=== PATIENT | female | born 1985 | race Caucasian/White ===

== ENCOUNTER 2016-12-27 00:35 | Observation (INO) | payer MEDICAID ==
[2016-12-27] VITALS (27 sets, daily range): BP systolic 98–138; BP diastolic 60–91
[~2016-12-27] VITALS: Ht 167.6 cm; Wt 87.6 kg
[~2016-12-27 00:35] MED LIST: ACHD5005 PO; ALPR.25T PO; DOCU100C37 PO; FLUO20CA42 PO; HYDR-3812 PO; IBP800T PO; IBUP-1773 PO; LEVO500T69 PO; MAGN400O7 PO; NAPR-243 PO; NEOM10SO5 LEFT EAR; NITR-65 PO; OXYC-12 PO; PRD20T PO; PREN1TAB14 PO; TRM50T PO
--- OUTSIDE RECORDS SUMMARY | 2016-12-27 00:42 | XMS REPORT ---
Author Author JANETH MANUEL [facility] eClinicalWorks Address Unknown Phone Unavailable Care Team Providers Care Lap Cutter Name Role Phone JANETH MANUEL CP Unavailable Allergies No Known Allergies Problems Problem Type Condition Code Onset Dates Condition Status Problem Dermatophytosis B35.9 Active Problem Glycosuria R81 Active Problem Low back pain M54.5 Active Problem Galactorrhea not associated with childbirth N64.3 Active Problem Nausea and vomiting during O21.9 Active Problem Tobacco use affecting in second trimester, antepartum O99.332 Active Problem BMI 31.0-31.9,adult Z68.31 Active Problem Agoraphobia F40.00 Active Problem Social anxiety disorder F40.10 Active Problem History of section complicating O34.21 Active Problem Bipolar disorder, unspecified F31.9 Active Medications No Known Medications Results No Known Results Summary Purpose eClinicalWorks Submission
--- OUTSIDE RECORDS SUMMARY | 2016-12-27 00:43 | XMS REPORT ---
Author Author RUBI PENN [facility] Address [address] [place] [address] Care Team Providers Care Commercial Credit Analyst Name Role Phone PENNRUBI Unavailable PROBLEMS Type Condition ICD9-CM Code [id number] Code Onset Dates Condition Status SNOMED Code Assessment control counseling Z30.9 Feb, Active 18841592 Assessment depression F53 Feb, Active 25338673 Problem BMI 31.0-31.9,adult Z68.31 Active 367911759 Problem History of section complicating O34.21 Active 659496185 Problem Social anxiety disorder F40.10 Active 09086288 Assessment Routine follow-up Z39.2 Feb, Active 615129422 Problem Bipolar disorder, unspecified F31.9 Active 30325691 Problem Agoraphobia F40.00 Active 64241720 ALLERGIES Substance Reaction Event Type Date Status Penicillin V Potassium Unknown Drug Allergy Feb, Active Bactrim Unknown Drug Allergy Feb, Active Amoxicillin Unknown Drug Allergy Feb, Active SOCIAL HISTORY No smoking Hx information available PLAN OF CARE VITAL SIGNS Height 65 in 2016-02-22 Weight 192.0 lbs 2016-02-22 Heart Rate 74 bpm 2016-02-22 Respiratory Rate 18 2016-02-22 BMI 31.95 kg/m2 2016-02-22 Blood pressure systolic 126 mmHg 2016-02-22 Blood pressure diastolic 70 mmHg 2016-02-22 MEDICATIONS Medication Instructions Dosage Frequency Start Date End Date Duration Status 28-0.8 MG Orally daily 1 24h Jun, Active Ortho Micronor 0.35 MG Orally Once a day 1 tablet 24h Feb, Active Prozac 20 MG Orally Once a day 1 capsule in the morning 24h Feb, Active RESULTS No Results PROCEDURES Procedure Date Ordered Related Diagnosis Body Site Office Visit, Est Pt., Level 3 Feb 22, 2016 IMMUNIZATIONS No Known Immunizations
--- OUTSIDE RECORDS SUMMARY | 2016-12-27 00:43 | XMS REPORT ---
Author Author JANETH MANUEL [facility] eClinicalWorks Address Unknown Phone Unavailable Care Team Providers Care Air Crew Supervisor Name Role Phone JNAETH MANUEL Unavailable Allergies No Known Allergies Problems Problem [...] Problem Bipolar disorder, unspecified F31.9 Active Medications Medication Code System Code Instructions Start Date End Date Status Dosage Flagyl [facility] [address]-82 500 MG Orally One time Jul 22, 2015 4 tablet Results No Known Results Summary Purpose eClinicalWorks Submission
--- OUTSIDE RECORDS SUMMARY | 2016-12-27 00:43 | XMS REPORT ---
Author Author HERB STEPHENS [facility] eClinicalWorks Address Unknown Phone Unavailable Care Team Providers Care Mental Health Therapist Name Role Phone HERB STEPHENS CP Unavailable Allergies, Adverse Reactions, Alerts Substance Reaction Event Type Penicillin V Potassium Info Not Available Drug Allergy Bactrim Info Not Available Drug Allergy Amoxicillin Info Not Available Drug Allergy Problems Problem Type Condition Code Onset Dates Condition Status Assessment Moderate episode of recurrent major depressive disorder F33.1 Active Assessment Social anxiety disorder F40.10 Active Assessment Borderline personality disorder F60.3 Active Problem Moderate episode of recurrent major depressive disorder F33.1 Active Problem BMI 31.0-31.9,adult Z68.31 Active Problem Borderline personality disorder F60.3 Active Problem Agoraphobia F40.00 Active Problem Social anxiety disorder F40.10 Active Problem History of section complicating O34.21 Active Problem Bipolar disorder, unspecified F31.9 Active Medications Medication Code System Code Instructions Start Date End Date Status [facility] [address]-01 20 mg Orally Once a day 1 capsule in the morning Ortho Micronor [facility] [address]-05 0.35 MG Orally Once a day Feb 22, 2016 1 tablet [facility] 56452-20984 28-0.8 MG Orally daily Jun 20, 2015 1 Prozac [facility] [address]-35 10 MG Orally Once a day 1 capsule in the morning Procedures Procedure Coding System Code Date Office Visit, Est Pt., Level 2 CPT-4 40307 Apr 20, 2016 Vital Signs Date/Time: Apr 20, 2016 Cardiac Monitoring Heart Rate 68 bpm Weight 184.4 lbs Height 65 in BMI 30.68 Index Blood Pressure Diastolic 76 mmHg Blood Pressure Systolic 122 mmHg Results No Known Results Summary Purpose eClinicalWorks Submission
--- OUTSIDE RECORDS SUMMARY | 2016-12-27 00:43 | XMS REPORT ---
Author RUBI Gonzalez [facility] eClinicalWorks Address Unknown Phone Unavailable Care Team Providers Care Arts Administrator Or Manager Name Role Phone RUBI PENN CP Unavailable Allergies, Adverse Reactions, Alerts Substance Reaction Event Type Penicillin V Potassium Info Not Available Drug Allergy Bactrim Info Not Available Drug Allergy Amoxicillin Info Not Available Drug Allergy Problems Problem Type Condition Code Onset Dates Condition Status Assessment care, subsequent in third trimester Z34.83 Active Problem Social anxiety disorder F40.10 Active Problem Dermatophytosis B35.9 Active Assessment 37 weeks gestation of Z3A.37 Active Problem Need for MMR vaccine Z23 Active Problem BMI 31.0-31.9,adult Z68.31 Active Problem care, subsequent in third trimester Z34.83 Active Problem Bipolar disorder, unspecified F31.9 Active Problem Agoraphobia F40.00 Active Problem Tobacco use affecting in second trimester, antepartum O99.332 Active Problem History of section complicating O34.21 Active Medications Medication Code System Code Instructions Start Date End Date Status Dosage [facility] [address]07 28-0.8 MG Orally daily Jun 20, 2015 1 Procedures Procedure Coding System Code Date Office Visit, Est Pt., Level 3 CPT-4 62984 December 26, 2015 URINE-NO MICRO CPT-4 91160 December 26, 2015 Vital Signs Date/Time: December 26, 2015 Cardiac Monitoring Heart Rate 92 bpm Weight 223.7 lbs Height 65 in Blood Pressure Diastolic 78 mmHg Blood Pressure Systolic 122 mmHg Results No Known Results Summary Purpose eClinicalWorks Submission
--- OUTSIDE RECORDS SUMMARY | 2016-12-27 00:43 | XMS REPORT ---
Author Author RUBI PENN [facility] Address [address] [place] [address] Care Team Providers Care Major Donor Coordinator Name Role Phone RUBI PENN Unavailable PROBLEMS Type Condition ICD9-CM Code [id number] Code Onset Dates Condition Status SNOMED Code Problem BMI 31.0-31.9,adult Z68.31 Active 762015356 Problem History of section complicating O34.21 Active 783024804 Problem Social anxiety disorder F40.10 Active 07818313 Problem Bipolar disorder, unspecified F31.9 Active 69736907 Problem Agoraphobia F40.00 Active 94256042 ALLERGIES Unknown Allergies SOCIAL HISTORY No smoking Hx information available PLAN OF CARE VITAL SIGNS MEDICATIONS Unknown Medications RESULTS No Results PROCEDURES No Known procedures IMMUNIZATIONS No Known Immunizations
--- OUTSIDE RECORDS SUMMARY | 2016-12-27 00:43 | XMS REPORT ---
Author RUBI oGnzalez [facility] eClinicalWorks Address Unknown Phone Unavailable Care Team Providers Care Technical Mgr Name Role Phone RUBI PENN CP Unavailable Allergies No Known Allergies Problems Problem Type Condition Code Onset Dates Condition Status Assessment care, subsequent in third trimester Z34.83 Active Problem Social anxiety disorder F40.10 Active Problem Dermatophytosis B35.9 Active Assessment 38 weeks gestation of Z3A.38 Active Problem Need for MMR vaccine Z23 Active Problem BMI 31.0-31.9,adult Z68.31 Active Problem care, subsequent in third trimester Z34.83 Active Problem Bipolar disorder, unspecified F31.9 Active Problem Agoraphobia F40.00 Active Problem Tobacco use affecting in second trimester, antepartum O99.332 Active Problem History of section complicating O34.21 Active Medications Medication Code System Code Instructions Start Date End Date Status Dosage [facility] [address]402 28-0.8 MG Orally daily Jun 20, 2015 1 Procedures Procedure Coding System Code Date URINE-NO MICRO CPT-4 08083 January 02, 2016 Office Visit, Est Pt., Level 3 CPT-4 05009 January 02, 2016 Vital Signs Date/Time: January 02, 2016 Blood Pressure Systolic 130 mmHg Weight 224.5 lbs Height 65 in Blood Pressure Diastolic 76 mmHg Results No Known Results Summary Purpose eClinicalWorks Submission
--- OUTSIDE RECORDS SUMMARY | 2016-12-27 00:43 | XMS REPORT ---
Author Author JANETH Palmer [facility] Address Unknown Care Team Providers Care Obstetrics Gyn Physician Name Role Phone JANETH Palmer Unavailable PROBLEMS Type Condition ICD9-CM Code [id number] Code Onset Dates Condition Status SNOMED Code Problem BMI 31.0-31.9,adult Z68.31 Active 348668212 Problem History of section complicating O34.21 Active 135085749 Problem Social anxiety disorder F40.10 Active 71458090 Problem Bipolar disorder, unspecified F31.9 Active 08508606 Problem Agoraphobia F40.00 Active 56066669 ALLERGIES Unknown Allergies SOCIAL HISTORY No smoking Hx information available PLAN OF CARE VITAL SIGNS MEDICATIONS Unknown Medications RESULTS No Results PROCEDURES No Known procedures IMMUNIZATIONS No Known Immunizations
--- OUTSIDE RECORDS SUMMARY | 2016-12-27 00:43 | XMS REPORT ---
Author Author RUBI PENN [facility] Address [address] [place] [address] Care Team Providers Care Licensing Officer Name Role Phone RUBI PENN Unavailable PROBLEMS Type Condition ICD9-CM Code OJU23-FH Code Onset Dates Condition Status SNOMED Code Problem BMI 31.0-31.9,adult Z68.31 Active 110119128 Problem History of section complicating O34.21 Active 075530675 Problem Social anxiety disorder F40.10 Active 96931394 Problem Bipolar disorder, unspecified F31.9 Active 35051642 Problem Agoraphobia F40.00 Active 98771909 ALLERGIES Unknown Allergies SOCIAL HISTORY No smoking Hx information available PLAN OF CARE VITAL SIGNS MEDICATIONS Unknown Medications RESULTS No Results PROCEDURES No Known procedures IMMUNIZATIONS No Known Immunizations
--- OUTSIDE RECORDS SUMMARY | 2016-12-27 00:43 | XMS REPORT ---
Author Author RUBI EPNN [facility] Address [address] [place] [address] Care Team Providers Care Special Education Associate Name Role Phone RUBI PENN Unavailable PROBLEMS Type Condition ICD9-CM Code UZU45-UK Code Onset Dates Condition Status SNOMED Code Problem BMI 31.0-31.9,adult Z68.31 Active 577031308 Problem History of section complicating O34.21 Active 679559632 Problem Social anxiety disorder F40.10 Active 26882381 Problem Bipolar disorder, unspecified F31.9 Active 39838385 Problem Agoraphobia F40.00 Active 52674541 ALLERGIES Unknown Allergies SOCIAL HISTORY No smoking Hx information available PLAN OF CARE VITAL SIGNS MEDICATIONS Unknown Medications RESULTS No Results PROCEDURES No Known procedures IMMUNIZATIONS No Known Immunizations
--- OUTSIDE RECORDS SUMMARY | 2016-12-27 00:43 | XMS REPORT ---
Author Author JANETH MANUEL [facility] eClinicalWorks Address Unknown Phone Unavailable Care Team Providers Care Planning Consultant Name Role Phone JANETH MANUEL Unavailable Allergies No Known Allergies Problems Problem Type Condition Code Onset Dates Condition Status Problem Dermatophytosis B35.9 Active Problem Glycosuria R81 Active Problem Low back pain M54.5 Active Problem Nausea and vomiting during O21.9 Active Problem Tobacco use affecting in second trimester, antepartum O99.332 Active Problem BMI 31.0-31.9,adult Z68.31 Active Problem Agoraphobia F40.00 Active Problem Social anxiety disorder F40.10 Active Problem History of section complicating O34.21 Active Problem Bipolar disorder, unspecified F31.9 Active Assessment Headache R51 Active Assessment 14 weeks gestation of Z3A.14 Active Assessment Routine screening for STI (sexually transmitted infection) Z11.3 Active Assessment care, subsequent in second trimester Z34.82 Active Assessment UTI (urinary tract infection) in in second trimester O23.42 Active Problem Galactorrhea not associated with childbirth N64.3 Active Medications Medication Code System Code Instructions Start Date End Date Status Dosage [facility] [address]189 28-0.8 MG Orally daily Jun 20, 2015 1 Diclegis [facility] [address]-95 10-10 MG Orally Once a day Jun 20, 2015 August 19, 2015 2 tablets at bedtime on an empty stomach Macrobid [facility] [address]-00 100 MG Orally every 12 hrs Jul 21, 2015Jul 1 capsule with food Procedures Procedure Coding System Code Date No Charge CPT-4 79500 Jul 21, 2015 TRICHOMONAS ASSAY W/OPTIC CPT-4 63793 Jul 21, 2015 URINALYSIS, AUTO, W/O SCOPE CPT-4 54665 Jul 21, 2015 Office Visit, Est Pt., Level 3 CPT-4 11629 Jul 21, 2015 CULTURE, BACTERIA, OTHER CPT-4 50377 Jul 21, 2015 URINE CULTURE/COLONY COUNT CPT-4 50517 Jul 21, 2015 Vital Signs Date/Time: Jul 21, 2015 Temperature 98.0 F Weight 186.9 lbs Height 65 in BMI 31.102 Index Blood Pressure Diastolic 70 mmHg Blood Pressure Systolic 118 mmHg Cardiac Monitoring Heart Rate 78 bpm Results Name Result Date Reference Range Unit Abnormality Flag UA LONG DIP (IN HOUSE) ----DARREN 1+ 20150721 ----NIT positive 20150721 ----SG 1.030 20150721 ----KET trace 20150721 ----RUTH 1+ 20150721 ----GLU neg 20150721 ----Odor no 20150721 ----pH 6.0 20150721 ----BLO 1+ 20150721 ----URO 0.2 20150721 ----Protein 2+ 20150721 ----Lot # [id number] ----Exp date 20150721 ----Clarity slightly cloudy 20150721 ----Color dark yellow 20150721 TRICHOMONAS (IN HOUSE) ----Exp date 20150721 ----Control + 20150721 ----Lot # [id number] ----TRICHOMONAS positive 20150721 Summary Purpose eClinicalWorks Submission
--- OUTSIDE RECORDS SUMMARY | 2016-12-27 00:44 | XMS REPORT ---
Author Author JANETH MANUEL [facility] eClinicalWorks Address Unknown Phone Unavailable Care Team Providers Care Train Control Electronic Technician Name Role Phone JANETH MANUEL Unavailable Allergies, Adverse Reactions, Alerts Substance Reaction Event Type Penicillin V Potassium Info Not Available Drug Allergy Bactrim Info Not Available Drug Allergy Amoxicillin Info Not Available Drug Allergy Problems Problem Type Condition Code Onset Dates Condition Status Problem Dermatophytosis B35.9 Active Problem Glycosuria R81 Active Problem Low back pain M54.5 Active Problem Nausea and vomiting during O21.9 Active Assessment care, subsequent in first trimester Z34.81 Active Problem Tobacco use affecting in second trimester, antepartum O99.332 Active Assessment Tobacco use affecting in first trimester, antepartum O99.331 Active Problem BMI 31.0-31.9,adult Z68.31 Active Problem Agoraphobia F40.00 Active Problem Social anxiety disorder F40.10 Active Problem History of section complicating O34.21 Active Problem Bipolar disorder, unspecified F31.9 Active Assessment Bipolar disorder, unspecified F31.9 Active Assessment History of section complicating O34.21 Active Assessment Social anxiety disorder F40.10 Active Assessment Agoraphobia F40.00 Active Assessment Nausea and vomiting during O21.9 Active Assessment BMI 31.0-31.9,adult Z68.31 Active Assessment Influenza vaccination administered at current visit Z23 Active Assessment Normal in multigravida Z34.80 Active Assessment with 9 completed weeks gestation Z3A.09 Active Problem Galactorrhea not associated with childbirth N64.3 Active Medications Medication Code System Code Instructions Start Date End Date Status Dosage [facility] [address]70 28-0.8 MG Orally daily Jun 20, 2015 1 Diclegis [facility] [address]-81 10-10 MG Orally Once a day Jun 20, 2015 August 19, 2015 2 tablets at bedtime on an empty stomach Procedures Procedure Coding System Code Date GLUCOSE TEST CPT-4 03311 Jun 20, 2015 BLOOD TYPING, ABO CPT-4 22394 Jun 20, 2015 URINE TEST CPT-4 42254 Jun 20, 2015 RUBELLA ANTIBODY CPT-4 84596 Jun 20, 2015 COMPLETE CBC W/AUTO DIFF WBC CPT-4 80121 Jun 20, 2015 BLOOD TYPING, RH (D) CPT-4 01069 Jun 20, 2015 URINE CULTURE/COLONY COUNT CPT-4 72311 Jun 20, 2015 URINALYSIS, AUTO, W/O SCOPE CPT-4 03289 Jun 20, 2015 FLUARIX QUAD (3 & UP)-[facility]-2014 CPT-4 11152 Jun 20, 2015 ASSAY THYROID STIM HORMONE CPT-4 29917 Jun 20, 2015 SINGLE IMMUNIZATION ADMIN CPT-4 69067 Jun 20, 2015 Office Visit, Est Pt., Level 3 CPT-4 62191 Jun 20, 2015 No Charge CPT-4 05551 Jun 20, 2015 VENIPUNCT, ROUTINE* CPT-4 36271 Jun 20, 2015 RBC ANTIBODY SCREEN CPT-4 38932 Jun 20, 2015 Vital Signs Date/Time: Jun 20, 2015 Temperature 97.6 F Weight 188.2 lbs Height 65 in BMI 31.318 Index Blood Pressure Diastolic 74 mmHg Blood Pressure Systolic 132 mmHg Cardiac Monitoring Heart Rate 88 bpm Results Name Result Date Reference Range Unit Abnormality Flag ROUTINE VENIPUNCTURE TSH () ----TSH 2.200 20150620 0.450-4.500 uIU/mL TEST, URINE (IN HOUSE) ----RESULTS POSITIVE 20150620 ----Lot # [id number] ----Control + 20150620 ----Exp date 20150620 UA LONG DIP (IN HOUSE) ----RUTH negative 20150620 ----GLU negative 20150620 ----SG >=1.030 20150620 ----KET negative 20150620 ----pH 6.0 20150620 ----Protein negative 20150620 ----BLO 1+ 20150620 ----DARREN 1+ 20150620 ----Color dark yellow 20150620 ----Odor no 20150620 ----Exp date 20150620 ----URO 0.2 E.U./dL 20150620 ----NIT negative 20150620 ----Clarity clear 20150620 ----Lot # [id number] RUBELLA ANTIBODIES, IgG ----Rubella Antibodies, IgG <0.90 20150620 Immune >0.99 index L ANTIBODY SCREEN ----Antibody Screen Negative 20150620 Negative BLOOD TYPE/RH FACTOR ----ABO Grouping A 20150620 ----Rh Factor Positive 20150620 GLUCOSE SHAWN 1 HOUR ----Gestational Diabetes Screen 110 20150620 65-139 mg/dL CBC ----Hemoglobin 13.6 25290786 11.1-15.9 g/dL ----RBC 4.43 01286211 3.77-5.28 x10E6/uL ----MCV 94 81223984 79-97 fL ----Hematocrit 41.7 64061382 34.0-46.6 % ----MCHC 32.6 96906361 31.5-35.7 g/dL ----MCH 30.7 92032435 26.6-33.0 pg ----Platelets 287 [id number] 150-379 x10E3/uL ----RDW 12.8 64779870 12.3-15.4 % ----Neutrophils 70 47301118 % ----Monocytes 6 00749559 % ----Lymphs 23 07063057 % ----Basos 0 76021166 % ----Eos 1 09674865 % ----Immature Grans (Abs) 0.0 84699759 0.0-0.1 x10E3/uL ----Lymphs (Absolute) 2.2 67713127 0.7-3.1 x10E3/uL ----WBC 9.6 27456196 3.4-10.8 x10E3/uL ----Immature Granulocytes 0 53943656 % ----Neutrophils (Absolute) 6.7 78060061 1.4-7.0 x10E3/uL ----Baso (Absolute) 0.0 25294576 0.0-0.2 x10E3/uL ----Monocytes(Absolute) 0.6 16457593 0.1-0.9 x10E3/uL ----Eos (Absolute) 0.1 79287947 0.0-0.4 x10E3/uL Immunizations Vaccine Administration Date FLUARIX QUAD (3 & UP)-[facility]-2014Jun 20, 2015 Summary Purpose eClinicalWorks Submission
--- OUTSIDE RECORDS SUMMARY | 2016-12-27 00:44 | XMS REPORT ---
Author Author JAY JAY PIERRE [facility] eClinicalWorks Address Unknown Phone Unavailable Care Team Providers Care Sap Pi Developer Name Role Phone JAY JAY PIERRE CP Unavailable Allergies No Known Allergies Problems Problem Type Condition ICD-9 Code Onset Dates Condition Status Assessment Irritable bowel syndrome 564.1 Active Problem Pain in joint, forearm 719.43 Active Problem Nonsuppurative otitis media, not specified as acute or chronic 381.4 Active Problem Galactorrhea not associated with childbirth 611.6 Active Problem Incomplete spontaneous without mention of complication 634.91 Active Problem examination or test, positive result V72.42 Active Problem Engorgement of breast, 676.24 Active Problem 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, 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 Problem General counseling for prescription of oral contraceptives V25.01 Active Problem Screening for malignant neoplasm of the cervix V76.2 Active Problem Lumbago 724.2 Active Problem Urinary frequency 788.41 Active Problem Screening examination for venereal disease V74.5 Active Problem Glycosuria 791.5 Active Problem Allergy, unspecified not elsewhere classified 995.3 Active Problem Dermatophytosis of other specified sites 110.8 Active Problem Routine gynecological examination V72.31 Active Problem Routine follow-up V24.2 Active Problem Need for prophylactic vaccination and inoculation, Influenza V04.81 Active Problem Need for prophylactic vaccination and inoculation against rubella alone V04.3 Active Problem Previous delivery, unspecified as to episode of care or not applicable 654.20 Active Problem Supervision of other normal V22.1 Active Problem DTAP TEST V06.1 Active Problem Screening for diabetes mellitus V77.1 Active Problem Urinary tract infection, site not specified 599.0 Active Problem Screening for iron deficiency anemia V78.0 Active Problem Unspecified antepartum hemorrhage, unspecified as to episode of care 641.90 Active Problem Screening of Streptococcus B V28.6 Active Problem Threatened , unspecified as to episode of care 640.00 Active Problem Other postprocedural status V45.89 Active Medications No Known Medications Procedures Procedure Coding System Code Date COMPLETE CBC W/AUTO DIFF WBC CPT-4 60986 Mar 03, 2015 COMPREHEN METABOLIC PANEL CPT-4 71449 Mar 03, 2015 ASSAY THYROID STIM HORMONE CPT-4 89599 Mar 03, 2015 VENIPUNCT, ROUTINE* CPT-4 14883 Mar 03, 2015 X-RAY EXAM OF ABDOMEN CPT-4 66632 Mar 03, 2015 Results Name Result Date Reference Range Unit Abnormality Flag ROUTINE VENIPUNCTURE Summary Purpose eClinicalWorks Submission
--- OUTSIDE RECORDS SUMMARY | 2016-12-27 00:44 | XMS REPORT ---
Author Author HERB STEPHENS [facility] eClinicalWorks Address Unknown Phone Unavailable Care Team Providers Care Air Traffic Control Operator Name Role Phone HERB STEPHENS CP Unavailable [...] Instructions Start Date End Date Status Dosage Prozac [facility] [address]-69 10 MG Orally Once a day Feb 22, 2016 1 capsule in the morning Prozac [facility] [address]-97 20 mg Orally Once a day Mar 23, 2016 1 capsule in the morning Ortho Micronor [facility] [address]-49 0.35 MG Orally Once a day Feb 22, 2016 1 tablet [facility] [address] 28-0.8 MG Orally daily Jun 20, 2015 1 Procedures Procedure Coding System Code Date Office Visit, Est Pt., Level 3 CPT-4 00143 Mar 23, 2016 Vital Signs Date/Time: Mar 23, 2016 BMI 31.58 Index Weight 189.8 lbs Height 65 in Results No Known Results Summary Purpose eClinicalWorks Submission
[2016-12-27] MEDS ORDERED: NS IV 1000 ML 1,000 ML IV ONE (00:46)
--- OUTSIDE RECORDS SUMMARY | 2016-12-27 00:47 | XMS REPORT | Continuity of Care Document ---
Author Author Counts Include [facility] Address Unknown Phone Unavailable Allergies Active Description Code Type Severity Reaction Onset Reported/Identified Relationship to Patient Clinical Status Yes Penicillins Drug Allergy N/A N/A 11/26/2008 Yes Penicillins Drug Allergy 11/26/2008 Yes Bactrim Drug Allergy N/A N/A 02/05/2012 Yes Bactrim Drug Allergy 02/05/2012 Yes Penicillins [id number] Drug Allergy Moderate HIVES 02/10/2012 Yes sulfamethoxazole [id number] Drug Allergy Mild RASH 02/10/2012 Yes trimethoprim [id number] Drug Allergy Mild RASH 02/10/2012 Medications Problems Date Dx Coded Attending Type Code Diagnosis Diagnosed By 02/26/2008 RUBI PENN DO V25.49 Surveillance Of Other Contraceptive Method 02/26/2008 RUBI PENN DO V58.69 Medication High Risk 02/26/2008 V25.49 Surveillance Of Other Contraceptive Method 02/26/2008 V58.69 Medication High Risk 02/26/2008 RUBI PENN DO V25.49 Surveillance Of Other Contraceptive Method 02/26/2008 RUBI PENN DO V58.69 Medication High Risk 02/26/2008 RUBI PENN DO V25.49 Surveillance Of Other Contraceptive Method 02/26/2008 RUBI PENN DO V58.69 Medication High Risk 02/26/2008 V25.49 Surveillance Of Other Contraceptive Method 02/26/2008 V58.69 Medication High Risk 02/26/2008 V25.49 Surveillance Of Other Contraceptive Method 02/26/2008 V58.69 Medication High Risk 02/26/2008 RUBI PENN DO V25.49 Surveillance Of Other Contraceptive Method 02/26/2008 RUBI PENN DO V58.69 Medication High Risk 02/26/2008 RUBI PENN DO V25.49 Surveillance Of Other Contraceptive Method 02/26/2008 RUBI PENN DO V58.69 Medication High Risk 02/26/2008 V25.49 Surveillance Of Other Contraceptive Method 02/26/2008 V58.69 Medication High Risk 02/26/2008 V25.49 Surveillance Of Other Contraceptive Method 02/26/2008 V58.69 Medication High Risk 02/26/2008 V25.49 Surveillance Of Other Contraceptive Method 02/26/2008 V58.69 Medication High Risk 02/26/2008 V25.49 Surveillance Of Other Contraceptive Method 02/26/2008 V58.69 Medication High Risk 02/26/2008 V25.49 Surveillance Of Other Contraceptive Method 02/26/2008 V58.69 Medication High Risk 02/26/2008 V25.49 Surveillance Of Other Contraceptive Method 02/26/2008 V58.69 Medication High Risk 02/26/2008 VIRAJ LIBRARY TECHNICIAN, JOSÉ LUIS S V25.49 Surveillance Of Other Contraceptive Method 02/26/2008 VIRAJ LIBRARY TECHNICIAN, JOSÉ LUIS S V58.69 Medication High Risk 02/26/2008 PENN DO RUBI K V25.49 Surveillance Of Other Contraceptive Method 02/26/2008 PENN DO RUBI K V58.69 Medication High Risk 02/26/2008 ANGELO LIBRARY TECHNICIAN, ROMA A V25.49 Surveillance Of Other Contraceptive Method 02/26/2008 ANGELO LIBRARY TECHNICIAN, ROMA A V58.69 Medication High Risk 02/26/2008 ANGELO LIBRARY TECHNICIAN ROMA A V25.49 Surveillance Of Other Contraceptive Method 02/26/2008 ANGELO LIBRARY TECHNICIAN, ROMA A V58.69 Medication High Risk 02/26/2008 ANGELO LIBRARY TECHNICIAN ROMA A V25.49 Surveillance Of Other Contraceptive Method 02/26/2008 ANGELO LIBRARY TECHNICIAN, ROMA A V58.69 Medication High Risk 02/26/2008 ANGELO LIBRARY TECHNICIAN, ROMA A V25.49 Surveillance Of Other Contraceptive Method 02/26/2008 ANGELO LUCIANA, ROMA A V58.69 Medication High Risk 02/26/2008 KRIS SHOEMAKER APRN V25.49 Surveillance Of Other Contraceptive Method 02/26/2008 KRIS SHOEMAKER APRN V58.69 Medication High Risk 02/26/2008 ANGELO CHOWDHURY ROMA A V25.49 Surveillance Of Other Contraceptive Method 02/26/2008 ANGELO CHOWDHURY ROMA A V58.69 Medication High Risk 02/26/2008 ANGELO LIBRARY TECHNICIAN, ROMA A V25.49 Surveillance Of Other Contraceptive Method 02/26/2008 ANGELO LIBRARY TECHNICIAN, ROMA A V58.69 Medication High Risk 02/26/2008 ANGELO LIBRARY TECHNICIAN, ROMA A V25.49 Surveillance Of Other Contraceptive Method 02/26/2008 ANGELO LIBRARY TECHNICIAN, ROMA A V58.69 Medication High Risk 02/26/2008 TJ HOWELL MD V25.49 Surveillance Of Other Contraceptive Method 02/26/2008 TJ HOWELL MD V58.69 Medication High Risk 03/07/2009 PENN DO, RUBI K 784.0 Headache 03/07/2009 784.0 Headache 03/07/2009 PENN DO, RUBI K 784.0 Headache 03/07/2009 PENN DO, RUBI K 784.0 Headache 03/07/2009 784.0 Headache 03/07/2009 784.0 Headache 03/07/2009 PENN DO, RUBI K 784.0 Headache 03/07/2009 PENN DO, RUBI K 784.0 Headache 03/07/2009 784.0 Headache 03/07/2009 784.0 Headache 03/07/2009 784.0 Headache 03/07/2009 784.0 Headache 03/07/2009 784.0 Headache 03/07/2009 784.0 Headache 03/07/2009 JOSÉ LUIS CALI APRN 784.0 Headache 03/07/2009 PENN DO, RUBI K 784.0 Headache 03/07/2009 ANGELO LIBRARY TECHNICIAN, ROMA A 784.0 Headache 03/07/2009 ANGLEO LIBRARY TECHNICIAN, ROMA A 784.0 Headache 03/07/2009 ANGELO LIBRARY TECHNICIAN, ROMA A 784.0 Headache 03/07/2009 ANGELO LIBRARY TECHNICIAN, ROMA A 784.0 Headache 03/07/2009 KRIS SHOEMAKER APRN 784.0 Headache 03/07/2009 ANGELO LIBRARY TECHNICIAN, ROMA A 784.0 Headache 03/07/2009 ANGELO LIBRARY TECHNICIAN, ROMA A 784.0 Headache 03/07/2009 ANGELO LIBRARY TECHNICIAN, ROMA A 784.0 Headache 03/07/2009 TJ HOWELL MD 784.0 Headache 09/08/2009 PENN DO, RUBI K 535.40 Other Specified Gastritis, Without Mention Of Hemorrhage 09/08/2009 PENN DO, RUBI K 599.0 Urinary Tract Infection, Site Not Specified 09/08/2009 535.40 Other Specified Gastritis, Without Mention Of Hemorrhage 09/08/2009 599.0 Urinary Tract Infection, Site Not Specified 09/08/2009 PENN DO, RUBI K 535.40 Other Specified Gastritis, Without Mention Of Hemorrhage 09/08/2009 PENN DO, RUBI K 599.0 Urinary Tract Infection, Site Not Specified 09/08/2009 PENN DO, RUBI K 535.40 Other Specified Gastritis, Without Mention Of Hemorrhage 09/08/2009 PENN DO, RUBI K 599.0 Urinary Tract Infection, Site Not Specified 09/08/2009 535.40 Other Specified Gastritis, Without Mention Of Hemorrhage 09/08/2009 599.0 Urinary Tract Infection, Site Not Specified 09/08/2009 535.40 Other Specified Gastritis, Without Mention Of Hemorrhage 09/08/2009 599.0 Urinary Tract Infection, Site Not Specified 09/08/2009 PENN DO, RUBI K 535.40 Other Specified Gastritis, Without Mention Of Hemorrhage 09/08/2009 PENN DO, RUBI K 599.0 Urinary Tract Infection, Site Not Specified 09/08/2009 PENN DO, RUBI K 535.40 Other Specified Gastritis, Without Mention Of Hemorrhage 09/08/2009 PENN DO, RUBI K 599.0 Urinary Tract Infection, Site Not Specified 09/08/2009 535.40 Other Specified Gastritis, Without Mention Of Hemorrhage 09/08/2009 599.0 Urinary Tract Infection, Site Not Specified 09/08/2009 535.40 Other Specified Gastritis, Without Mention Of Hemorrhage 09/08/2009 599.0 Urinary Tract Infection, Site Not Specified 09/08/2009 535.40 Other Specified Gastritis, Without Mention Of Hemorrhage 09/08/2009 599.0 Urinary Tract Infection, Site Not Specified 09/08/2009 535.40 Other Specified Gastritis, Without Mention Of Hemorrhage 09/08/2009 599.0 Urinary Tract Infection, Site Not Specified 09/08/2009 535.40 Other Specified Gastritis, Without Mention Of Hemorrhage 09/08/2009 599.0 Urinary Tract Infection, Site Not Specified 09/08/2009 535.40 Other Specified Gastritis, Without Mention Of Hemorrhage 09/08/2009 599.0 Urinary Tract Infection, Site Not Specified 09/08/2009 VIRAJ LIBRARY TECHNICIAN, JOSÉ LUIS S 535.40 Other Specified Gastritis, Without Mention Of Hemorrhage 09/08/2009 VIRAJ LIBRARY TECHNICIAN, JOSÉ LUIS S 599.0 Urinary Tract Infection, Site Not Specified 09/08/2009 PENN DO, RUBI K 535.40 Other Specified Gastritis, Without Mention Of Hemorrhage 09/08/2009 PENN DO, RUBI K 599.0 Urinary Tract Infection, Site Not Specified 09/08/2009 ANGELO LIBRARY TECHNICIAN, ROMA A 535.40 Other Specified Gastritis, Without Mention Of Hemorrhage 09/08/2009 ANGELO LIBRARY TECHNICIAN, ROMA A 599.0 Urinary Tract Infection, Site Not Specified 09/08/2009 ANGELO LIBRARY TECHNICIAN, ROMA A 535.40 Other Specified Gastritis, Without Mention Of Hemorrhage 09/08/2009 ANGELO LIBRARY TECHNICIAN, ROMA A 599.0 Urinary Tract Infection, Site Not Specified 09/08/2009 ANGELO LIBRARY TECHNICIAN, ROMA A 535.40 Other Specified Gastritis, Without Mention Of Hemorrhage 09/08/2009 ANGELO LIBRARY TECHNICIAN, ROMA A 599.0 Urinary Tract Infection, Site Not Specified 09/08/2009 ANGELO LIBRARY TECHNICIAN, ROMA A 535.40 Other Specified Gastritis, Without Mention Of Hemorrhage 09/08/2009 ANGELO LIBRARY TECHNICIAN, ROMA A 599.0 Urinary Tract Infection, Site Not Specified 09/08/2009 SAHARA LIBRARY TECHNICIAN, KRIS T 535.40 Other Specified Gastritis, Without Mention Of Hemorrhage 09/08/2009 SAHARA LIBRARY TECHNICIAN KRIS T 599.0 Urinary Tract Infection, Site Not Specified 09/08/2009 ANGELO LIBRARY TECHNICIAN, ROMA A 535.40 Other Specified Gastritis, Without Mention Of Hemorrhage 09/08/2009 ANGELO LIBRARY TECHNICIAN, ROMA A 599.0 Urinary Tract Infection, Site Not Specified 09/08/2009 ANGELO LIBRARY TECHNICIAN, ROMA A 535.40 Other Specified Gastritis, Without Mention Of Hemorrhage 09/08/2009 ANGELO LIBRARY TECHNICIAN, ROMA A 599.0 Urinary Tract Infection, Site Not Specified 09/08/2009 ANGELO LIBRARY TECHNICIAN, ROMA A 535.40 Other Specified Gastritis, Without Mention Of Hemorrhage 09/08/2009 ANGELO LIBRARY TECHNICIAN, ROMA A 599.0 Urinary Tract Infection, Site Not Specified 09/08/2009 TJ HOWELL MD 535.40 Other Specified Gastritis, Without Mention Of Hemorrhage 09/08/2009 LYNDA BURR, TJ 599.0 Urinary Tract Infection, Site Not Specified 11/09/2009 Ot 786.50 11/09/2009 Ot 786.52 11/10/2009 RUBI PENN DO V72.31 Scientific Database Curator Exam, Routine 11/10/2009 V72.31 Scientific Database Curator Exam, Routine 11/10/2009 RUBI PENN DO V72.31 Scientific Database Curator Exam, Routine 11/10/2009 RUBI PENN DO V72.31 Scientific Database Curator Exam, Routine 11/10/2009 V72.31 Scientific Database Curator Exam, Routine 11/10/2009 V72.31 Scientific Database Curator Exam, Routine 11/10/2009 RUBI PENN DO V72.31 Scientific Database Curator Exam, Routine 11/10/2009 RUBI PENN DO V72.31 Scientific Database Curator Exam, Routine 11/10/2009 V72.31 Scientific Database Curator Exam, Routine 11/10/2009 V72.31 Scientific Database Curator Exam, Routine 11/10/2009 V72.31 Scientific Database Curator Exam, Routine 11/10/2009 V72.31 Scientific Database Curator Exam, Routine 11/10/2009 V72.31 Scientific Database Curator Exam, Routine 11/10/2009 V72.31 Scientific Database Curator Exam, Routine 11/10/2009 JOSÉ LUIS CALI APRN V72.31 Scientific Database Curator Exam, Routine 11/10/2009 RUBI PENN DO V72.31 Scientific Database Curator Exam, Routine 11/10/2009 ANGELO LIBRARY TECHNICIAN, ROMA A V72.31 Scientific Database Curator Exam, Routine 11/10/2009 ANGELO LIBRARY TECHNICIAN, ROMA A V72.31 Scientific Database Curator Exam, Routine 11/10/2009 ANGELO LIBRARY TECHNICIAN, ROMA A V72.31 Scientific Database Curator Exam, Routine 11/10/2009 ANGELO LIBRARY TECHNICIAN, ROMA A V72.31 Scientific Database Curator Exam, Routine 11/10/2009 KRIS SHOEMAKER APRN V72.31 Scientific Database Curator Exam, Routine 11/10/2009 ANGELO LIBRARY TECHNICIAN, ROMA A V72.31 Scientific Database Curator Exam, Routine 11/10/2009 ANGELO LIBRARY TECHNICIAN, ROMA A V72.31 Scientific Database Curator Exam, Routine 11/10/2009 ANGELO LIBRARY TECHNICIAN, ROMA A V72.31 Scientific Database Curator Exam, Routine 11/10/2009 TJ HOWELL MD V72.31 Scientific Database Curator Exam, Routine 01/19/2010 PENN DO, RUBI K 380.10 Infective Otitis Externa, Unspecified 01/19/2010 380.10 Infective Otitis Externa, Unspecified 01/19/2010 PENN DO, RUBI K 380.10 Infective Otitis Externa, Unspecified 01/19/2010 PENN DO, RUBI K 380.10 Infective Otitis Externa, Unspecified 01/19/2010 380.10 Infective Otitis Externa, Unspecified 01/19/2010 380.10 Infective Otitis Externa, Unspecified 01/19/2010 PENN DO, RUBI K 380.10 Infective Otitis Externa, Unspecified 01/19/2010 PENN DO, RUBI K 380.10 Infective Otitis Externa, Unspecified 01/19/2010 380.10 Infective Otitis Externa, Unspecified 01/19/2010 380.10 Infective Otitis Externa, Unspecified 01/19/2010 380.10 Infective Otitis Externa, Unspecified 01/19/2010 380.10 Infective Otitis Externa, Unspecified 01/19/2010 380.10 Infective Otitis Externa, Unspecified 01/19/2010 380.10 Infective Otitis Externa, Unspecified 01/19/2010 JOSÉ LUIS CALI APRN 380.10 Infective Otitis Externa, Unspecified 01/19/2010 PENN DO, RUBI K 380.10 Infective Otitis Externa, Unspecified 01/19/2010 ANGELO LIBRARY TECHNICIAN, ROMA A 380.10 Infective Otitis Externa, Unspecified 01/19/2010 ANGELO LIBRARY TECHNICIAN, ROMA A 380.10 Infective Otitis Externa, Unspecified 01/19/2010 ANGELO LIBRARY TECHNICIAN, ROMA A 380.10 Infective Otitis Externa, Unspecified 01/19/2010 ANGELO LIBRARY TECHNICIAN, ROMA A 380.10 Infective Otitis Externa, Unspecified 01/19/2010 KRIS SHOEMAKER APRN 380.10 Infective Otitis Externa, Unspecified 01/19/2010 ANGELO LIBRARY TECHNICIAN, ROMA A 380.10 Infective Otitis Externa, Unspecified 01/19/2010 ANGELO LIBRARY TECHNICIAN, ROMA A 380.10 Infective Otitis Externa, Unspecified 01/19/2010 ANGELO LIBRARY TECHNICIAN, ROMA A 380.10 Infective Otitis Externa, Unspecified 01/19/2010 LYNDA BURR, TJ 380.10 Infective Otitis Externa, Unspecified 04/04/2010 RUBI PENN DO K 616.10 Vaginitis Vulvovaginitis Unspecified 04/04/2010 PENN PAIGE KUA K V69.2 High-risk Sexual Behavior 04/04/2010 616.10 Vaginitis Vulvovaginitis Unspecified 04/04/2010 V69.2 High-risk Sexual Behavior 04/04/2010 PENN RUBI KU K 616.10 Vaginitis Vulvovaginitis Unspecified 04/04/2010 PAIGE PENN DOA K V69.2 High-risk Sexual Behavior 04/04/2010 RUBI PENN DO K 616.10 Vaginitis Vulvovaginitis Unspecified 04/04/2010 PAIGE PENN DOA K V69.2 High-risk Sexual Behavior 04/04/2010 616.10 Vaginitis Vulvovaginitis Unspecified 04/04/2010 V69.2 High-risk Sexual Behavior 04/04/2010 616.10 Vaginitis Vulvovaginitis Unspecified 04/04/2010 V69.2 High-risk Sexual Behavior 04/04/2010 RUBI PENN DO K 616.10 Vaginitis Vulvovaginitis Unspecified 04/04/2010 RUBI PENN DO K V69.2 High-risk Sexual Behavior 04/04/2010 RUBI PENN DO K 616.10 Vaginitis Vulvovaginitis Unspecified 04/04/2010 RUBI PENN DO K V69.2 High-risk Sexual Behavior 04/04/2010 616.10 Vaginitis Vulvovaginitis Unspecified 04/04/2010 V69.2 High-risk Sexual Behavior 04/04/2010 616.10 Vaginitis Vulvovaginitis Unspecified 04/04/2010 V69.2 High-risk Sexual Behavior 04/04/2010 616.10 Vaginitis Vulvovaginitis Unspecified 04/04/2010 V69.2 High-risk Sexual Behavior 04/04/2010 616.10 Vaginitis Vulvovaginitis Unspecified 04/04/2010 V69.2 High-risk Sexual Behavior 04/04/2010 616.10 Vaginitis Vulvovaginitis Unspecified 04/04/2010 V69.2 High-risk Sexual Behavior 04/04/2010 616.10 Vaginitis Vulvovaginitis Unspecified 04/04/2010 V69.2 High-risk Sexual Behavior 04/04/2010 VIRAJ LIBRARY TECHNICIAN, JOSÉ LUIS S 616.10 Vaginitis Vulvovaginitis Unspecified 04/04/2010 VIRAJ LIBRARY TECHNICIAN, JOSÉ LUIS S V69.2 High-risk Sexual Behavior 04/04/2010 PENN DO, RUBI K 616.10 Vaginitis Vulvovaginitis Unspecified 04/04/2010 PENN DO, RUBI K V69.2 High-risk Sexual Behavior 04/04/2010 ANGELO LIBRARY TECHNICIAN, ROMA A 616.10 Vaginitis Vulvovaginitis Unspecified 04/04/2010 ANGELO LIBRARY TECHNICIAN, ROMA A V69.2 High-risk Sexual Behavior 04/04/2010 ANGELO LIBRARY TECHNICIAN, ROMA A 616.10 Vaginitis Vulvovaginitis Unspecified 04/04/2010 ANGELO LIBRARY TECHNICIAN, ROMA A V69.2 High-risk Sexual Behavior 04/04/2010 ANGELO LIBRARY TECHNICIAN, ROMA A 616.10 Vaginitis Vulvovaginitis Unspecified 04/04/2010 ANGELO LIBRARY TECHNICIAN, ROMA A V69.2 High-risk Sexual Behavior 04/04/2010 ANGELO LIBRARY TECHNICIAN, ROMA A 616.10 Vaginitis Vulvovaginitis Unspecified 04/04/2010 ANGELO LIBRARY TECHNICIAN, ROMA A V69.2 High-risk Sexual Behavior 04/04/2010 KRIS SHOEMAKER APRN 616.10 Vaginitis Vulvovaginitis Unspecified 04/04/2010 KRIS SHOEMAKER APRN V69.2 High-risk Sexual Behavior 04/04/2010 ANGELO LIBRARY TECHNICIAN, ROMA A 616.10 Vaginitis Vulvovaginitis Unspecified 04/04/2010 ANGELO LIBRARY TECHNICIAN, ROMA A V69.2 High-risk Sexual Behavior 04/04/2010 ANGELO LIBRARY TECHNICIAN, ROMA A 616.10 Vaginitis Vulvovaginitis Unspecified 04/04/2010 ANGELO LIBRARY TECHNICIAN, ROMA A V69.2 High-risk Sexual Behavior 04/04/2010 ANGELO LIBRARY TECHNICIAN, ROMA A 616.10 Vaginitis Vulvovaginitis Unspecified 04/04/2010 ANGELO LIBRARY TECHNICIAN, ROMA A V69.2 High-risk Sexual Behavior 04/04/2010 TJ HOWELL MD 616.10 Vaginitis Vulvovaginitis Unspecified 04/04/2010 TJ HOWELL MD V69.2 High-risk Sexual Behavior 07/27/2010 RUBI PENN DO K 379.93 Redness Or Discharge Of Eye 07/27/2010 379.93 Redness Or Discharge Of Eye 07/27/2010 RUBI PENN DO K 379.93 Redness Or Discharge Of Eye 07/27/2010 PAIGE PENN DOA K 379.93 Redness Or Discharge Of Eye 07/27/2010 379.93 Redness Or Discharge Of Eye 07/27/2010 379.93 Redness Or Discharge Of Eye 07/27/2010 PAIGE PENN DOA K 379.93 Redness Or Discharge Of Eye 07/27/2010 PENN PAIGE KUA K 379.93 Redness Or Discharge Of Eye 07/27/2010 379.93 Redness Or Discharge Of Eye 07/27/2010 379.93 Redness Or Discharge Of Eye 07/27/2010 379.93 Redness Or Discharge Of Eye 07/27/2010 379.93 Redness Or Discharge Of Eye 07/27/2010 379.93 Redness Or Discharge Of Eye 07/27/2010 379.93 Redness Or Discharge Of Eye 07/27/2010 JOSÉ LUIS CALI APRN 379.93 Redness Or Discharge Of Eye 07/27/2010 RUBI PENN DO K 379.93 Redness Or Discharge Of Eye 07/27/2010 ANGELO LIBRARY TECHNICIAN, ROMA A 379.93 Redness Or Discharge Of Eye 07/27/2010 ANGELO ANAYAN, ROMA A 379.93 Redness Or Discharge Of Eye 07/27/2010 ANGELO LIBRARY TECHNICIAN, ROMA A 379.93 Redness Or Discharge Of Eye 07/27/2010 ANGELO ANAYAN, ROMA A 379.93 Redness Or Discharge Of Eye 07/27/2010 KRIS SHOEMAKER APRN 379.93 Redness Or Discharge Of Eye 07/27/2010 ANGELO LIBRARY TECHNICIAN, ROMA A 379.93 Redness Or Discharge Of Eye 07/27/2010 ANGELO ANAYAN, ROMA A 379.93 Redness Or Discharge Of Eye 07/27/2010 ANGELO LIBRARY TECHNICIAN, ROMA A 379.93 Redness Or Discharge Of Eye 07/27/2010 TJ HOWELL MD 379.93 Redness Or Discharge Of Eye 10/25/2010 PENN DO, RUBI K 919.5 Insect Bite Infected 10/25/2010 919.5 Insect Bite Infected 10/25/2010 PENN DO, RUBI K 919.5 Insect Bite Infected 10/25/2010 PENN DO, RUBI K 919.5 Insect Bite Infected 10/25/2010 919.5 Insect Bite Infected 10/25/2010 919.5 Insect Bite Infected 10/25/2010 PENN DO, RUBI K 919.5 Insect Bite Infected 10/25/2010 PENN DO, RUBI K 919.5 Insect Bite Infected 10/25/2010 919.5 Insect Bite Infected 10/25/2010 919.5 Insect Bite Infected 10/25/2010 919.5 Insect Bite Infected 10/25/2010 919.5 Insect Bite Infected 10/25/2010 919.5 Insect Bite Infected 10/25/2010 919.5 Insect Bite Infected 10/25/2010 JOSÉ LUIS CALI APRN 919.5 Insect Bite Infected 10/25/2010 PENN DO, RUBI K 919.5 Insect Bite Infected 10/25/2010 ANGELO LIBRARY TECHNICIAN, ROMA A 919.5 Insect Bite Infected 10/25/2010 ANGELO LIBRARY TECHNICIAN, ROMA A 919.5 Insect Bite Infected 10/25/2010 ANGELO LIBRARY TECHNICIAN, ROMA A 919.5 Insect Bite Infected 10/25/2010 ANGELO CHOWDHURY, ROMA A 919.5 Insect Bite Infected 10/25/2010 KRIS SHOEMAKER APRN 919.5 Insect Bite Infected 10/25/2010 ANGELO LIBRARY TECHNICIAN, ROMA A 919.5 Insect Bite Infected 10/25/2010 ANGELO ANAYAN, ROMA A 919.5 Insect Bite Infected 10/25/2010 ANGELO LIBRARY TECHNICIAN, ROMA A 919.5 Insect Bite Infected 10/25/2010 TJ HOWELL MD 919.5 Insect Bite Infected 12/26/2010 PENN DO, RUBI K 625.0 Dyspareunia 12/26/2010 625.0 Dyspareunia 12/26/2010 PENN DO, RUBI K 625.0 Dyspareunia 12/26/2010 PENN DO, RUBI K 625.0 Dyspareunia 12/26/2010 625.0 Dyspareunia 12/26/2010 625.0 Dyspareunia 12/26/2010 RUBI PENN DO K 625.0 Dyspareunia 12/26/2010 PENN DORUBI K 625.0 Dyspareunia 12/26/2010 625.0 Dyspareunia 12/26/2010 625.0 Dyspareunia 12/26/2010 625.0 Dyspareunia 12/26/2010 625.0 Dyspareunia 12/26/2010 625.0 Dyspareunia 12/26/2010 625.0 Dyspareunia 12/26/2010 VIRAJ LIBRARY TECHNICIAN, JOSÉ LUIS Quinteros 625.0 Dyspareunia 12/26/2010 RUBI PENN DO K 625.0 Dyspareunia 12/26/2010 ANGELO LIBRARY TECHNICIAN, ROMA A 625.0 Dyspareunia 12/26/2010 ANGELO LIBRARY TECHNICIAN, ROMA A 625.0 Dyspareunia 12/26/2010 ANGELO LIBRARY TECHNICIAN, ROMA A 625.0 Dyspareunia 12/26/2010 ANGELO LIBRARY TECHNICIAN, ROMA A 625.0 Dyspareunia 12/26/2010 SAHARA LIBRARY TECHNICIANKRIS Dutton 625.0 Dyspareunia 12/26/2010 ANGELO LIBRARY TECHNICIAN, ROMA A 625.0 Dyspareunia 12/26/2010 ANGELO LIBRARY TECHNICIAN, ROMA A 625.0 Dyspareunia 12/26/2010 ANGELO LIBRARY TECHNICIAN, ROMA A 625.0 Dyspareunia 12/26/2010 TJ HOWELL MD 625.0 Dyspareunia 03/22/2011 RUBI PENN DO 595.0 Acute Cystitis 03/22/2011 595.0 Acute Cystitis 03/22/2011 RUBI PENN DO 595.0 Acute Cystitis 03/22/2011 RUBI PENN DO 595.0 Acute Cystitis 03/22/2011 595.0 Acute Cystitis 03/22/2011 595.0 Acute Cystitis 03/22/2011 RUBI PENN DO K 595.0 Acute Cystitis 03/22/2011 RUBI PENN DO K 595.0 Acute Cystitis 03/22/2011 595.0 Acute Cystitis 03/22/2011 595.0 Acute Cystitis 03/22/2011 595.0 Acute Cystitis 03/22/2011 595.0 Acute Cystitis 03/22/2011 595.0 Acute Cystitis 03/22/2011 595.0 Acute Cystitis 03/22/2011 VIRAJ LIBRARY TECHNICIAN, JOSÉ LUIS S 595.0 Acute Cystitis 03/22/2011 RUBI PENN DO 595.0 Acute Cystitis 03/22/2011 ANGELO LIBRARY TECHNICIAN, ROMA A 595.0 Acute Cystitis 03/22/2011 ANGELO LIBRARY TECHNICIAN, ROMA A 595.0 Acute Cystitis 03/22/2011 ANGELO LIBRARY TECHNICIAN, ROMA A 595.0 Acute Cystitis 03/22/2011 ANGELO LIBRARY TECHNICIAN, ROMA A 595.0 Acute Cystitis 03/22/2011 SAHARA LIBRARY TECHNICIAN, KRIS Reyes 595.0 Acute Cystitis 03/22/2011 ANGELO LIBRARY TECHNICIAN, ROMA A 595.0 Acute Cystitis 03/22/2011 ANGELO LIBRARY TECHNICIAN, ROMA A 595.0 Acute Cystitis 03/22/2011 ANGELO LIBRARY TECHNICIAN, ROMA A 595.0 Acute Cystitis 03/22/2011 TJ HOWELL MD 595.0 Acute Cystitis 08/28/2011 RUBI PENN DO 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 08/28/2011 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 08/28/2011 RUBI PENN DO 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 08/28/2011 RUBI PENN DO 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 08/28/2011 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 08/28/2011 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 08/28/2011 RUBI PENN DO 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 08/28/2011 RUBI PENN DO 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 08/28/2011 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 08/28/2011 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 08/28/2011 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 08/28/2011 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 08/28/2011 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 08/28/2011 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 08/28/2011 JOSÉ LUIS CALI APRN 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 08/28/2011 RBUI PENN DO 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 08/28/2011 ANGELO LIBRARY TECHNICIAN, ROMA A 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 08/28/2011 ANGELO LIBRARY TECHNICIAN, ROMA A 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 08/28/2011 ANGELO LIBRARY TECHNICIAN, ROMA A 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 08/28/2011 ANGELO LIBRARY TECHNICIAN, ROMA A 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 08/28/2011 KRIS SHOEMAKER APRN 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 08/28/2011 ANGELO LIBRARY TECHNICIAN, ROMA A 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 08/28/2011 ANGELO LIBRARY TECHNICIAN, ROMA A 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 08/28/2011 ANGELO LIBRARY TECHNICIAN, ROMA A 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 08/28/2011 TJ HOWELL MD 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 09/13/2011 RUBI PENN DO 719.43 Pain In Joint Involving Forearm 09/13/2011 719.43 Pain In Joint Involving Forearm 09/13/2011 RUBI PENN DO 719.43 Pain In Joint Involving Forearm 09/13/2011 RUBI PENN DO 719.43 Pain In Joint Involving Forearm 09/13/2011 719.43 Pain In Joint Involving Forearm 09/13/2011 719.43 Pain In Joint Involving Forearm 09/13/2011 RUBI PENN DO 719.43 Pain In Joint Involving Forearm 09/13/2011 RUBI PENN DO 719.43 Pain In Joint Involving Forearm 09/13/2011 719.43 Pain In Joint Involving Forearm 09/13/2011 719.43 Pain In Joint Involving Forearm 09/13/2011 719.43 Pain In Joint Involving Forearm 09/13/2011 719.43 Pain In Joint Involving Forearm 09/13/2011 719.43 Pain In Joint Involving Forearm 09/13/2011 719.43 Pain In Joint Involving Forearm 09/13/2011 JOSÉ LUIS CALI APRN 719.43 Pain In Joint Involving Forearm 09/13/2011 RUBI PENN DO 719.43 Pain In Joint Involving Forearm 09/13/2011 YELENA STEPHENS APRNIDI A 719.43 Pain In Joint Involving Forearm 09/13/2011 YELENA STEPHENS APRNIDI A 719.43 Pain In Joint Involving Forearm 09/13/2011 ANGELO CHOWDHURY ROMA A 719.43 Pain In Joint Involving Forearm 09/13/2011 YELENA STEPHENS APRNIDI A 719.43 Pain In Joint Involving Forearm 09/13/2011 KRIS SHOEMAKER APRN 719.43 Pain In Joint Involving Forearm 09/13/2011 YELENA STEPHENS APRNIDI A 719.43 Pain In Joint Involving Forearm 09/13/2011 YELENA STEPHENS APRNIDI A 719.43 Pain In Joint Involving Forearm 09/13/2011 ANGELO CHOWDHURY ROMA A 719.43 Pain In Joint Involving Forearm 09/13/2011 TJ HOWELL MD 719.43 Pain In Joint Involving Forearm 02/05/2012 ISAMAR KU RUBI K 599.0 Urinary Tract Infection Site Not Specified 02/05/2012 ISAMAR KU RUBI K 995.3 Allergy Unspecified Not Elsewhere Classified 02/05/2012 599.0 Urinary Tract Infection Site Not Specified 02/05/2012 995.3 Allergy Unspecified Not Elsewhere Classified 02/05/2012 ISAMAR KU RUBI K 599.0 Urinary Tract Infection Site Not Specified 02/05/2012 PENN DO RUBI K 995.3 Allergy Unspecified Not Elsewhere Classified 02/05/2012 PENN DO RUBI K 599.0 Urinary Tract Infection Site Not Specified 02/05/2012 ISAMAR KU RUBI K 995.3 Allergy Unspecified Not Elsewhere Classified 02/05/2012 599.0 Urinary Tract Infection Site Not Specified 02/05/2012 995.3 Allergy Unspecified Not Elsewhere Classified 02/05/2012 599.0 Urinary Tract Infection Site Not Specified 02/05/2012 995.3 Allergy Unspecified Not Elsewhere Classified 02/05/2012 PENN DO, RUBI K 599.0 Urinary Tract Infection Site Not Specified 02/05/2012 PENN DO, RUBI K 995.3 Allergy Unspecified Not Elsewhere Classified 02/05/2012 PENN DO, RUBI K 599.0 Urinary Tract Infection Site Not Specified 02/05/2012 PENN DO, RUBI K 995.3 Allergy Unspecified Not Elsewhere Classified 02/05/2012 599.0 Urinary Tract Infection Site Not Specified 02/05/2012 995.3 Allergy Unspecified Not Elsewhere Classified 02/05/2012 599.0 Urinary Tract Infection Site Not Specified 02/05/2012 995.3 Allergy Unspecified Not Elsewhere Classified 02/05/2012 599.0 Urinary Tract Infection Site Not Specified 02/05/2012 995.3 Allergy Unspecified Not Elsewhere Classified 02/05/2012 599.0 Urinary Tract Infection Site Not Specified 02/05/2012 995.3 Allergy Unspecified Not Elsewhere Classified 02/05/2012 599.0 Urinary Tract Infection Site Not Specified 02/05/2012 995.3 Allergy Unspecified Not Elsewhere Classified 02/05/2012 599.0 Urinary Tract Infection Site Not Specified 02/05/2012 995.3 Allergy Unspecified Not Elsewhere Classified 02/05/2012 SEAN CALI APRNNDA S 599.0 Urinary Tract Infection Site Not Specified 02/05/2012 SEAN CALI APRNNDA S 995.3 Allergy Unspecified Not Elsewhere Classified 02/05/2012 PENN DO RUBI K 599.0 Urinary Tract Infection Site Not Specified 02/05/2012 PENN DO RUBI K 995.3 Allergy Unspecified Not Elsewhere Classified 02/05/2012 ANGELO LIBRARY TECHNICIAN, ORMA A 599.0 Urinary Tract Infection Site Not Specified 02/05/2012 ANGELO LIBRARY TECHNICIAN, ROMA A 995.3 Allergy Unspecified Not Elsewhere Classified 02/05/2012 ANGELO LIBRARY TECHNICIAN, ROMA A 599.0 Urinary Tract Infection Site Not Specified 02/05/2012 ANGELO LIBRARY TECHNICIAN, ROMA A 995.3 Allergy Unspecified Not Elsewhere Classified 02/05/2012 ANGELO LIBRARY TECHNICIAN, ROMA A 599.0 Urinary Tract Infection Site Not Specified 02/05/2012 ANGELO LIBRARY TECHNICIAN, ROMA A 995.3 Allergy Unspecified Not Elsewhere Classified 02/05/2012 ANGELO CHOWDHURY, ROMA A 599.0 Urinary Tract Infection Site Not Specified 02/05/2012 ANGELO CHOWDHURY, ROMA A 995.3 Allergy Unspecified Not Elsewhere Classified 02/05/2012 SAHARA ANAYAMarija KRIS Reyes 599.0 Urinary Tract Infection Site Not Specified 02/05/2012 SAHARA ANAYAMarija KRIS Reyes 995.3 Allergy Unspecified Not Elsewhere Classified 02/05/2012 ANGELO CHOWDHURY, ROMA A 599.0 Urinary Tract Infection Site Not Specified 02/05/2012 ANGELO CHOWDHURY, ROMA A 995.3 Allergy Unspecified Not Elsewhere Classified 02/05/2012 ANGELO LIBRARY TECHNICIAN, ROMA A 599.0 Urinary Tract Infection Site Not Specified 02/05/2012 ANGELO CHOWDHURY, ROMA A 995.3 Allergy Unspecified Not Elsewhere Classified 02/05/2012 ANGELO CHOWDHURY, ROMA A 599.0 Urinary Tract Infection Site Not Specified 02/05/2012 ANGELO ANAYAMarija ROMA A 995.3 Allergy Unspecified Not Elsewhere Classified 02/05/2012 TJ HOWELL MD 599.0 Urinary Tract Infection Site Not Specified 02/05/2012 TJ HOWELL MD 995.3 Allergy Unspecified Not Elsewhere Classified 02/10/2012 Ot 782.1 03/12/2012 RUBI PENN DO V72.42 Test Positive Result 03/12/2012 V72.42 Test Positive Result 03/12/2012 PENN RUBI KU V72.42 Test Positive Result 03/12/2012 RUBI PENN DO V72.42 Test Positive Result 03/12/2012 V72.42 Test Positive Result 03/12/2012 V72.42 Test Positive Result 03/12/2012 PENN RUBI KU V72.42 Test Positive Result 03/12/2012 PENN RUBI KU V72.42 Test Positive Result 03/12/2012 V72.42 Test Positive Result 03/12/2012 V72.42 Test Positive Result 03/12/2012 V72.42 Test Positive Result 03/12/2012 V72.42 Test Positive Result 03/12/2012 V72.42 Test Positive Result 03/12/2012 V72.42 Test Positive Result 03/12/2012 VIRAJ CHOWDHURY, JOSÉ LUIS S V72.42 Test Positive Result 03/12/2012 PENN DO, RUBI K V72.42 Test Positive Result 03/12/2012 ANGELO LIBRARY TECHNICIAN, ROMA A V72.42 Test Positive Result 03/12/2012 ANGELO LIBRARY TECHNICIAN, ROMA A V72.42 Test Positive Result 03/12/2012 ANGELO LIBRARY TECHNICIAN, ROMA A V72.42 Test Positive Result 03/12/2012 ANGELO LIBRARY TECHNICIAN, ROMA A V72.42 Test Positive Result 03/12/2012 SAHARA LIBRARY TECHNICIAN, KRIS Eric V72.42 Test Positive Result 03/12/2012 ANGELO LIBRARY TECHNICIAN, ROMA A V72.42 Test Positive Result 03/12/2012 ANGELO LIBRARY TECHNICIAN, ROMA A V72.42 Test Positive Result 03/12/2012 ANGELO LIBRARY TECHNICIAN, ROMA A V72.42 Test Positive Result 03/12/2012 TJ HOWELL MD V72.42 Test Positive Result 03/26/2012 PENN DO, RUBI K 654.20 PREVIOUS 03/26/2012 PENN DO, RUBI K V04.81 FLU SHOT 03/26/2012 PENN DO, RUBI K V22.1 , NORMAL OTHER 03/26/2012 654.20 PREVIOUS 03/26/2012 V04.81 FLU SHOT 03/26/2012 V22.1 , NORMAL OTHER 03/26/2012 PENN DO, RUBI K 654.20 PREVIOUS 03/26/2012 PENN DO, RUBI K V04.81 FLU SHOT 03/26/2012 PENN DO, RUBI K V22.1 , NORMAL OTHER 03/26/2012 PENN DO, RUBI K 654.20 PREVIOUS 03/26/2012 PENN DO, RUBI K V04.81 FLU SHOT 03/26/2012 PENN DO, RUBI K V22.1 , NORMAL OTHER 03/26/2012 654.20 PREVIOUS 03/26/2012 V04.81 FLU SHOT 03/26/2012 V22.1 , NORMAL OTHER 03/26/2012 654.20 PREVIOUS 03/26/2012 V04.81 FLU SHOT 03/26/2012 V22.1 , NORMAL OTHER 03/26/2012 PENN DO, RUBI K 654.20 PREVIOUS 03/26/2012 PENN DO, RUBI K V04.81 FLU SHOT 03/26/2012 PENN DO, RUBI K V22.1 , NORMAL OTHER 03/26/2012 PENN , RUBI K 654.20 PREVIOUS 03/26/2012 PENN PAIGE KUA K V04.81 FLU SHOT 03/26/2012 PENN DO, RUBI K V22.1 , NORMAL OTHER 03/26/2012 654.20 PREVIOUS 03/26/2012 V04.81 FLU SHOT 03/26/2012 V22.1 , NORMAL OTHER 03/26/2012 654.20 PREVIOUS 03/26/2012 V04.81 FLU SHOT 03/26/2012 V22.1 , NORMAL OTHER 03/26/2012 654.20 PREVIOUS 03/26/2012 V04.81 FLU SHOT 03/26/2012 V22.1 , NORMAL OTHER 03/26/2012 654.20 PREVIOUS 03/26/2012 V04.81 FLU SHOT 03/26/2012 V22.1 , NORMAL OTHER 03/26/2012 654.20 PREVIOUS 03/26/2012 V04.81 FLU SHOT 03/26/2012 V22.1 , NORMAL OTHER 03/26/2012 654.20 PREVIOUS 03/26/2012 V04.81 FLU SHOT 03/26/2012 V22.1 , NORMAL OTHER 03/26/2012 VIRAJ LIBRARY TECHNICIAN, JOSÉ LUIS S 654.20 PREVIOUS 03/26/2012 VIRAJ LIBRARY TECHNICIAN, JOSÉ LUIS S V04.81 FLU SHOT 03/26/2012 VIRAJ LIBRARY TECHNICIAN, JOSÉ LUIS S V22.1 , NORMAL OTHER 03/26/2012 PENN DO, RUBI K 654.20 PREVIOUS 03/26/2012 PENN DO, RUBI K V04.81 FLU SHOT 03/26/2012 PENN DO, RUBI K V22.1 , NORMAL OTHER 03/26/2012 ANGELO LIBRARY TECHNICIAN, ROMA A 654.20 PREVIOUS 03/26/2012 ANGELO LIBRARY TECHNICIAN, ROMA A V04.81 FLU SHOT 03/26/2012 ANGELO CHOWDHURY, ROMA A V22.1 , NORMAL OTHER 03/26/2012 ANGELO ANAYAN, ROMA A 654.20 PREVIOUS 03/26/2012 ANGELO ANAYAN, ROMA A V04.81 FLU SHOT 03/26/2012 ANGELO ANAYAN, ROMA A V22.1 , NORMAL OTHER 03/26/2012 ANGELO ANAYAN, ROMA A 654.20 PREVIOUS 03/26/2012 ANGELO ANAYAN, ROMA A V04.81 FLU SHOT 03/26/2012 ANGELO ANAYAN, ROMA A V22.1 , NORMAL OTHER 03/26/2012 ANGELO ANAYAN, ROMA A 654.20 PREVIOUS 03/26/2012 ANGELO CHOWDHURY, ROMA A V04.81 FLU SHOT 03/26/2012 ANGELO CHOWDHURY, ROMA A V22.1 , NORMAL OTHER 03/26/2012 KRIS SHOEMAKER APRN 654.20 PREVIOUS 03/26/2012 KRIS SHOEMAKER APRN V04.81 FLU SHOT 03/26/2012 KRIS SHOEMAKER APRN V22.1 , NORMAL OTHER 03/26/2012 ANGELO CHOWDHURY, ROMA A 654.20 PREVIOUS 03/26/2012 ANGELO CHOWDHURY, ROMA A V04.81 FLU SHOT 03/26/2012 ANGELO CHOWDHURY, ROMA A V22.1 , NORMAL OTHER 03/26/2012 ANGELO ANAYAN, ROMA A 654.20 PREVIOUS 03/26/2012 ANGELO ANAYAN, ROMA A V04.81 FLU SHOT 03/26/2012 ANGELO ANAYAN, ROMA A V22.1 , NORMAL OTHER 03/26/2012 ANGELO ANAYAN, ROMA A 654.20 PREVIOUS 03/26/2012 ANGELO ANAYAN, ROMA A V04.81 FLU SHOT 03/26/2012 ANGELO ANAYAN, ROMA A V22.1 , NORMAL OTHER 03/26/2012 TJ HOWELL MD 654.20 PREVIOUS 03/26/2012 TJ HOWELL MD V04.81 FLU SHOT 03/26/2012 LYNDA BURR, TJ V22.1 , NORMAL OTHER 04/23/2012 RUBI PENN DO V72.31 CREDIT COUNSELOR EXAM, ROUTINE 04/23/2012 RUBI PENN DO V74.5 STD SCREEN 04/23/2012 V72.31 Scientific Database Curator Exam, Routine 04/23/2012 V74.5 Std Screen 04/23/2012 PENN RUBI KU V72.31 Scientific Database Curator Exam, Routine 04/23/2012 RUBI PENN DO V74.5 Std Screen 04/23/2012 PENN RUBI KU V72.31 Scientific Database Curator Exam, Routine 04/23/2012 PENN RUBI KU V74.5 Std Screen 04/23/2012 V72.31 Scientific Database Curator Exam, Routine 04/23/2012 V74.5 Std Screen 04/23/2012 V72.31 Scientific Database Curator Exam, Routine 04/23/2012 V74.5 Std Screen 04/23/2012 PENN RUBI KU V72.31 Scientific Database Curator Exam, Routine 04/23/2012 RUBI PENN DO V74.5 Std Screen 04/23/2012 PENN RUBI KU V72.31 Scientific Database Curator Exam, Routine 04/23/2012 PENN RUBI KU V74.5 Std Screen 04/23/2012 V72.31 Scientific Database Curator Exam, Routine 04/23/2012 V74.5 Std Screen 04/23/2012 V72.31 Scientific Database Curator Exam, Routine 04/23/2012 V74.5 Std Screen 04/23/2012 V72.31 Scientific Database Curator Exam, Routine 04/23/2012 V74.5 Std Screen 04/23/2012 V72.31 Scientific Database Curator Exam, Routine 04/23/2012 V74.5 Std Screen 04/23/2012 V72.31 Scientific Database Curator Exam, Routine 04/23/2012 V74.5 Std Screen 04/23/2012 V72.31 Scientific Database Curator Exam, Routine 04/23/2012 V74.5 Std Screen 04/23/2012 JOSÉ LUIS CALI APRN V72.31 Scientific Database Curator Exam, Routine 04/23/2012 JOSÉ LUIS CALI APRN V74.5 Std Screen 04/23/2012 PENN RUBI KU V72.31 Scientific Database Curator Exam, Routine 04/23/2012 PENN RUBI KU V74.5 Std Screen 04/23/2012 ANGELO LIBRARY TECHNICIAN, ROMA A V72.31 Scientific Database Curator Exam, Routine 04/23/2012 ANGELO LIBRARY TECHNICIAN, ROMA A V74.5 Std Screen 04/23/2012 ANGELO LIBRARY TECHNICIAN, ROMA A V72.31 Scientific Database Curator Exam, Routine 04/23/2012 ANGELO LIBRARY TECHNICIAN, ROMA A V74.5 Std Screen 04/23/2012 ANGELO LIBRARY TECHNICIAN, ROMA A V72.31 Scientific Database Curator Exam, Routine 04/23/2012 ANGELO LIBRARY TECHNICIAN, ROMA A V74.5 Std Screen 04/23/2012 ANGELO LIBRARY TECHNICIAN, ROMA A V72.31 Scientific Database Curator Exam, Routine 04/23/2012 ANGELO LIBRARY TECHNICIAN, ROMA A V74.5 Std Screen 04/23/2012 KRIS SHOEMAKER APRN V72.31 Scientific Database Curator Exam, Routine 04/23/2012 KRIS SHOEMAKER APRN V74.5 Std Screen 04/23/2012 ANGELO LIBRARY TECHNICIAN, ROMA A V72.31 Scientific Database Curator Exam, Routine 04/23/2012 ANGELO LIBRARY TECHNICIAN, ROMA A V74.5 Std Screen 04/23/2012 ANGELO LIBRARY TECHNICIAN, ROMA A V72.31 Scientific Database Curator Exam, Routine 04/23/2012 ANGELO LIBRARY TECHNICIAN, ROMA A V74.5 Std Screen 04/23/2012 ANGELO LIBRARY TECHNICIAN, ROMA A V72.31 Scientific Database Curator Exam, Routine 04/23/2012 ANGELO LIBRARY TECHNICIAN, ROMA A V74.5 Std Screen 04/23/2012 TJ HOWELL MD V72.31 Scientific Database Curator Exam, Routine 04/23/2012 TJ HOWELL MD V74.5 Std Screen 05/26/2012 Ot 646.83 05/26/2012 Ot 789.03 05/27/2012 RUBI PENN DO V04.3 RUBELLA NON-IMMUNE - NEED FOR VACCINATION 05/27/2012 RUBI PENN DO V04.3 RUBELLA NON-IMMUNE - NEED FOR VACCINATION 05/27/2012 V04.3 RUBELLA NON-IMMUNE - NEED FOR VACCINATION 05/27/2012 V04.3 RUBELLA NON-IMMUNE - NEED FOR VACCINATION 05/27/2012 RUBI PENN DO V04.3 RUBELLA NON-IMMUNE - NEED FOR VACCINATION 05/27/2012 RUBI PENN DO V04.3 RUBELLA NON-IMMUNE - NEED FOR VACCINATION 05/27/2012 V04.3 RUBELLA NON-IMMUNE - NEED FOR VACCINATION 05/27/2012 V04.3 RUBELLA NON-IMMUNE - NEED FOR VACCINATION 05/27/2012 V04.3 RUBELLA NON-IMMUNE - NEED FOR VACCINATION 05/27/2012 V04.3 RUBELLA NON-IMMUNE - NEED FOR VACCINATION 05/27/2012 V04.3 RUBELLA NON-IMMUNE - NEED FOR VACCINATION 05/27/2012 V04.3 RUBELLA NON-IMMUNE - NEED FOR VACCINATION 05/27/2012 JOSÉ LUIS CALI APRN V04.3 RUBELLA NON-IMMUNE - NEED FOR VACCINATION 05/27/2012 RUBI PENN DO V04.3 RUBELLA NON-IMMUNE - NEED FOR VACCINATION 05/27/2012 ROMA STEPHENS APRN A V04.3 RUBELLA NON-IMMUNE - NEED FOR VACCINATION 05/27/2012 ROMA STEPHENS APRN A V04.3 RUBELLA NON-IMMUNE - NEED FOR VACCINATION 05/27/2012 ROMA STEPHENS APRN A V04.3 RUBELLA NON-IMMUNE - NEED FOR VACCINATION 05/27/2012 ROMA STEPHENS APRN A V04.3 RUBELLA NON-IMMUNE - NEED FOR VACCINATION 05/27/2012 KRIS SHOEMAKER APRN V04.3 RUBELLA NON-IMMUNE - NEED FOR VACCINATION 05/27/2012 ROMA STEPHENS APRN A V04.3 RUBELLA NON-IMMUNE - NEED FOR VACCINATION 05/27/2012 ROMA STEPHENS APRN A V04.3 RUBELLA NON-IMMUNE - NEED FOR VACCINATION 05/27/2012 ROMA STEPHENS APRN A V04.3 RUBELLA NON-IMMUNE - NEED FOR VACCINATION 05/27/2012 TJ HOWELL MD V04.3 RUBELLA NON-IMMUNE - NEED FOR VACCINATION 05/28/2012 Ot 214.1 05/28/2012 Ot 540.9 05/28/2012 Ot 648.93 06/03/2012 RUBI PENN DO 641.90 COMPL OF - BLEEDING 06/03/2012 RUBI PENN DO V45.89 POSTSURGICAL STATUS 06/03/2012 641.90 Compl Of - Bleeding 06/03/2012 V45.89 POSTSURGICAL STATUS 06/03/2012 641.90 Compl Of - Bleeding 06/03/2012 V45.89 POSTSURGICAL STATUS 06/03/2012 PENN RUBI KU K 641.90 Compl Of - Bleeding 06/03/2012 ISAMAR KURUBI K V45.89 POSTSURGICAL STATUS 06/03/2012 ISAMAR KURUBI K 641.90 Compl Of - Bleeding 06/03/2012 ISAMAR KUPAIGEA K V45.89 POSTSURGICAL STATUS 06/03/2012 641.90 Compl Of - Bleeding 06/03/2012 V45.89 POSTSURGICAL STATUS 06/03/2012 641.90 Compl Of - Bleeding 06/03/2012 V45.89 POSTSURGICAL STATUS 06/03/2012 641.90 Compl Of - Bleeding 06/03/2012 V45.89 POSTSURGICAL STATUS 06/03/2012 641.90 Compl Of - Bleeding 06/03/2012 V45.89 POSTSURGICAL STATUS 06/03/2012 641.90 Compl Of - Bleeding 06/03/2012 V45.89 POSTSURGICAL STATUS 06/03/2012 641.90 Compl Of - Bleeding 06/03/2012 V45.89 POSTSURGICAL STATUS 06/03/2012 JOSÉ LUIS CALI APRN S 641.90 Compl Of - Bleeding 06/03/2012 JOSÉ LUIS CALI APRN S V45.89 POSTSURGICAL STATUS 06/03/2012 PENN RUBI KU K 641.90 Compl Of - Bleeding 06/03/2012 ISAMAR KURUBI K V45.89 POSTSURGICAL STATUS 06/03/2012 ROMA STEPHENS APRN A 641.90 Compl Of - Bleeding 06/03/2012 YELENA STEPHENS APRNIDI A V45.89 POSTSURGICAL STATUS 06/03/2012 YELENA STEPHENS APRNIDI A 641.90 Compl Of - Bleeding 06/03/2012 YELENA STEPHENS APRNIDI A V45.89 POSTSURGICAL STATUS 06/03/2012 YELENA STEPHENS APRNIDI A 641.90 Compl Of - Bleeding 06/03/2012 YELENA STEPHENS APRNIDI A V45.89 POSTSURGICAL STATUS 06/03/2012 ROMA STEPHENS APRN A 641.90 Compl Of - Bleeding 06/03/2012 ROMA STEPHENS APRN A V45.89 POSTSURGICAL STATUS 06/03/2012 KRIS SHOEMAKER APRN 641.90 Compl Of - Bleeding 06/03/2012 KRIS SHOEMAKER APRN V45.89 POSTSURGICAL STATUS 06/03/2012 ROMA STEPHENS APRN A 641.90 Compl Of - Bleeding 06/03/2012 ROMA STEPHENS APRN A V45.89 POSTSURGICAL STATUS 06/03/2012 ROMA STEPHENS APRN A 641.90 Compl Of - Bleeding 06/03/2012 ROMA STEPHENS APRN A V45.89 POSTSURGICAL STATUS 06/03/2012 ROMA STEPHENS APRN A 641.90 Compl Of - Bleeding 06/03/2012 ROMA STEPHENS APRN A V45.89 POSTSURGICAL STATUS 06/03/2012 TJ HOWELL MD 641.90 Compl Of - Bleeding 06/03/2012 TJ HOWELL MD V45.89 POSTSURGICAL STATUS 07/15/2012 381.4 OTITIS MEDIA NONSUPPURATIVE SEROUS 07/15/2012 RUBI PENN DO 381.4 Otitis Media Nonsuppurative Serous 07/15/2012 RUBI PENN DO 381.4 Otitis Media Nonsuppurative Serous 07/15/2012 381.4 Otitis Media Nonsuppurative Serous 07/15/2012 381.4 Otitis Media Nonsuppurative Serous 07/15/2012 381.4 Otitis Media Nonsuppurative Serous 07/15/2012 381.4 Otitis Media Nonsuppurative Serous 07/15/2012 381.4 Otitis Media Nonsuppurative Serous 07/15/2012 381.4 Otitis Media Nonsuppurative Serous 07/15/2012 JOSÉ LUIS CALI APRN 381.4 Otitis Media Nonsuppurative Serous 07/15/2012 RUBI PENN DO 381.4 Otitis Media Nonsuppurative Serous 07/15/2012 ROMA STEPHENS APRN A 381.4 Otitis Media Nonsuppurative Serous 07/15/2012 ROMA STEPHENS APRN A 381.4 Otitis Media Nonsuppurative Serous 07/15/2012 ROMA STEPHENS APRN A 381.4 Otitis Media Nonsuppurative Serous 07/15/2012 ANGELO LIBRARY TECHNICIAN, ROMA A 381.4 Otitis Media Nonsuppurative Serous 07/15/2012 KRIS SHOEMAKER APRN 381.4 Otitis Media Nonsuppurative Serous 07/15/2012 ANGELO ANAYAN, ROMA A 381.4 Otitis Media Nonsuppurative Serous 07/15/2012 ANGELO ANAYAN, ROMA A 381.4 Otitis Media Nonsuppurative Serous 07/15/2012 ANGELO LIBRARY TECHNICIAN, ROMA A 381.4 Otitis Media Nonsuppurative Serous 07/15/2012 LYNDA BURR, TJ 381.4 Otitis Media Nonsuppurative Serous 08/06/2012 RUBI PENN DO V06.1 TDAP DX 08/06/2012 RUBI PENN DO V77.1 DIABETES SCREENING 08/06/2012 RUBI PENN DO V78.0 ANEMIA SCREENING 08/06/2012 RUBI PENN DO V06.1 TDAP DX 08/06/2012 RUBI PENN DO V77.1 DIABETES SCREENING 08/06/2012 RUBI PENN DO V78.0 ANEMIA SCREENING 08/06/2012 V06.1 TDAP DX 08/06/2012 V77.1 DIABETES SCREENING 08/06/2012 V78.0 ANEMIA SCREENING 08/06/2012 V06.1 TDAP DX 08/06/2012 V77.1 Diabetes Screening 08/06/2012 V78.0 Anemia Screening 08/06/2012 V06.1 TDAP DX 08/06/2012 V77.1 Diabetes Screening 08/06/2012 V78.0 Anemia Screening 08/06/2012 V06.1 TDAP DX 08/06/2012 V77.1 Diabetes Screening 08/06/2012 V78.0 Anemia Screening 08/06/2012 V06.1 TDAP DX 08/06/2012 V77.1 Diabetes Screening 08/06/2012 V78.0 Anemia Screening 08/06/2012 V06.1 TDAP DX 08/06/2012 V77.1 Diabetes Screening 08/06/2012 V78.0 Anemia Screening 08/06/2012 JOSÉ LUIS CALI APRN V06.1 TDAP DX 08/06/2012 JOSÉ LUIS ACLI APRN V77.1 Diabetes Screening 08/06/2012 VIRAJ LIBRARY TECHNICIANJOSÉ LUIS Dutton S V78.0 Anemia Screening 08/06/2012 PENN DO, RUBI K V06.1 TDAP DX 08/06/2012 PENN DO, RUBI K V77.1 Diabetes Screening 08/06/2012 PENN DO, RUBI K V78.0 Anemia Screening 08/06/2012 ANGELO LIBRARY TECHNICIAN, ROMA A V06.1 TDAP DX 08/06/2012 ANGELO LIBRARY TECHNICIAN, ROMA A V77.1 Diabetes Screening 08/06/2012 ANGELO LIBRARY TECHNICIAN, ROMA A V78.0 Anemia Screening 08/06/2012 ANGELO LIBRARY TECHNICIAN, ROMA A V06.1 TDAP DX 08/06/2012 ANGELO LIBRARY TECHNICIAN, ROMA A V77.1 Diabetes Screening 08/06/2012 ANGELO LIBRARY TECHNICIAN, ROMA A V78.0 Anemia Screening 08/06/2012 ANGELO LIBRARY TECHNICIAN, ROMA A V06.1 TDAP DX 08/06/2012 ANGELO LIBRARY TECHNICIAN, ROMA A V77.1 Diabetes Screening 08/06/2012 ANGELO LIBRARY TECHNICIAN, ROMA A V78.0 Anemia Screening 08/06/2012 ANGELO LIBRARY TECHNICIAN, ROMA A V06.1 TDAP DX 08/06/2012 ANGELO LIBRARY TECHNICIAN, ROMA A V77.1 Diabetes Screening 08/06/2012 ANGELO LIBRARY TECHNICIAN, ROMA A V78.0 Anemia Screening 08/06/2012 KRIS SHOEMAKER APRN V06.1 TDAP DX 08/06/2012 KRIS SHOEMAKER APRN V77.1 Diabetes Screening 08/06/2012 KRIS SHOEMAKER APRN V78.0 Anemia Screening 08/06/2012 ANGELO LIBRARY TECHNICIAN, ROMA A V06.1 TDAP DX 08/06/2012 ANGELO LIBRARY TECHNICIAN, ROMA A V77.1 Diabetes Screening 08/06/2012 ANGELO LIBRARY TECHNICIAN, ROMA A V78.0 Anemia Screening 08/06/2012 ANGELO LIBRARY TECHNICIAN, ROMA A V06.1 TDAP DX 08/06/2012 ANGELO LIBRARY TECHNICIAN, ROMA A V77.1 Diabetes Screening 08/06/2012 ANGEOL LIBRARY TECHNICIAN, ROMA A V78.0 Anemia Screening 08/06/2012 ANGELO LIBRARY TECHNICIAN, ROMA A V06.1 TDAP DX 08/06/2012 ANGELOROMA Dutton APRN A V77.1 Diabetes Screening 08/06/2012 ANGELOROMA Dutton APRN A V78.0 Anemia Screening 08/06/2012 TJ HOWELL MD V06.1 TDAP DX 08/06/2012 LYNDA BURR, TJ V77.1 Diabetes Screening 08/06/2012 TJ HOWELL MD V78.0 Anemia Screening 09/14/2012 Ot 644.03 10/01/2012 V28.6 GBS SCREENING 10/01/2012 V28.6 GBS SCREENING 10/01/2012 V28.6 GBS SCREENING 10/01/2012 V28.6 GBS SCREENING 10/01/2012 V28.6 GBS SCREENING 10/01/2012 JOSÉ LUIS CALI APRN V28.6 GBS SCREENING 10/01/2012 RUBI PENN DO V28.6 GBS SCREENING 10/01/2012 ROMA STEPHENS APRN A V28.6 GBS SCREENING 10/01/2012 ROMA STEPHENS APRN A V28.6 GBS SCREENING 10/01/2012 ROMA STEPHENS APRN A V28.6 GBS SCREENING 10/01/2012 ROMA STEPHENS APRN A V28.6 GBS SCREENING 10/01/2012 KRIS SHOEMAKER APRN V28.6 GBS SCREENING 10/01/2012 AGNELOROMA Dutton APRN A V28.6 GBS SCREENING 10/01/2012 ROMA STEPHENS APRN A V28.6 GBS SCREENING 10/01/2012 YELENA STEPHENS APRNIDI A V28.6 GBS SCREENING 10/01/2012 TJ HOWELL MD V28.6 GBS SCREENING 10/22/2012 791.5 GLYCOSURIA 10/22/2012 791.5 GLYCOSURIA 10/22/2012 JOSÉ LUIS CALI APRN 791.5 GLYCOSURIA 10/22/2012 RUBI PENN DO 791.5 GLYCOSURIA 10/22/2012 ROMA STEPHENS APRN A 791.5 GLYCOSURIA 10/22/2012 ROMA STEPHENS APRN A 791.5 GLYCOSURIA 10/22/2012 ANGELO LIBRARY TECHNICIAN, ROMA A 791.5 GLYCOSURIA 10/22/2012 ANGELO LIBRARY TECHNICIAN, ROMA A 791.5 GLYCOSURIA 10/22/2012 KRIS SHOEMAKER APRN 791.5 GLYCOSURIA 10/22/2012 ANGELO LIBRARY TECHNICIAN, ROMA A 791.5 GLYCOSURIA 10/22/2012 ANGELO LIBRARY TECHNICIAN, ROMA A 791.5 GLYCOSURIA 10/22/2012 ANGELO LIBRARY TECHNICIAN, ROMA A 791.5 GLYCOSURIA 10/22/2012 TJ HOWELL MD 791.5 GLYCOSURIA 10/23/2012 PENN RUBI KU K Ot 623.5 10/23/2012 PENN PAIGE KUA K Ot 654.73 10/30/2012 COYNE DO MIRIAM C Ot 614.6 10/30/2012 COYNE DO, MIRIAM C Ot 648.91 10/30/2012 COYNE DO, MIRIAM C Ot 649.01 10/30/2012 COYNE DO, MIRIAM C Ot 654.21 10/30/2012 COYNE DO, MIRIAM C Ot 657.01 10/30/2012 COYNE DO, MIRIAM C Ot V27.0 12/09/2012 676.24 ENGORGEMENT OF BREASTS ASSOCIATED WITH [employer]ILDBIRTH 12/09/2012 V24.2 F/U, ROUTINE 12/09/2012 V25.01 CONTRACEPTION - ORAL CONTRACEPTION 12/09/2012 JOSÉ LUIS CALI APRN S 676.24 ENGORGEMENT OF BREASTS ASSOCIATED WITH CHILDBIRTH 12/09/2012 JOSÉ LUIS CALI APRN S V24.2 F/U, ROUTINE 12/09/2012 SEAN CALI APRNNDA S V25.01 CONTRACEPTION - ORAL CONTRACEPTION 12/09/2012 RUBI PENN DO K 676.24 ENGORGEMENT OF BREASTS ASSOCIATED WITH CHILDBIRTH 12/09/2012 RUBI PENN DO K V24.2 F/U, ROUTINE 12/09/2012 RUBI PENN DO K V25.01 CONTRACEPTION - ORAL CONTRACEPTION 12/09/2012 ROMA STEPHENS APRN A 676.24 ENGORGEMENT OF BREASTS ASSOCIATED WITH CHILDBIRTH 12/09/2012 ROMA STEPHENS APRN A V24.2 F/U, ROUTINE 12/09/2012 ANGELO CHOWDHURY, ROMA A V25.01 CONTRACEPTION - ORAL CONTRACEPTION 12/09/2012 ROMA STEPHENS APRN A 676.24 ENGORGEMENT OF BREASTS ASSOCIATED WITH CHILDBIRTH 12/09/2012 ANGELO CHOWDHURY, ROMA A V24.2 F/U, ROUTINE 12/09/2012 ANGELO CHOWDHURY, ROMA A V25.01 CONTRACEPTION - ORAL CONTRACEPTION 12/09/2012 ANGELO CHOWDHURY, ROMA A 676.24 ENGORGEMENT OF BREASTS ASSOCIATED WITH CHIL[employer]IRTH 12/09/2012 ANGELO CHOWDHURY, ROMA A V24.2 F/U, ROUTINE 12/09/2012 ANGELO CHOWDHURY, ROMA A V25.01 CONTRACEPTION - ORAL CONTRACEPTION 12/09/2012 ROMA STEPHENS APRN A 676.24 ENGORGEMENT OF BREASTS ASSOCIATED WITH CHILDBIRTH 12/09/2012 ROMA STEPHENS APRN A V24.2 F/U, ROUTINE 12/09/2012 ROMA STEPHENS APRN A V25.01 CONTRACEPTION - ORAL CONTRACEPTION 12/09/2012 KRIS SHOEMAKER APRN 676.24 ENGORGEMENT OF BREASTS ASSOCIATED WITH CHILDBIRTH 12/09/2012 KRIS SHOEMAKER APRN V24.2 F/U, ROUTINE 12/09/2012 KRIS SHOEMAKER APRN V25.01 CONTRACEPTION - ORAL CONTRACEPTION 12/09/2012 ROMA STEPHENS APRN A 676.24 ENGORGEMENT OF BREASTS ASSOCIATED WITH CHILDBIRTH 12/09[birth year]2012 ROMA STEPHENS APRN A V24.2 F/U, ROUTINE 12/09/2012 ROMA STEPHENS APRN A V25.01 CONTRACEPTION - ORAL CONTRACEPTION 12/09/2012 ROMA STEPHENS APRN A 676.24 ENGORGEMENT OF BREASTS ASSOCIATED WITH CHILDBIRTH 12/09/2012 ANGELO CHOWDHURY, ROMA A V24.2 F/U, ROUTINE 12/09/2012 ANGELO CHOWDHURY, ROMA A V25.01 CONTRACEPTION - ORAL CONTRACEPTION 12/09/2012 ROMA STEPHENS APRN A 676.24 ENGORGEMENT OF BREASTS ASSOCIATED WITH CHILDBIRTH 12/09/2012 ANGELO CHOWDHURY, ROMA A V24.2 F/U, ROUTINE 12/09/2012 ANGELO CHOWDHURY, ROMA A V25.01 CONTRACEPTION - ORAL CONTRACEPTION 12/09/2012 TJ HOWELL MD 676.24 ENGORGEMENT OF BREASTS ASSOCIATED WITH CHILDBIRTH 12/09/2012 TJ HOWELL MD V24.2 F/U, ROUTINE 12/09/2012 TJ HOWELL MD V25.01 CONTRACEPTION - ORAL CONTRACEPTION 07/09/2013 VIRAJ CHOWDHURY JOSÉ LUIS S 110.8 RINGWORM- UNSPECIFIED SITE 07/09/2013 VIRAJ CHOWDHURY JOSÉ LUIS S 599.0 URINARY TRACT INFECTION 07/09/2013 PENN DO, RUBI K 110.8 RINGWORM- UNSPECIFIED SITE 07/09/2013 PENN DO, RUBI K 599.0 URINARY TRACT INFECTION 07/09/2013 ANGELO CHOWDHURY, ROMA A 110.8 RINGWORM- UNSPECIFIED SITE 07/09/2013 YELENA STEPHENS APRNIDI A 599.0 URINARY TRACT INFECTION 07/09/2013 ANGELO CHOWDHURY, ROMA A 110.8 RINGWORM- UNSPECIFIED SITE 07/09/2013 ANGELO CHOWDHURY, ROMA A 599.0 URINARY TRACT INFECTION 07/09/2013 ANGELO CHOWDHURY, ROMA A 110.8 RINGWORM- UNSPECIFIED SITE 07/09/2013 ANGELO CHOWDHURY, ROMA A 599.0 URINARY TRACT INFECTION 07/09/2013 ANGELO CHOWDHURY, ROMA A 110.8 RINGWORM- UNSPECIFIED SITE 07/09/2013 ANGELO CHOWDHURY, ROMA A 599.0 URINARY TRACT INFECTION 07/09/2013 KRIS SHOEMAKER APRN 110.8 RINGWORM- UNSPECIFIED SITE 07/09/2013 KRIS SHOEMAKER APRN 599.0 URINARY TRACT INFECTION 07/09/2013 YELENA STEPHENS APRNIDI A 110.8 RINGWORM- UNSPECIFIED SITE 07/09/2013 ANGELO CHOWDHURY, ROMA A 599.0 URINARY TRACT INFECTION 07/09/2013 ANGELO CHOWDHURY, ROMA A 110.8 RINGWORM- UNSPECIFIED SITE 07/09/2013 YELENA STEPHENS APRNIDI A 599.0 URINARY TRACT INFECTION 07/09/2013 ANGELO LIBRARY TECHNICIAN, ROMA A 110.8 RINGWORM- UNSPECIFIED SITE 07/09/2013 ANGELO LIBRARY TECHNICIAN, ROMA A 599.0 URINARY TRACT INFECTION 07/09/2013 LYNDA BURR, TJ 110.8 RINGWORM- UNSPECIFIED SITE 07/09/2013 LYNDA BURR, TJ 599.0 URINARY TRACT INFECTION 08/29/2013 PENN DO, RUBI K V72.42 TEST POSITIVE RESULT 08/29/2013 ANGELO LIBRARY TECHNICIAN, ROMA A V72.42 TEST POSITIVE RESULT 08/29/2013 ANGELO LIBRARY TECHNICIAN, ROMA A V72.42 TEST POSITIVE RESULT 08/29/2013 ANGELO LIBRARY TECHNICIAN, ROMA A V72.42 TEST POSITIVE RESULT 08/29/2013 ANGELO LIBRARY TECHNICIAN, ROMA A V72.42 TEST POSITIVE RESULT 08/29/2013 KRIS SHOEMAKER APRN V72.42 TEST POSITIVE RESULT 08/29/2013 ANGELO LIBRARY TECHNICIAN, ROMA A V72.42 TEST POSITIVE RESULT 08/29/2013 ANGELO LIBRARY TECHNICIAN, ROMA A V72.42 TEST POSITIVE RESULT 08/29/2013 ANGELO LIBRARY TECHNICIAN, ROMA A V72.42 TEST POSITIVE RESULT 08/29/2013 TJ HOWELL MD V72.42 TEST POSITIVE RESULT 08/30/2013 ANDER BURR, JIM Schuster Ot 623.8 08/30/2013 ANDER BURR, JIM Schuster Ot 640.03 09/01/2013 ANGELO LIBRARY TECHNICIAN, ROMA A 640.00 THREATENED 09/01/2013 ANGELO LIBRARY TECHNICIAN, ROMA A 640.00 THREATENED 09/01/2013 ANGELO LIBRARY TECHNICIAN, ROMA A 640.00 THREATENED 09/01/2013 ANGELO LIBRARY TECHNICIAN, ROMA A 640.00 THREATENED 09/01/2013 KRIS SHOEMAKER APRN 640.00 THREATENED 09/01/2013 ANGELO LIBRARY TECHNICIAN, ROMA A 640.00 THREATENED 09/01/2013 ANGELO LIBRARY TECHNICIAN, ROMA A 640.00 THREATENED 09/01/2013 ANGELO LIBRARY TECHNICIAN, ROMA A 640.00 THREATENED 09/01/2013 TJ HOWELL MD 640.00 THREATENED 09/10/2013 ROMA STEPHENS APRN A 634.91 INCOMPLETE (SAB) 09/10/2013 ROMA STEPHENS APRN A 634.91 INCOMPLETE (SAB) 09/10/2013 KRIS SHOEMAKER APRN 634.91 INCOMPLETE (SAB) 09/10/2013 ROMA STEPHENS APRN A 634.91 INCOMPLETE (SAB) 09/10/2013 ANGELO ANAYANYELENAROMA A 634.91 INCOMPLETE (SAB) 09/10/2013 ANGELO ANAYANYELENAROMA A 634.91 INCOMPLETE (SAB) 09/10/2013 TJ HOWELL MD 634.91 INCOMPLETE (SAB) 04/28/2014 ANGELO ANAYANROMA A 724.2 LUMBAGO 04/28/2014 ANGELO ANAYANROMA A 788.41 URINARY FREQUENCY 04/28/2014 ANGELO ANAYANYELENAROMA A V74.5 STD SCREEN 04/28/2014 ANGELO ANAYANYELENAROMA A V76.2 CERVICAL CANCER SCREENING (PAP SMEAR) 04/28/2014 ANGELO ANAYANROMA A 724.2 LUMBAGO 04/28/2014 ANGELO ANAYANYELENAROMA A 788.41 URINARY FREQUENCY 04/28/2014 ANGELO ANAYANYELENAROMA A V74.5 STD SCREEN 04/28/2014 ANGELO ANAYAMarija ROMA A V76.2 CERVICAL CANCER SCREENING (PAP SMEAR) 04/28/2014 TJ HOWELL MD 724.2 LUMBAGO 04/28/2014 TJ HOWELL MD 788.41 URINARY FREQUENCY 04/28/2014 TJ HOWELL MD V74.5 STD SCREEN 04/28/2014 TJ HOWELL MD V76.2 CERVICAL CANCER SCREENING (PAP SMEAR) 06/14/2014 TJ HOWELL MD 611.6 GALACTORRHEA NOT ASSOCIATED WITH CHILDBIRTH 06/23/2014 Ot 649.63 06/23/2014 Ot V28.81 06/23/2014 Ot 654.23 06/23/2014 Ot 656.63 06/23/2014 MIRIAM COYNE DO Ot 654.23 06/23/2014 MIRIAM COYNE DO Ot V72.63 06/23/2014 MIRIAM COYNE DO Ot V74.8 07/15/2014 DARLENE TATE WEATHER STRIP INSTALLER Ot 611.79 06/28/2015 Ot 649.63 06/28/2015 Ot V28.81 06/28/2015 Ot 654.23 06/28/2015 Ot 656.63 06/28/2015 MIRIAM COYNE DO Ot 654.23 06/28/2015 MIRIAM COYNE DO Ot V72.63 06/28/2015 MIRIAM COYNE DO Ot V74.8 06/28/2015 DARLENE TATE WEATHER STRIP INSTALLER Ot 611.79 06/30/2015 JANETH MANUEL LIBRARY TECHNICIAN Ot Z34.80 07/15/2015 JANETH MANUEL LIBRARY TECHNICIAN Ot Z34.80 09/01/2015 PENN DORUBI Ot Z36 09/01/2015 PENN DORUBI Ot Z3A.21 01/04/2016 ARON TEE DO Ot O34.21 MATERNAL CARE FOR SCAR FROM PREVIOUS DUNG 01/04/2016 ARON TEE DO Ot Z01.818 ENCOUNTER FOR OTHER PREPROCEDURAL EXAMIN 01/04/2016 ARON TEE DO Ot Z11.2 ENCOUNTER FOR SCREENING FOR OTHER BACTER 01/05/2016 ARON TEE DO Ot O34.21 MATERNAL CARE FOR SCAR FROM PREVIOUS DUNG 01/05/2016 ARON TEE DO Ot Z01.818 ENCOUNTER FOR OTHER PREPROCEDURAL EXAMIN 01/05/2016 ARON TEE DO Ot Z11.2 ENCOUNTER FOR SCREENING FOR OTHER BACTER 01/12/2016 ARON TEE DO Ot E66.9 OBESITY, UNSPECIFIED 01/12/2016 ARON TEE DO Ot F32.9 MAJOR DEPRESSIVE DISORDER, SINGLE EPISOD 01/12/2016 ARON TEE DO Ot F41.8 OTHER SPECIFIED ANXIETY DISORDERS 01/12/2016 ARON TEE DO Ot O34.21 MATERNAL CARE FOR SCAR FROM PREVIOUS DUNG 01/12/2016 ARON TEE DO Ot O99.214 OBESITY COMPLICATING CHILDBIRTH 01/12/2016 ARON TEE DO Ot O99.334 SMOKING (TOBACCO) COMPLICATING CHILDBIRT 01/12/2016 ARON TEE DO Ot O99.344 OTHER MENTAL DISORDERS COMPLICATING CHIL 01/12/2016 ARON TEE DO Ot Z23 ENCOUNTER FOR IMMUNIZATION 01/12/2016 ARON TEE DO Ot Z37.0 SINGLE LIVE 01/12/2016 RANDAL KU ARON Quinteros Ot Z3A.39 39 WEEKS GESTATION OF 01/12/2016 ARON TEE DO Ot Z68.37 BODY MASS INDEX (BMI) 37.0-37.9, ADULT 01/25/2016 RANDAL KU ARON Quinteros Ot Z53.9 PROCEDURE AND TREATMENT NOT CARRIED OUT, 02/28/2016 ARON TEE DO Ot O34.21 MATERNAL CARE FOR SCAR FROM PREVIOUS DUNG 02/28/2016 RANDAL KU ARON Quinteros Ot Z01.818 ENCOUNTER FOR OTHER PREPROCEDURAL EXAMIN 02/28/2016 RANDAL KU ARON Quinteros Ot Z11.2 ENCOUNTER FOR SCREENING FOR OTHER BACTER Procedures Code Description [place] [address] GC/CHLAM PROBE (STATE) 04/23/2012 97911 UA OB DIP 2011 93562 CULTURE UROGENITAL 04/25/2012 24962 ROUTINE VENIPUNCTURE 05/21/2012 51825 US OB ULTRASOUND 05/21/2012 TETRA TETRA SCREEN 10/2011 53450 UA OB DIP 2011 57169 US OB ULTRASOUND 05/26/2012 47627 ROUTINE VENIPUNCTURE 05/27/2012 15150 CBC 05/27/2012 39002 CRP 05/28/2012 69417 RUBELLA ANTIBODY, IGG 05/28/2012 09515 UA OB DIP 2011 53464 CULTURE UROGENITAL 06/04/2012 23589 UA OB DIP 2012 46119 ROUTINE VENIPUNCTURE 08/06/2012 84196 UA OB DIP 2012 77279 CBC 08/06/2012 87261 GLUCOSE SHAWN 1 HOUR 08/06/2012 71122 US OB - FOLLOW UP 08/07/2012 78572 GLUCOSE SHAWN 3 HOUR 08/07/2012 50559 UA OB DIP 2012 33088 NON-STRESS TEST 09/17/2012 99551 UA OB DIP 2012 04003 UA OB DIP 2012 74059 CULTURE GROUP B STREP VAG 10/02/2012 40718 UA OB DIP 2012 30387 UA OB DIP 2012 96857 UA OB DIP 2012 24934 GLUCOSE FINGER STICK 10/22/2012 17254 URINE TEST (IN-HOUSE) 12/09/2012 35464 GLUCOSE SHAWN 2 HOUR 12/11/2012 55621 UA LONG DIP 07/09 14141 ROUTINE VENIPUNCTURE 09/01/2013 79093 HCG QUANTITATIVE 09/01/2013 13276 ROUTINE VENIPUNCTURE 09/04/2013 18505 HCG QUANTITATIVE 09/04/2013 10841 ROUTINE VENIPUNCTURE 09/10/2013 98091 HCG QUANTITATIVE 09/11/2013 61351 ROUTINE VENIPUNCTURE 09/17/2013 66254 HCG QUANTITATIVE 09/17/2013 03663 UA W/ CULTURE IF INDICATED 12/05/2013 09704 CULTURE URINE 19179 CULTURE URINE 61994 UA W/ CULTURE IF INDICATED 03/29/2014 92496 CULTURE UROGENITAL 04/28/2014 85769 CULTURE URINE 05/2014 57159 GC/CHLAM PROBE (STATE) 04/28/2014 40285 PAP SMEAR 2013 Q0091 PAP SMEAR OBTAIN SMEAR 04/28/2014 24192 UA W/ CULTURE IF INDICATED 04/28/2014 52015 TRICHOMONAS (IN-HOUSE) 04/28/2014 38005 PROLACTIN 2013 54742 CULTURE WOUND (AEROBIC) 06/16/2014 79902 MRA HEAD W/O CONTRAST 06/16/2014 [id number] 01/10/2016 Results Encounters ACCT No. Visit Date/Time Discharge Status Pt. Type Provider Facility Loc./Unit Complaint [id number] 06/14/2014 15:41:00 06/14/2014 23: 59:59 CLS Outpatient TJ HOWELL MD [id number] 04/28/2014 08:54:00 04/28/2014 23: 59:59 CLS Outpatient ROMA STEPHENS APRN [id number] 04/28/2014 08:54:00 04/28/2014 23: 59:59 CLS Outpatient ROMA STEPHENS APRN [id number] 03/29/2014 08:45:00 03/29/2014 23: 59:59 CLS Outpatient ROMA STEPHENS APRN [id number] 12/05/2013 09:54:00 12/05/2013 23: 59:59 CLS Outpatient KRIS SHOEMAKER APRN [id number] 09/10/2013 15:32:00 09/10/2013 23: 59:59 CLS Outpatient ROMA STEPHENS APRN [id number] 09/04/2013 14:28:00 09/04/2013 23: 59:59 CLS Outpatient ROMA STEPHENS APRN [id number] 09/01/2013 14:00:00 09/01/2013 23: 59:59 CLS Outpatient ROMA STEPHENS APRN [id number] 09/01/2013 14:00:00 09/01/2013 23: 59:59 CLS Outpatient ROMA STEPHENS APRN [id number] 08/29/2013 12:15:00 08/29/2013 23: 59:59 CLS Outpatient PENN DORUBI [id number] 07/09/2013 10:54:00 07/09/2013 23: 59:59 CLS Outpatient JOSÉ LUIS CALI APRN [id number] 09/17/2012 14:39:00 09/17/2012 23: 59:59 CLS Outpatient [id number] 09/03/2012 14:06:00 09/03/2012 23: 59:59 CLS Outpatient PENN DORUBI [id number] 08/06/2012 14:21:00 08/06/2012 23: 59:59 CLS Outpatient PENN DORUBI [id number] 07/15/2012 13:22:00 07/15/2012 23: 59:59 CLS Outpatient [id number] 07/09/2012 14:24:00 07/09/2012 23: 59:59 CLS Outpatient [id number] 06/03/2012 14:45:00 06/03/2012 23: 59:59 CLS Outpatient PENN DORUBI [id number] 05/27/2012 10:05:00 05/27/2012 23: 59:59 CLS Outpatient PENN DORUBI [id number] 05/21/2012 13:54:00 05/21/2012 23: 59:59 CLS Outpatient [id number] 04/23/2012 10:05:00 04/23/2012 23: 59:59 CLS Outpatient PENN DORUBI [id number] 12/09/2012 08:52:00 Document Registration [id number] 10/15/2012 14:46:00 Document Registration [id number] 10/08/2012 10:43:00 Document Registration [id number] 10/01/2012 14:25:00 Document Registration [id number] 09/03/2012 14:06:00 Document Registration
[2016-12-27 00:50] LABS: BASOPHILS % (AUTO) 0 % (0-10); EOSINOPHILS # (AUTO) 0.1 10^3/uL (0.0-0.3); EOSINOPHILS % (AUTO) 1 % (0-10); LYMPHOCYTES # (AUTO) 4.1 X 10^3 (1.0-4.0); LYMPHOCYTES % (AUTO) 33 % (12-44); MEAN CORPUSCULAR HEMOGLOBIN 32 PG (25-34); MEAN CORPUSCULAR HGB CONC 33 G/DL (32-36); MEAN CORPUSCULAR VOLUME 97 FL (80-99); MEAN PLATELET VOLUME 10.3 FL (7.4-10.4); MONOCYTES # (AUTO) 0.7 X 10^3 (0.0-1.0); MONOCYTES % (AUTO) 5 % (0-12); NEUTROPHILS # (AUTO) 7.5 X 10^3 (1.8-7.8); NEUTROPHILS % (AUTO) 61 % (42-75); PLATELET COUNT 281 10^3/uL (130-400); RED BLOOD COUNT 4.55 10^6/uL (4.35-5.85); RED CELL DISTRIBUTION WIDTH 14.2 % (10.0-14.5); WHITE BLOOD COUNT 12.4 10^3/uL (4.3-11.0)
[2016-12-27 00:59] LABS: BILIRUBIN,URINE NEGATIVE (NEGATIVE); KETONES,URINE 1+ (NEGATIVE); LEUKOCYTE ESTERASE ,URINE 2+ (NEGATIVE); NITRITE,URINE NEGATIVE (NEGATIVE); PH,URINE 6 (5-9); PROTEIN,URINE NEGATIVE (NEGATIVE); UROBILINOGEN,URINE NORMAL (NORMAL)
--- NOTE | 2016-12-27 01:03 | ED Psychosocial ---
General Stated Complaint: OVERDOSE Source: patient Exam Limitations: clinical condition History of Present Illness Time seen by provider: 00:38 Initial Comments [place] patient in with report of overdose. She apparently reported to him that she took a handful of pills that may be trazodone but unsure. He did bring an empty trazodone bottle and. Unknown of how many pills were adjusted. also reports that she had a few bloody Trini's tonight. Patient very somnolent on arrival. Unknown intent of overdose. Timing/Duration: just prior to arrival Severity: moderate, severe Associated Symptoms: ingestion Allergies and Home Medications Allergies Coded Allergies: Penicillins (Verified Allergy, Intermediate, HIVES, 02/10/12) sulfamethoxazole (Verified Allergy, Mild, RASH, 02/10/12) trimethoprim (Verified Allergy, Mild, RASH, 02/10/12) Home Medications Docusate Sodium 100 Mg Capsule, 100 MG PO BID PRN for CONSTIPATION, #40 Prescribed by: ARON TEE on 01/12/16725 Hydrocodone/Acetaminophen 1 Each Tablet, 1-2 TAB PO Q4H PRN for PAIN, #50 Prescribed by: ARON TEE on 01/12/16 0726 Ibuprofen 600 Mg Tablet, 600 MG PO Q6H, #60 Prescribed by: ARON TEE on 01/12/16 0726 Vits W-Ca,Fe,Fa(<1MG) 1 Each Tablet, 1 EACH PO HS, (Reported) Constitutional: see HPI Other Unable to complete review of systems due to altered mental status. Past Rtqnxxa-Dplheh-Vbawpi Hx Patient Social History Alcohol Use: Occasionally Uses Smoking Status: Current Everyday Smoker 2nd Hand Smoke Exposure: Yes Recent Foreign Travel: No Contact w/Someone Who Travel: No Recent Hopitalizations: No Immunizations Up To Date Tetanus Booster (TDap): Less than 5yrs Date of Influenza Vaccine: Mar 17, 2012 Seasonal Allergies Seasonal Allergies: No Surgeries HX Surgeries: Yes (C/S X2) Respiratory Hx Respiratory Disorders: Yes (ASTHMA- ONLY A CHILD) Cardiovascular Hx Cardiac Disorders: No Neurological Hx Neurological Disorders: No Reproductive System Hx Reproductive Disorders: No Sexually Transmitted Disease: No HIV/AIDS: No Female Reproductive Disorders: Ovarian Cyst Genitourinary Hx Genitourinary Disorders: Yes Genitourinary Disorders: Bladder Infection Gastrointestinal Hx Gastrointestinal Disorders: Yes (IBS) Gastrointestinal Disorders: Gastroesophageal Reflux, Irritable Bowel Musculoskeletal Hx Musculoskeletal Disorders: No Endocrine Hx Endocrine Disorders: No HEENT HX ENT Disorders: Yes (STIGMATISM) Cancer Hx Cancer: No Psychosocial Hx Psychiatric Problems: Yes (OCD) Behavioral Health Disorders: Anxiety, Suicide Attempts, Bipolar, Depression Integumentary HX Skin/Integumentary Disorder: No Blood Transfusions Hx Blood Disorders: No Adverse Reaction to a Blood Tr: No Family Medical History Other History of her record review this patient is unable to answer due to altered mental status Family Medial History: Abdominal aortic aneurysm 19 MOTHER (BRAIN ANEURYSM) Cardiovascular disease GRANDPARENTS Colon cancer GRANDPARENTS (BONE CA) Hypertension 19 MOTHER GRANDPARENTS Myocardial infarction GRANDPARENTS Psychosocial problem 19 MOTHER Physical Exam Vital Signs Capillary Refill : General Appearance: WD/WN, other (unresponsive except to sternal verbal or painful stimulus.) HEENT: PERRL/EOMI, pharynx normal Neck: full range of motion, supple Respiratory: lungs clear, normal breath sounds Cardiovascular: regular rate, rhythm, no murmur Peripheral Pulses: 2+ Dorsalis Pedis (R), 2+ Left Dors-Pedis (L), 2+ Radial Pulses (R), 2+ Radial Pulses (L) Gastrointestinal: non tender, soft Extremities: non-tender, normal inspection Neurologic/Psychiatric: disoriented x 3, other (essentially unresponsive except to verbal or painful stimuli.) Skin: normal color, warm/dry Progress/Results/Core Measures Results/Orders Lab Results Laboratory Tests Test 12/27/16 00:40 12/27/16 00:51 Range/Units White Blood Count 12.4 H 4.3-11.0 10^3/uL Red Blood Count 4.55 4.35-5.85 10^6/uL Hemoglobin 14.4 11.5-16.0 G/DL Hematocrit 44 35-52 % Mean Corpuscular Volume 97 80-99 FL Mean Corpuscular Hemoglobin 32 25-34 PG Mean Corpuscular Hemoglobin Concent 33 32-36 G/DL Red Cell Distribution Width 14.2 10.0-14.5 % Platelet Count 281 130-400 10^3/uL Mean Platelet Volume 10.3 7.4-10.4 FL Neutrophils (%) (Auto) 61 42-75 % Lymphocytes (%) (Auto) 33 12-44 % Monocytes (%) (Auto) 5 0-12 % Eosinophils (%) (Auto) 1 0-10 % Basophils (%) (Auto) 0 0-10 % Neutrophils # (Auto) 7.5 1.8-7.8 X 10^3 Lymphocytes # (Auto) 4.1 H 1.0-4.0 X 10^3 Monocytes # (Auto) 0.7 0.0-1.0 X 10^3 Eosinophils # (Auto) 0.1 0.0-0.3 10^3/uL Basophils # (Auto) 0.0 0.0-0.1 10^3/uL Sodium Level 146 H 135-145 MMOL/L Potassium Level 3.7 3.6-5.0 MMOL/L Chloride Level 112 H 98-107 MMOL/L Carbon Dioxide Level 20 L 21-32 MMOL/L Anion Gap 14 5-14 MMOL/L Blood Urea Nitrogen 13 7-18 MG/DL Creatinine 0.80 0.60-1.30 MG/DL Estimat Glomerular Filtration Rate > 60 BUN/Creatinine Ratio 16 Glucose Level 97 70-105 MG/DL Calcium Level 9.0 8.5-10.1 MG/DL Total Bilirubin 0.3 0.1-1.0 MG/DL Aspartate Amino Transf (AST/SGOT) 21 5-34 U/L Alanine Aminotransferase (ALT/SGPT) 20 0-55 U/L Alkaline Phosphatase 51 40-136 U/L Total Protein 7.3 6.4-8.2 GM/DL Albumin 4.5 3.2-4.5 GM/DL Salicylates Level < 5.0 L 5.0-20.0 MG/DL Acetaminophen Level < 10 L 10-30 UG/ML Serum Alcohol 167 H <10 MG/DL Urine Color YELLOW Urine Clarity CLEAR Urine pH 6 5-9 Urine Specific [place] 1.020 1.016-1.022 Urine Protein NEGATIVE NEGATIVE Urine Glucose (UA) NEGATIVE NEGATIVE Urine Ketones 1+ H NEGATIVE Urine Nitrite NEGATIVE NEGATIVE Urine Bilirubin NEGATIVE NEGATIVE Urine Urobilinogen NORMAL NORMAL MG/DL Urine Leukocyte Esterase 2+ H NEGATIVE Urine RBC (Auto) NEGATIVE NEGATIVE Urine RBC RARE /HPF Urine WBC RARE /HPF Urine Squamous Epithelial Cells 2-5 /HPF Urine Crystals NONE /LPF Urine Bacteria NEGATIVE /HPF Urine Casts NONE /LPF Urine Mucus SMALL H /LPF Urine Culture Indicated NO Urine Test NEGATIVE NEGATIVE Urine Opiates Screen NEGATIVE NEGATIVE Urine Oxycodone Screen NEGATIVE NEGATIVE Urine Methadone Screen NEGATIVE NEGATIVE Urine Propoxyphene Screen NEGATIVE NEGATIVE Urine Barbiturates Screen NEGATIVE NEGATIVE Ur Tricyclic Antidepressants Screen NEGATIVE NEGATIVE Urine Phencyclidine Screen NEGATIVE NEGATIVE Urine Amphetamines Screen NEGATIVE NEGATIVE Urine Methamphetamines Screen NEGATIVE NEGATIVE Urine Benzodiazepines Screen NEGATIVE NEGATIVE Urine Cocaine Screen NEGATIVE NEGATIVE Urine Cannabinoids Screen POSITIVE H NEGATIVE My Orders Orders - JIM WORTHINGTON MD Ua Culture If Indicated (12/27/16 00:46) Cbc With Automated Diff (12/27/16 00:46) Comprehensive Metabolic Panel (12/27/16 00:46) Alcohol (12/27/16 00:46) Drug Screen Stat (Urine) (12/27/16 00:46) Acetaminophen (12/27/16:46) Salicylate (12/27/16:46) Ekg Tracing (12/27/16:46) Hcg,Qualitative Urine (12/27/16:46) Saline Lock/Iv-Start (12/27/16 00:46) Monitor-Rhythm Ecg Trace Only (12/27/16 00:46) Ns Iv 1000 Ml (Sodium Chloride 0.9%) (12/27/16 00:46) Medications Given in ED Current Medications Medications Dose Ordered Sig/Bernarda Route Start Time Stop Time Status Last Admin Dose Admin Sodium Chloride 1,000 ml @ 0 mls/hr Q0M ONCE IV 12/27/16 00:46 12/27/16 00:47 DC 12/27/16 00:57 999 MLS/HR Progress Note : Progress Note Seen and evaluated on arrival. IV, labs, UA, UDS, EKG and normal saline 1 L bolus ordered. Monitor patient. Poison control contacted. 0120: Discussed case with Dr. Donato. She accepts patient for admission, observation status. Undetermined intent related to overdose. Patient to be admitted to the ICU. Observation status. informed and agrees with plan. Poison control recommendations: Supportive care. Monitor for significant lethargy. Monitor for serotonin syndrome and seizures. For QTC greater than 500 give 1-2 g of mag sulfate IV. Current QTC is 451. Recommending EKG every 4 hours to monitor QTC level. ECG Initial ECG Impression Date: Dec 27, 2016 Initial ECG Impression Time: 00:49 Initial ECG Rate: 92 Initial ECG Rhythm: Normal Sinus Comment Sinus rhythm with normal axis. No evidence of ST elevation CT. No previous available for comparison. QT 364. Interpreted by me. Departure Communication Time/Spoke to Admitting Phy: 01:20 Impression Impression: Primary Impression: Drug overdose Qualified Codes: T50.904A - Poisoning by unspecified drugs, medicaments and biological substances, undetermined, initial encounter Additional Impression: Alcohol intoxication Qualified Codes: F10.929 - Alcohol use, unspecified with intoxication, unspecified Disposition: 09 ADMITTED INPATIENT Condition: Critical Decision to Admit Reason: Admit from ER (General) Decision to Admit/Date: Dec 27, 2016 Time/Decision to Admit Time: 01:20 Departure-Patient Inst. Referrals: RUBI PENN DO (PCP/Family) Primary Care Physician JIM WORTHINGTON MD Dec 27, 2016 01:03
[2016-12-27 01:06] LABS: WBC,URINE RARE /HPF
[2016-12-27 01:14] LABS: POTASSIUM 3.7 MMOL/L (3.6-5.0); SODIUM 146 MMOL/L (135-145)
[2016-12-27 01:15] LABS: ALANINE AMINOTRANSFERASE 20 U/L (0-55); ALBUMIN 4.5 GM/DL (3.2-4.5); ALCOHOL 167 MG/DL (<10); ANION GAP 14 MMOL/L (5-14); ASPARTATE AMINO TRANSFERASE 21 U/L (5-34); BILIRUBIN,TOTAL 0.3 MG/DL (0.1-1.0); BLOOD UREA NITROGEN 13 MG/DL (7-18); BUN/CREATININE RATIO 16; CARBON DIOXIDE 20 MMOL/L (21-32); CHLORIDE 112 MMOL/L (98-107); GFR ESTIMATED > 60; GLUCOSE 97 MG/DL (70-105); SALICYLATE < 5.0 MG/DL (5.0-20.0); TOTAL PROTEIN 7.3 GM/DL (6.4-8.2)
[2016-12-27 01:16] LABS: ACETAMINOPHEN < 10 UG/ML (10-30)
--- OUTSIDE RECORDS SUMMARY | 2016-12-27 01:57 | XMS REPORT | Continuity of Care Document ---
Author Author [facility] Address Unknown Phone Unavailable Allergies Active Description Code Type Severity Reaction Onset Reported/Identified Relationship to Patient Clinical Status Yes Penicillins Drug Allergy N/A N/A 11/26/2008 Yes Penicillins Drug Allergy 11/26/2008 Yes Bactrim Drug Allergy N/A N/A 02/05/2012 Yes Bactrim Drug Allergy 02/05/2012 Yes Penicillins [id number] Drug Allergy Moderate HIVES 02/10/2012 Yes sulfamethoxazole [id number] Drug Allergy Mild RASH 02/10/2012 Yes trimethoprim [id number] Drug Allergy Mild RASH 02/10/2012 Medications Problems [...] 02/26/2008 V58.69 Medication High Risk 02/26/2008 VIRAJ NEUROPHYSIOLOGY TECH, JOSÉ LUIS S V25.49 Surveillance Of Other Contraceptive Method 02/26/2008 VIRAJ NEUROPHYSIOLOGY TECH, JOSÉ LUIS S V58.69 Medication High Risk 02/26/2008 PENN DO RUBI K V25.49 Surveillance Of Other Contraceptive Method 02/26/2008 PENN DO RUBI K V58.69 Medication High Risk 02/26/2008 ANGELO NEUROPHYSIOLOGY TECH, ROMA A V25.49 Surveillance Of Other Contraceptive Method 02/26/2008 ANGELO NEUROPHYSIOLOGY TECH, ROMA A V58.69 Medication High Risk 02/26/2008 ANGEOL NEUROPHYSIOLOGY TECH ROMA A V25.49 Surveillance Of Other Contraceptive Method 02/26/2008 ANGELO NEUROPHYSIOLOGY TECH, ROMA A V58.69 Medication High Risk 02/26/2008 ANGELO NEUROPHYSIOLOGY TECH ROMA A V25.49 Surveillance Of Other Contraceptive Method 02/26/2008 ANGELO NEUROPHYSIOLOGY TECH, ROMA A V58.69 Medication High Risk 02/26/2008 ANGELO NEUROPHYSIOLOGY TECH, ROMA A V25.49 Surveillance Of Other Contraceptive Method 02/26/2008 ANGELO LUCIANA, ROMA A V58.69 Medication High Risk 02/26/2008 KRIS SHOEMAKER APRN V25.49 Surveillance Of Other Contraceptive Method 02/26/2008 KRIS SHOEMAKER APRN V58.69 Medication High Risk 02/26/2008 ANGELO CHOWDHURY ROMA A V25.49 Surveillance Of Other Contraceptive Method 02/26/2008 ANGELO CHOWDHURY ROMA A V58.69 Medication High Risk 02/26/2008 ANGELO NEUROPHYSIOLOGY TECH, ROMA A V25.49 Surveillance Of Other Contraceptive Method 02/26/2008 ANGELO NEUROPHYSIOLOGY TECH, ROMA A V58.69 Medication High Risk 02/26/2008 ANGELO NEUROPHYSIOLOGY TECH, ROMA A V25.49 Surveillance Of Other Contraceptive Method 02/26/2008 ANGELO NEUROPHYSIOLOGY TECH, ROMA A V58.69 Medication High Risk 02/26/2008 [...] DO, RUBI K 784.0 Headache 03/07/2009 ANGELO NEUROPHYSIOLOGY TECH, ROMA A 784.0 Headache 03/07/2009 ANGELO NEUROPHYSIOLOGY TECH, ROMA A 784.0 Headache 03/07/2009 ANGELO NEUROPHYSIOLOGY TECH, ROMA A 784.0 Headache 03/07/2009 ANGELO NEUROPHYSIOLOGY TECH, ROMA A 784.0 Headache 03/07/2009 KRIS SHOEMAKER APRN 784.0 Headache 03/07/2009 ANGELO NEUROPHYSIOLOGY TECH, ROMA A 784.0 Headache 03/07/2009 ANGELO NEUROPHYSIOLOGY TECH, ROMA A 784.0 Headache 03/07/2009 ANGELO NEUROPHYSIOLOGY TECH, ROMA A 784.0 Headache 03/07/2009 TJ HOWELL [...] Tract Infection, Site Not Specified 09/08/2009 VIRAJ NEUROPHYSIOLOGY TECH, JOSÉ LUIS S 535.40 Other Specified Gastritis, Without Mention Of Hemorrhage 09/08/2009 VIRAJ NEUROPHYSIOLOGY TECH, JOSÉ LUIS S 599.0 Urinary Tract Infection, Site Not Specified 09/08/2009 PENN DO, RUBI K 535.40 Other Specified Gastritis, Without Mention Of Hemorrhage 09/08/2009 PENN DO, RUBI K 599.0 Urinary Tract Infection, Site Not Specified 09/08/2009 ANGELO NEUROPHYSIOLOGY TECH, ROMA A 535.40 Other Specified Gastritis, Without Mention Of Hemorrhage 09/08/2009 ANGELO NEUROPHYSIOLOGY TECH, ROMA A 599.0 Urinary Tract Infection, Site Not Specified 09/08/2009 ANGELO NEUROPHYSIOLOGY TECH, ROMA A 535.40 Other Specified Gastritis, Without Mention Of Hemorrhage 09/08/2009 ANGELO NEUROPHYSIOLOGY TECH, ROMA A 599.0 Urinary Tract Infection, Site Not Specified 09/08/2009 ANGELO NEUROPHYSIOLOGY TECH, ROMA A 535.40 Other Specified Gastritis, Without Mention Of Hemorrhage 09/08/2009 ANGELO NEUROPHYSIOLOGY TECH, ROMA A 599.0 Urinary Tract Infection, Site Not Specified 09/08/2009 ANGELO NEUROPHYSIOLOGY TECH, ROMA A 535.40 Other Specified Gastritis, Without Mention Of Hemorrhage 09/08/2009 ANGELO NEUROPHYSIOLOGY TECH, ROMA A 599.0 Urinary Tract Infection, Site Not Specified 09/08/2009 SAHARA NEUROPHYSIOLOGY TECH, KRIS T 535.40 Other Specified Gastritis, Without Mention Of Hemorrhage 09/08/2009 SAHARA NEUROPHYSIOLOGY TECH KRIS T 599.0 Urinary Tract Infection, Site Not Specified 09/08/2009 ANGELO NEUROPHYSIOLOGY TECH, ROMA A 535.40 Other Specified Gastritis, Without Mention Of Hemorrhage 09/08/2009 ANGELO NEUROPHYSIOLOGY TECH, ROMA A 599.0 Urinary Tract Infection, Site Not Specified 09/08/2009 ANGELO NEUROPHYSIOLOGY TECH, ROMA A 535.40 Other Specified Gastritis, Without Mention Of Hemorrhage 09/08/2009 ANGELO NEUROPHYSIOLOGY TECH, ROMA A 599.0 Urinary Tract Infection, Site Not Specified 09/08/2009 ANGELO NEUROPHYSIOLOGY TECH, ROMA A 535.40 Other Specified Gastritis, Without Mention Of Hemorrhage 09/08/2009 ANGELO NEUROPHYSIOLOGY TECH, ROMA A 599.0 Urinary Tract Infection, Site Not Specified 09/08/2009 TJ HOWELL MD 535.40 Other Specified Gastritis, Without Mention Of Hemorrhage 09/08/2009 LYNDA BURR, TJ 599.0 Urinary Tract Infection, Site Not Specified 11/09/2009 Ot 786.50 11/09/2009 Ot 786.52 11/10/2009 RUBI PENN DO V72.31 Third Steel Pourer Exam, Routine 11/10/2009 V72.31 Third Steel Pourer Exam, Routine 11/10/2009 RUBI PENN DO V72.31 Third Steel Pourer Exam, Routine 11/10/2009 RUBI PENN DO V72.31 Third Steel Pourer Exam, Routine 11/10/2009 V72.31 Third Steel Pourer Exam, Routine 11/10/2009 V72.31 Third Steel Pourer Exam, Routine 11/10/2009 RUBI PENN DO V72.31 Third Steel Pourer Exam, Routine 11/10/2009 RUBI PENN DO V72.31 Third Steel Pourer Exam, Routine 11/10/2009 V72.31 Third Steel Pourer Exam, Routine 11/10/2009 V72.31 Third Steel Pourer Exam, Routine 11/10/2009 V72.31 Third Steel Pourer Exam, Routine 11/10/2009 V72.31 Third Steel Pourer Exam, Routine 11/10/2009 V72.31 Third Steel Pourer Exam, Routine 11/10/2009 V72.31 Third Steel Pourer Exam, Routine 11/10/2009 JOSÉ LUIS CALI APRN V72.31 Third Steel Pourer Exam, Routine 11/10/2009 RUBI PENN DO V72.31 Third Steel Pourer Exam, Routine 11/10/2009 ANGELO NEUROPHYSIOLOGY TECH, ROMA A V72.31 Third Steel Pourer Exam, Routine 11/10/2009 ANGELO NEUROPHYSIOLOGY TECH, ROMA A V72.31 Third Steel Pourer Exam, Routine 11/10/2009 ANGELO NEUROPHYSIOLOGY TECH, ROMA A V72.31 Third Steel Pourer Exam, Routine 11/10/2009 ANGELO NEUROPHYSIOLOGY TECH, ROMA A V72.31 Third Steel Pourer Exam, Routine 11/10/2009 KRIS SHOEMAKER APRN V72.31 Third Steel Pourer Exam, Routine 11/10/2009 ANGELO NEUROPHYSIOLOGY TECH, ROMA A V72.31 Third Steel Pourer Exam, Routine 11/10/2009 ANGELO NEUROPHYSIOLOGY TECH, ROMA A V72.31 Third Steel Pourer Exam, Routine 11/10/2009 ANGELO NEUROPHYSIOLOGY TECH, ROMA A V72.31 Third Steel Pourer Exam, Routine 11/10/2009 TJ HOWELL MD V72.31 Third Steel Pourer Exam, Routine 01/19/2010 PENN DO, RUBI K [...] 380.10 Infective Otitis Externa, Unspecified 01/19/2010 ANGELO NEUROPHYSIOLOGY TECH, ROMA A 380.10 Infective Otitis Externa, Unspecified 01/19/2010 ANGELO NEUROPHYSIOLOGY TECH, ROMA A 380.10 Infective Otitis Externa, Unspecified 01/19/2010 ANGELO NEUROPHYSIOLOGY TECH, ROMA A 380.10 Infective Otitis Externa, Unspecified 01/19/2010 ANGELO NEUROPHYSIOLOGY TECH, ROMA A 380.10 Infective Otitis Externa, Unspecified 01/19/2010 KRIS SHOEMAKER APRN 380.10 Infective Otitis Externa, Unspecified 01/19/2010 ANGELO NEUROPHYSIOLOGY TECH, ROMA A 380.10 Infective Otitis Externa, Unspecified 01/19/2010 ANGELO NEUROPHYSIOLOGY TECH, ROMA A 380.10 Infective Otitis Externa, Unspecified 01/19/2010 ANGELO NEUROPHYSIOLOGY TECH, ROMA A 380.10 Infective Otitis Externa, Unspecified [...] 04/04/2010 V69.2 High-risk Sexual Behavior 04/04/2010 VIRAJ NEUROPHYSIOLOGY TECH, JOSÉ LUIS S 616.10 Vaginitis Vulvovaginitis Unspecified 04/04/2010 VIRAJ NEUROPHYSIOLOGY TECH, JOSÉ LUIS S V69.2 High-risk Sexual Behavior 04/04/2010 PENN DO, RUBI K 616.10 Vaginitis Vulvovaginitis Unspecified 04/04/2010 PENN DO, RUBI K V69.2 High-risk Sexual Behavior 04/04/2010 ANGELO NEUROPHYSIOLOGY TECH, ROMA A 616.10 Vaginitis Vulvovaginitis Unspecified 04/04/2010 ANGELO NEUROPHYSIOLOGY TECH, ROMA A V69.2 High-risk Sexual Behavior 04/04/2010 ANGELO NEUROPHYSIOLOGY TECH, ROMA A 616.10 Vaginitis Vulvovaginitis Unspecified 04/04/2010 ANGELO NEUROPHYSIOLOGY TECH, ROMA A V69.2 High-risk Sexual Behavior 04/04/2010 ANGELO NEUROPHYSIOLOGY TECH, ROMA A 616.10 Vaginitis Vulvovaginitis Unspecified 04/04/2010 ANGELO NEUROPHYSIOLOGY TECH, ROMA A V69.2 High-risk Sexual Behavior 04/04/2010 ANGELO NEUROPHYSIOLOGY TECH, ROMA A 616.10 Vaginitis Vulvovaginitis Unspecified 04/04/2010 ANGELO NEUROPHYSIOLOGY TECH, ROMA A V69.2 High-risk Sexual Behavior 04/04/2010 KRIS SHOEMAKER APRN 616.10 Vaginitis Vulvovaginitis Unspecified 04/04/2010 KRIS SHOEMAKER APRN V69.2 High-risk Sexual Behavior 04/04/2010 ANGELO NEUROPHYSIOLOGY TECH, ROMA A 616.10 Vaginitis Vulvovaginitis Unspecified 04/04/2010 ANGELO NEUROPHYSIOLOGY TECH, ROMA A V69.2 High-risk Sexual Behavior 04/04/2010 ANGELO NEUROPHYSIOLOGY TECH, ROMA A 616.10 Vaginitis Vulvovaginitis Unspecified 04/04/2010 ANGELO NEUROPHYSIOLOGY TECH, ROMA A V69.2 High-risk Sexual Behavior 04/04/2010 ANGELO NEUROPHYSIOLOGY TECH, ROMA A 616.10 Vaginitis Vulvovaginitis Unspecified 04/04/2010 ANGELO NEUROPHYSIOLOGY TECH, ROMA A V69.2 High-risk Sexual Behavior 04/04/2010 [...] Redness Or Discharge Of Eye 07/27/2010 ANGELO NEUROPHYSIOLOGY TECH, ROMA A 379.93 Redness Or Discharge Of Eye 07/27/2010 ANGELO ANAYAN, ROMA A 379.93 Redness Or Discharge Of Eye 07/27/2010 ANGELO NEUROPHYSIOLOGY TECH, ROMA A 379.93 Redness Or Discharge Of Eye 07/27/2010 ANGELO ANAYAN, ROMA A 379.93 Redness Or Discharge Of Eye 07/27/2010 KRIS SHOEMAKER APRN 379.93 Redness Or Discharge Of Eye 07/27/2010 ANGELO NEUROPHYSIOLOGY TECH, ROMA A 379.93 Redness Or Discharge Of Eye 07/27/2010 ANGELO ANAYAN, ROMA A 379.93 Redness Or Discharge Of Eye 07/27/2010 ANGELO NEUROPHYSIOLOGY TECH, ROMA A 379.93 Redness Or Discharge Of [...] K 919.5 Insect Bite Infected 10/25/2010 ANGELO NEUROPHYSIOLOGY TECH, ROMA A 919.5 Insect Bite Infected 10/25/2010 ANGELO NEUROPHYSIOLOGY TECH, ROMA A 919.5 Insect Bite Infected 10/25/2010 ANGELO NEUROPHYSIOLOGY TECH, ROMA A 919.5 Insect Bite Infected 10/25/2010 ANGELO CHOWDHURY, ROMA A 919.5 Insect Bite Infected 10/25/2010 KRIS SHOEMAKER APRN 919.5 Insect Bite Infected 10/25/2010 ANGELO NEUROPHYSIOLOGY TECH, ROMA A 919.5 Insect Bite Infected 10/25/2010 ANGELO ANAYAN, ROMA A 919.5 Insect Bite Infected 10/25/2010 ANGELO NEUROPHYSIOLOGY TECH, ROMA A 919.5 Insect Bite Infected 10/25/2010 [...] 625.0 Dyspareunia 12/26/2010 625.0 Dyspareunia 12/26/2010 VIRAJ NEUROPHYSIOLOGY TECH, JOSÉ LUIS Quinteros 625.0 Dyspareunia 12/26/2010 RUBI PENN DO K 625.0 Dyspareunia 12/26/2010 ANGELO NEUROPHYSIOLOGY TECH, ROMA A 625.0 Dyspareunia 12/26/2010 ANGELO NEUROPHYSIOLOGY TECH, ROMA A 625.0 Dyspareunia 12/26/2010 ANGELO NEUROPHYSIOLOGY TECH, ROMA A 625.0 Dyspareunia 12/26/2010 ANGELO NEUROPHYSIOLOGY TECH, ROMA A 625.0 Dyspareunia 12/26/2010 SAHARA NEUROPHYSIOLOGY TECHKRIS Dutton 625.0 Dyspareunia 12/26/2010 ANGELO NEUROPHYSIOLOGY TECH, ROMA A 625.0 Dyspareunia 12/26/2010 ANGELO NEUROPHYSIOLOGY TECH, ROMA A 625.0 Dyspareunia 12/26/2010 ANGELO NEUROPHYSIOLOGY TECH, ROMA A 625.0 Dyspareunia 12/26/2010 TJ HOWELL MD 625.0 Dyspareunia 03/22/2011 RUBI PENN DO 595.0 Acute Cystitis 03/22/2011 595.0 Acute Cystitis 03/22/2011 RUBI EPNN DO 595.0 Acute Cystitis 03/22/2011 RUBI PENN DO 595.0 Acute Cystitis 03/22/2011 595.0 Acute Cystitis 03/22/2011 595.0 Acute Cystitis 03/22/2011 RUBI PENN DO K 595.0 Acute Cystitis 03/22/2011 RUBI PENN DO K 595.0 Acute Cystitis 03/22/2011 595.0 Acute Cystitis 03/22/2011 595.0 Acute Cystitis 03/22/2011 595.0 Acute Cystitis 03/22/2011 595.0 Acute Cystitis 03/22/2011 595.0 Acute Cystitis 03/22/2011 595.0 Acute Cystitis 03/22/2011 VIRAJ NEUROPHYSIOLOGY TECH, JOSÉ LUIS S 595.0 Acute Cystitis 03/22/2011 RUBI PENN DO 595.0 Acute Cystitis 03/22/2011 ANGELO NEUROPHYSIOLOGY TECH, ROMA A 595.0 Acute Cystitis 03/22/2011 ANGELO NEUROPHYSIOLOGY TECH, ROMA A 595.0 Acute Cystitis 03/22/2011 ANGELO NEUROPHYSIOLOGY TECH, ROMA A 595.0 Acute Cystitis 03/22/2011 ANGELO NEUROPHYSIOLOGY TECH, ROMA A 595.0 Acute Cystitis 03/22/2011 SAHARA NEUROPHYSIOLOGY TECH, KRIS Reyes 595.0 Acute Cystitis 03/22/2011 ANGELO NEUROPHYSIOLOGY TECH, ROMA A 595.0 Acute Cystitis 03/22/2011 ANGELO NEUROPHYSIOLOGY TECH, ROMA A 595.0 Acute Cystitis 03/22/2011 ANGELO NEUROPHYSIOLOGY TECH, ROMA A 595.0 Acute Cystitis 03/22/2011 TJ [...] Female Genital Organ Site Unspecified 08/28/2011 ANGELO NEUROPHYSIOLOGY TECH, ROMA A 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 08/28/2011 ANGELO NEUROPHYSIOLOGY TECH, ROMA A 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 08/28/2011 ANGELO NEUROPHYSIOLOGY TECH, ROMA A 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 08/28/2011 ANGELO NEUROPHYSIOLOGY TECH, ROMA A 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 08/28/2011 KRIS SHOEMAKER APRN 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 08/28/2011 ANGELO NEUROPHYSIOLOGY TECH, ROMA A 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 08/28/2011 ANGELO NEUROPHYSIOLOGY TECH, ROMA A 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 08/28/2011 ANGELO NEUROPHYSIOLOGY TECH, ROMA A 221.9 Benign Neoplasm Of Female [...] Allergy Unspecified Not Elsewhere Classified 02/05/2012 ANGELO NEUROPHYSIOLOGY TECH, ROMA A 599.0 Urinary Tract Infection Site Not Specified 02/05/2012 ANGELO NEUROPHYSIOLOGY TECH, ROMA A 995.3 Allergy Unspecified Not Elsewhere Classified 02/05/2012 ANGELO NEUROPHYSIOLOGY TECH, ROMA A 599.0 Urinary Tract Infection Site Not Specified 02/05/2012 ANGELO NEUROPHYSIOLOGY TECH, ROMA A 995.3 Allergy Unspecified Not Elsewhere Classified 02/05/2012 ANGELO NEUROPHYSIOLOGY TECH, ROMA A 599.0 Urinary Tract Infection Site Not Specified 02/05/2012 ANGELO NEUROPHYSIOLOGY TECH, ROMA A 995.3 Allergy Unspecified Not Elsewhere [...] Allergy Unspecified Not Elsewhere Classified 02/05/2012 ANGELO NEUROPHYSIOLOGY TECH, ROMA A 599.0 Urinary Tract Infection Site [...] K V72.42 Test Positive Result 03/12/2012 ANGELO NEUROPHYSIOLOGY TECH, ROMA A V72.42 Test Positive Result 03/12/2012 ANGELO NEUROPHYSIOLOGY TECH, ROMA A V72.42 Test Positive Result 03/12/2012 ANGELO NEUROPHYSIOLOGY TECH, ROMA A V72.42 Test Positive Result 03/12/2012 ANGELO NEUROPHYSIOLOGY TECH, ROMA A V72.42 Test Positive Result 03/12/2012 SAHARA NEUROPHYSIOLOGY TECH, KRIS Eric V72.42 Test Positive Result 03/12/2012 ANGELO NEUROPHYSIOLOGY TECH, ROMA A V72.42 Test Positive Result 03/12/2012 ANGELO NEUROPHYSIOLOGY TECH, ROMA A V72.42 Test Positive Result 03/12/2012 ANGELO NEUROPHYSIOLOGY TECH, ROMA A V72.42 Test Positive Result 03/12/2012 [...] PAIGE KUA K V04.81 FLU SHOT 03/26/2012 PNEN DO, RUBI K V22.1 , NORMAL OTHER [...] 03/26/2012 V22.1 , NORMAL OTHER 03/26/2012 VIRAJ NEUROPHYSIOLOGY TECH, JOSÉ LUIS S 654.20 PREVIOUS 03/26/2012 VIRAJ NEUROPHYSIOLOGY TECH, JOSÉ LUIS S V04.81 FLU SHOT 03/26/2012 VIRAJ NEUROPHYSIOLOGY TECH, JOSÉ LUIS S V22.1 , NORMAL OTHER 03/26/2012 PENN DO, RUBI K 654.20 PREVIOUS 03/26/2012 PENN DO, RUBI K V04.81 FLU SHOT 03/26/2012 PENN DO, RUBI K V22.1 , NORMAL OTHER 03/26/2012 ANGELO NEUROPHYSIOLOGY TECH, ROMA A 654.20 PREVIOUS 03/26/2012 ANGELO NEUROPHYSIOLOGY TECH, ROMA A V04.81 FLU SHOT 03/26/2012 ANGELO [...] V22.1 , NORMAL OTHER 03/26/2012 ANGELO CHOWDHURY, ORMA A 654.20 PREVIOUS 03/26/2012 ANGELO CHOWDHURY, ROMA [...] NORMAL OTHER 04/23/2012 RUBI PENN DO V72.31 PLATFORM STAPLER EXAM, ROUTINE 04/23/2012 RUBI PENN DO V74.5 STD SCREEN 04/23/2012 V72.31 Third Steel Pourer Exam, Routine 04/23/2012 V74.5 Std Screen 04/23/2012 PENN RUBI KU V72.31 Third Steel Pourer Exam, Routine 04/23/2012 RUBI PENN DO V74.5 Std Screen 04/23/2012 PENN RUBI KU V72.31 Third Steel Pourer Exam, Routine 04/23/2012 PENN RUBI KU V74.5 Std Screen 04/23/2012 V72.31 Third Steel Pourer Exam, Routine 04/23/2012 V74.5 Std Screen 04/23/2012 V72.31 Third Steel Pourer Exam, Routine 04/23/2012 V74.5 Std Screen 04/23/2012 PENN RUBI KU V72.31 Third Steel Pourer Exam, Routine 04/23/2012 RUBI PENN DO V74.5 Std Screen 04/23/2012 PENN RUBI KU V72.31 Third Steel Pourer Exam, Routine 04/23/2012 PENN RUBI KU V74.5 Std Screen 04/23/2012 V72.31 Third Steel Pourer Exam, Routine 04/23/2012 V74.5 Std Screen 04/23/2012 V72.31 Third Steel Pourer Exam, Routine 04/23/2012 V74.5 Std Screen 04/23/2012 V72.31 Third Steel Pourer Exam, Routine 04/23/2012 V74.5 Std Screen 04/23/2012 V72.31 Third Steel Pourer Exam, Routine 04/23/2012 V74.5 Std Screen 04/23/2012 V72.31 Third Steel Pourer Exam, Routine 04/23/2012 V74.5 Std Screen 04/23/2012 V72.31 Third Steel Pourer Exam, Routine 04/23/2012 V74.5 Std Screen 04/23/2012 JOSÉ LUIS CALI APRN V72.31 Third Steel Pourer Exam, Routine 04/23/2012 JOSÉ LUIS CALI APRN V74.5 Std Screen 04/23/2012 PENN RUBI KU V72.31 Third Steel Pourer Exam, Routine 04/23/2012 PENN RUBI KU V74.5 Std Screen 04/23/2012 ANGELO NEUROPHYSIOLOGY TECH, ROMA A V72.31 Third Steel Pourer Exam, Routine 04/23/2012 ANGELO NEUROPHYSIOLOGY TECH, ROMA A V74.5 Std Screen 04/23/2012 ANGELO NEUROPHYSIOLOGY TECH, ROMA A V72.31 Third Steel Pourer Exam, Routine 04/23/2012 ANGELO NEUROPHYSIOLOGY TECH, ROMA A V74.5 Std Screen 04/23/2012 ANGELO NEUROPHYSIOLOGY TECH, ROMA A V72.31 Third Steel Pourer Exam, Routine 04/23/2012 ANGELO NEUROPHYSIOLOGY TECH, ROMA A V74.5 Std Screen 04/23/2012 ANGELO NEUROPHYSIOLOGY TECH, ROMA A V72.31 Third Steel Pourer Exam, Routine 04/23/2012 ANGELO NEUROPHYSIOLOGY TECH, ROMA A V74.5 Std Screen 04/23/2012 KRIS SHOEMAKER APRN V72.31 Third Steel Pourer Exam, Routine 04/23/2012 KRIS SHOEMAKER APRN V74.5 Std Screen 04/23/2012 ANGELO NEUROPHYSIOLOGY TECH, ROMA A V72.31 Third Steel Pourer Exam, Routine 04/23/2012 ANGELO NEUROPHYSIOLOGY TECH, ROMA A V74.5 Std Screen 04/23/2012 ANGELO NEUROPHYSIOLOGY TECH, ROMA A V72.31 Third Steel Pourer Exam, Routine 04/23/2012 ANGELO NEUROPHYSIOLOGY TECH, ROMA A V74.5 Std Screen 04/23/2012 ANGELO NEUROPHYSIOLOGY TECH, ROMA A V72.31 Third Steel Pourer Exam, Routine 04/23/2012 ANGELO NEUROPHYSIOLOGY TECH, ROMA A V74.5 Std Screen 04/23/2012 TJ HOWELL MD V72.31 Third Steel Pourer Exam, Routine 04/23/2012 TJ HOWELL MD V74.5 [...] 381.4 Otitis Media Nonsuppurative Serous 07/15/2012 ANGELO NEUROPHYSIOLOGY TECH, ROMA A 381.4 Otitis Media Nonsuppurative Serous 07/15/2012 KRIS SHOEMAKER APRN 381.4 Otitis Media Nonsuppurative Serous 07/15/2012 ANGELO ANAYAN, ROMA A 381.4 Otitis Media Nonsuppurative Serous 07/15/2012 ANGELO ANAYAN, ROMA A 381.4 Otitis Media Nonsuppurative Serous 07/15/2012 ANGELO NEUROPHYSIOLOGY TECH, ROMA A 381.4 Otitis Media Nonsuppurative Serous [...] APRN V06.1 TDAP DX 08/06/2012 JOSÉ LUIS CALI APRN V77.1 Diabetes Screening 08/06/2012 VIRAJ NEUROPHYSIOLOGY TECHJOSÉ LUIS Dutton S V78.0 Anemia Screening 08/06/2012 PENN DO, RUBI K V06.1 TDAP DX 08/06/2012 PENN DO, RUBI K V77.1 Diabetes Screening 08/06/2012 PENN DO, RUBI K V78.0 Anemia Screening 08/06/2012 ANGELO NEUROPHYSIOLOGY TECH, ROMA A V06.1 TDAP DX 08/06/2012 ANGELO NEUROPHYSIOLOGY TECH, ROMA A V77.1 Diabetes Screening 08/06/2012 ANGELO NEUROPHYSIOLOGY TECH, ROMA A V78.0 Anemia Screening 08/06/2012 ANGELO NEUROPHYSIOLOGY TECH, ROMA A V06.1 TDAP DX 08/06/2012 ANGELO NEUROPHYSIOLOGY TECH, ROMA A V77.1 Diabetes Screening 08/06/2012 ANGELO NEUROPHYSIOLOGY TECH, ROMA A V78.0 Anemia Screening 08/06/2012 ANGELO NEUROPHYSIOLOGY TECH, ROMA A V06.1 TDAP DX 08/06/2012 ANGELO NEUROPHYSIOLOGY TECH, ROMA A V77.1 Diabetes Screening 08/06/2012 ANGELO NEUROPHYSIOLOGY TECH, ROMA A V78.0 Anemia Screening 08/06/2012 ANGELO NEUROPHYSIOLOGY TECH, ROMA A V06.1 TDAP DX 08/06/2012 ANGELO NEUROPHYSIOLOGY TECH, ROMA A V77.1 Diabetes Screening 08/06/2012 ANGELO NEUROPHYSIOLOGY TECH, ROMA A V78.0 Anemia Screening 08/06/2012 KRIS SHOEMAKER APRN V06.1 TDAP DX 08/06/2012 KRIS SHOEMAKER APRN V77.1 Diabetes Screening 08/06/2012 KRIS SHOEMAKER APRN V78.0 Anemia Screening 08/06/2012 ANGELO NEUROPHYSIOLOGY TECH, ROMA A V06.1 TDAP DX 08/06/2012 ANGELO NEUROPHYSIOLOGY TECH, ROMA A V77.1 Diabetes Screening 08/06/2012 ANGELO NEUROPHYSIOLOGY TECH, ROMA A V78.0 Anemia Screening 08/06/2012 ANGELO NEUROPHYSIOLOGY TECH, ROMA A V06.1 TDAP DX 08/06/2012 ANGELO NEUROPHYSIOLOGY TECH, ROMA A V77.1 Diabetes Screening 08/06/2012 ANGELO NEUROPHYSIOLOGY TECH, ROMA A V78.0 Anemia Screening 08/06/2012 ANGELO NEUROPHYSIOLOGY TECH, ROMA A V06.1 TDAP DX 08/06/2012 ANGELOROMA [...] KRIS SHOEMAKER APRN V28.6 GBS SCREENING 10/01/2012 ANGELOROMA Dutton APRN A V28.6 GBS SCREENING 10/01/2012 [...] STEPHENS APRN A 791.5 GLYCOSURIA 10/22/2012 ANGELO NEUROPHYSIOLOGY TECH, ROMA A 791.5 GLYCOSURIA 10/22/2012 ANGELO NEUROPHYSIOLOGY TECH, ROMA A 791.5 GLYCOSURIA 10/22/2012 KRIS SHOEMAEKR APRN 791.5 GLYCOSURIA 10/22/2012 ANGELO NEUROPHYSIOLOGY TECH, ROMA A 791.5 GLYCOSURIA 10/22/2012 ANGELO NEUROPHYSIOLOGY TECH, ROMA A 791.5 GLYCOSURIA 10/22/2012 ANGELO NEUROPHYSIOLOGY TECH, ROMA A 791.5 GLYCOSURIA 10/22/2012 TJ HOWELL [...] A 110.8 RINGWORM- UNSPECIFIED SITE 07/09/2013 ANGELO CHOWHDURY, ROMA A 599.0 URINARY TRACT INFECTION 07/09/2013 [...] A 599.0 URINARY TRACT INFECTION 07/09/2013 ANGELO NEUROPHYSIOLOGY TECH, ROMA A 110.8 RINGWORM- UNSPECIFIED SITE 07/09/2013 ANGELO NEUROPHYSIOLOGY TECH, ROMA A 599.0 URINARY TRACT INFECTION 07/09/2013 LYNDA BURR, TJ 110.8 RINGWORM- UNSPECIFIED SITE 07/09/2013 LYNDA BURR, TJ 599.0 URINARY TRACT INFECTION 08/29/2013 EPNN DO, RUBI K V72.42 TEST POSITIVE RESULT 08/29/2013 ANGELO NEUROPHYSIOLOGY TECH, ROMA A V72.42 TEST POSITIVE RESULT 08/29/2013 ANGELO NEUROPHYSIOLOGY TECH, ROMA A V72.42 TEST POSITIVE RESULT 08/29/2013 ANGELO NEUROPHYSIOLOGY TECH, ROMA A V72.42 TEST POSITIVE RESULT 08/29/2013 ANGELO NEUROPHYSIOLOGY TECH, ROMA A V72.42 TEST POSITIVE RESULT 08/29/2013 KRIS SHOEMAKER APRN V72.42 TEST POSITIVE RESULT 08/29/2013 ANGELO NEUROPHYSIOLOGY TECH, ROMA A V72.42 TEST POSITIVE RESULT 08/29/2013 ANGELO NEUROPHYSIOLOGY TECH, ROMA A V72.42 TEST POSITIVE RESULT 08/29/2013 ANGELO NEUROPHYSIOLOGY TECH, ROMA A V72.42 TEST POSITIVE RESULT 08/29/2013 TJ HOWELL MD V72.42 TEST POSITIVE RESULT 08/30/2013 ANDER BURR, JIM Schuster Ot 623.8 08/30/2013 ANDER BURR, JIM Schuster Ot 640.03 09/01/2013 ANGELO NEUROPHYSIOLOGY TECH, ROMA A 640.00 THREATENED 09/01/2013 ANGELO NEUROPHYSIOLOGY TECH, ROMA A 640.00 THREATENED 09/01/2013 ANGELO NEUROPHYSIOLOGY TECH, ROMA A 640.00 THREATENED 09/01/2013 ANGELO NEUROPHYSIOLOGY TECH, ROMA A 640.00 THREATENED 09/01/2013 KRIS SHOEMAKER APRN 640.00 THREATENED 09/01/2013 ANGELO NEUROPHYSIOLOGY TECH, ROMA A 640.00 THREATENED 09/01/2013 ANGELO NEUROPHYSIOLOGY TECH, ROMA A 640.00 THREATENED 09/01/2013 ANGELO NEUROPHYSIOLOGY TECH, ROMA A 640.00 THREATENED 09/01/2013 TJ HOWELL [...] 06/23/2014 MIRIAM COYNE DO Ot 654.23 06/23/2014 MIIRAM COYNE DO Ot V72.63 06/23/2014 MIRIAM COYNE DO Ot V74.8 07/15/2014 DARLENE TATE [employer] FAMILY Ot 611.79 06/28/2015 Ot 649.63 06/28/2015 Ot V28.81 06/28/2015 Ot 654.23 06/28/2015 Ot 656.63 06/28/2015 MIRIAM COYNE DO Ot 654.23 06/28/2015 MIRIAM COYNE DO Ot V72.63 06/28/2015 MIRIAM COYNE DO Ot V74.8 06/28/2015 DARLENE [employer] FAMILY Ot 611.79 06/30/2015 JANETH MANUEL NEUROPHYSIOLOGY TECH Ot Z34.80 07/15/2015 JANETH MANUEL NEUROPHYSIOLOGY TECH Ot Z34.80 09/01/2015 PENN DORUBI Ot Z36 [...] Procedures Code Description [place] [address] GC/CHLAM PROBE (STATE) 04/23/2012 [id number] UA OB DIP 2011 [id number] CULTURE UROGENITAL 04/25/2012 58934 ROUTINE VENIPUNCTURE 05/21/2012 09857 US OB ULTRASOUND 05/21/2012 TETRA TETRA SCREEN 10/2011 75273 UA OB DIP 2011 37174 US OB ULTRASOUND 05/26/2012 62574 ROUTINE VENIPUNCTURE 05/27/2012 26977 CBC 05/27/2012 30647 CRP 05/28/2012 74680 RUBELLA ANTIBODY, IGG 05/28/2012 35703 UA OB DIP 2011 76442 CULTURE UROGENITAL 06/04/2012 37764 UA OB DIP 2012 67869 ROUTINE VENIPUNCTURE 08/06/2012 18643 UA OB DIP 2012 58201 CBC 08/06/2012 63558 GLUCOSE SHAWN 1 HOUR 08/06/2012 46995 US OB - FOLLOW UP 08/07/2012 99266 GLUCOSE SHAWN 3 HOUR 08/07/2012 74971 UA OB DIP 2012 55862 NON-STRESS TEST 09/17/2012 28536 UA OB DIP 2012 55511 UA OB DIP 2012 60606 CULTURE GROUP B STREP VAG 10/02/2012 15238 UA OB DIP 2012 56104 UA OB DIP 2012 73656 UA OB DIP 2012 90164 GLUCOSE FINGER STICK 10/22/2012 72445 URINE TEST (IN-HOUSE) 12/09/2012 25591 GLUCOSE SHAWN 2 HOUR 12/11/2012 32928 UA LONG DIP 07/09 90349 ROUTINE VENIPUNCTURE 09/01/2013 46944 HCG QUANTITATIVE 09/01/2013 10727 ROUTINE VENIPUNCTURE 09/04/2013 99816 HCG QUANTITATIVE 09/04/2013 85905 ROUTINE VENIPUNCTURE 09/10/2013 55772 HCG QUANTITATIVE 09/11/2013 84683 ROUTINE VENIPUNCTURE 09/17/2013 33186 HCG QUANTITATIVE 09/17/2013 87932 UA W/ CULTURE IF INDICATED 12/05/2013 21333 CULTURE URINE 28882 CULTURE URINE 68418 UA W/ CULTURE IF INDICATED 03/29/2014 29741 CULTURE UROGENITAL 04/28/2014 08262 CULTURE URINE 05/2014 33198 GC/CHLAM PROBE (STATE) 04/28/2014 70693 PAP SMEAR 2013 Q0091 PAP SMEAR OBTAIN SMEAR 04/28/2014 37365 UA W/ CULTURE IF INDICATED 04/28/2014 72047 TRICHOMONAS (IN-HOUSE) 04/28/2014 63161 PROLACTIN 2013 98676 CULTURE WOUND (AEROBIC) 06/16/2014 24448 MRA HEAD W/O CONTRAST 06/16/2014 [id number] 01/10/2016 Results Encounters ACCT No. Visit Date/Time Discharge Status Pt. Type Provider Facility Loc./Unit Complaint [id number] 06/14/2014 15:41:00 06/14/2014 23: 59:59 CLS Outpatient TJ HOWELL MD [id number] 04/28/2014 08:54:00 04/28/2014 23: 59:59 CLS Outpatient ROMA STEPHENS APRN [id number] 04/28/2014 08:54:00 04/28/2014 23: 59:59 CLS Outpatient ROMA STEPHENS APRN [id number] 03/29/2014 08:45:00 03/29/2014 23: 59:59 CLS Outpatient ROMA STEPHENS APRN [id number] 12/05/2013 09:54:00 12/05/2013 23: 59:59 CLS Outpatient KRIS SHOEMAKER APRN [id number] 09/10/2013 15:32:00 09/10/2013 23: 59:59 CLS Outpatient ROMA STEPHENS APRN [id number] 09/04/2013 14:28:00 09/04/2013 23: 59:59 CLS Outpatient ROMA STEPHENS APRN [id number] 09/01/2013 14:00:00 09/01/2013 23: 59:59 CLS Outpatient ROMA TSEPHENS APRN [id number] 09/01/2013 14:00:00 09/01/2013 23: 59:59 CLS Outpatient ROMA STEPHENS APRN [id number] 08/29/2013 12:15:00 08/29/2013 23: 59:59 CLS Outpatient PENN DORUBI [id number] 07/09/2013 10:54:00 07/09/2013 23: 59:59 CLS Outpatient JOSÉ LUIS CALI APRN [id number] 09/17/2012 14:39:00 09/17/2012 23: 59:59 CLS Outpatient [id number] 09/03/2012 14:06:00 09/03/2012 23: 59:59 CLS Outpatient PENN DORUBI [id number] 08/06/2012 14:21:00 08/06/2012 23: 59:59 CLS Outpatient PENN DORUBI [id number] 07/15/2012 13:22:00 07/15/2012 23: 59:59 CLS Outpatient [id number] 07/09/2012 14:24:00 07/09/2012 23: 59:59 CLS Outpatient [id number] 06/03/2012 14:45:00 06/03/2012 23: 59:59 CLS Outpatient PENN DORUBI [id number] 05/27/2012 10:05:00 05/27/2012 23: 59:59 CLS Outpatient PENN DORUBI [id number] 05/21/2012 13:54:00 05/21/2012 23: 59:59 CLS Outpatient [id number] 04/23/2012 10:05:00 04/23/2012 23: 59:59 CLS Outpatient PENN DORUBI [id number] 12/09/2012 08:52:00 Document Registration [id number] 10/15/2012 14:46:00 Document Registration [id number] 10/08/2012 10:43:00 Document Registration [id number] 10/01/2012 14:25:00 Document Registration [id number] 09/03/2012 14:06:00 Document Registration
[2016-12-27] MEDS: NS IV 1000 ML 1,000 ML IV SCH ×3 (02:45→18:50)
[2016-12-27] MEDS ORDERED: CATHETER FLUSH 10 ML SYR IV PRN (03:15)
[2016-12-27] MEDS ORDERED: ONDANSETRON 4 MG/2 ML (SDV) Z0FRAN IV PRN (03:15)
[2016-12-27 04:21] LABS: BASOPHILS % (AUTO) 0 % (0-10); EOSINOPHILS # (AUTO) 0.1 10^3/uL (0.0-0.3); EOSINOPHILS % (AUTO) 1 % (0-10); LYMPHOCYTES # (AUTO) 3.3 X 10^3 (1.0-4.0); LYMPHOCYTES % (AUTO) 35 % (12-44); MEAN CORPUSCULAR HEMOGLOBIN 32 PG (25-34); MEAN CORPUSCULAR HGB CONC 32 G/DL (32-36); MEAN CORPUSCULAR VOLUME 97 FL (80-99); MEAN PLATELET VOLUME 10.5 FL (7.4-10.4); MONOCYTES # (AUTO) 0.6 X 10^3 (0.0-1.0); MONOCYTES % (AUTO) 7 % (0-12); NEUTROPHILS # (AUTO) 5.4 X 10^3 (1.8-7.8); NEUTROPHILS % (AUTO) 58 % (42-75); PLATELET COUNT 245 10^3/uL (130-400); RED BLOOD COUNT 4.25 10^6/uL (4.35-5.85); RED CELL DISTRIBUTION WIDTH 14.1 % (10.0-14.5); WHITE BLOOD COUNT 9.4 10^3/uL (4.3-11.0)
[2016-12-27] MEDS: CATHETER FLUSH 10 ML SYR IV SCH ×3 (05:13→21:39)
[2016-12-27 05:15] LABS: ALANINE AMINOTRANSFERASE 15 U/L (0-55); ALBUMIN 3.8 GM/DL (3.2-4.5); ANION GAP 11 MMOL/L (5-14); ASPARTATE AMINO TRANSFERASE 16 U/L (5-34); BILIRUBIN,TOTAL 0.2 MG/DL (0.1-1.0); BLOOD UREA NITROGEN 11 MG/DL (7-18); BUN/CREATININE RATIO 17; CALCIUM 8.2 MG/DL (8.5-10.1); CARBON DIOXIDE 19 MMOL/L (21-32); CHLORIDE 115 MMOL/L (98-107); CREATININE SERUM 0.66 MG/DL (0.60-1.30); GFR ESTIMATED > 60; GLUCOSE 79 MG/DL (70-105); MAGNESIUM 2.2 MG/DL (1.8-2.4); POTASSIUM 4.2 MMOL/L (3.6-5.0); SODIUM 145 MMOL/L (135-145); TOTAL PROTEIN 6.1 GM/DL (6.4-8.2)
--- NOTE | 2016-12-27 07:32 | Diagnostic Imaging Report ---
INDICATION: Drug overdose. Portable chest 4:18 AM. Heart size and pulmonary vascularity are normal. Lungs are clear. There are no effusions or pneumothoraces. IMPRESSION: Negative chest. Dictated by: Dictated on workstation # [id number]
[2016-12-27] MEDS ORDERED: FLUO20CA25 PO (10:50)
[2016-12-27] MEDS ORDERED: TRAZ-28 PO (10:53)
[2016-12-27] MEDS ORDERED: FLUO40CA PO (10:53)
[2016-12-27] MEDS ORDERED: PRD10T PO (10:53)
--- NOTE | 2016-12-27 15:58 | History & Physicial (CHS) ---
HPI Attending Physician Oliver Mckeon MD PCP Linnette Johnson DO Consult Date of Admission Dec 27, 2016 at 2:19 am Home Medications Home Medications Reviewed patient Home Medication Reconciliation Form Allergies Coded Allergies: Penicillins (Verified Allergy, Intermediate, HIVES, 02/10/12) sulfamethoxazole (Verified Allergy, Mild, RASH, 02/10/12) trimethoprim (Verified Allergy, Mild, RASH, 02/10/12) QRT-[id number]-Fsxmwh Hx Patient Social History Alcohol Use: Occasionally Uses Recreational Drug Use: Yes (THC) Drug of Choice: THC Smoking Status: Current Everyday Smoker Type Used: Cigarettes 2nd Hand Smoke Exposure: Yes Recent Foreign Travel: No Contact w/other who traveled: No Recent Hopitalizations: No Recent Infectious Disease Expo: No Physical Abuse Screen: No Sexual Abuse: No Immunizations Up To Date Tetanus Booster (TDap): Less than 5yrs Date of Influenza Vaccine: Mar 17, 2012 Family Medical History Family History: Abdominal aortic aneurysm 19 MOTHER (BRAIN ANEURYSM) Cardiovascular disease GRANDPARENTS Colon cancer GRANDPARENTS (BONE CA) Hypertension 19 MOTHER GRANDPARENTS Myocardial infarction GRANDPARENTS Psychosocial problem 19 MOTHER Physical Exam-(CHC) Physical Exam Vital Signs VS - Last 72 Hours, by Label 12/27/16 12/27/16 12/27/16 12/27/16 00:38 02:12 02:20 02:30 Temp 97.7 97.7 97.8 Pulse 92 86 79 78 Resp 24 21 12 8 B/P (MAP) 141/85 132/91 123/75 Pulse Ox 94 92 98 98 O2 Delivery Room Air Room Air Room Air Room Air 12/27/16 12/27/16 12/27/16 12/27/16 02:45 03:00 03:15 03:24 Pulse 77 76 77 Resp 22 22 21 B/P (MAP) 115/71 104/69 98/66 Pulse Ox 95 94 94 96 O2 Delivery Room Air Room Air Room Air Room Air 12/27/16 12/27/16 12/27/16 12/27/16 03:30 03:45 03:50 04:00 Temp 97.6 Pulse 100 81 80 Resp 10 14 15 B/P (MAP) 138/90 110/68 Pulse Ox 97 96 96 96 O2 Delivery Room Air Room Air Room Air Room Air 12/27/16 12/27/16 12/27/16 12/27/16 04:30 05:00 05:30 06:00 Pulse 81 82 77 78 Resp 20 22 18 21 B/P (MAP) 110/69 112/73 122/67 111/78 Pulse Ox 96 96 96 96 O2 Delivery Room Air Room Air Room Air Room Air 12/27/16 12/27/16 12/27/16 12/27/16 07:00 07:00 08:00 12:00 Temp 97.9 Pulse 88 16 Resp 15 B/P (MAP) 109/70 Pulse Ox 96 96 96 O2 Delivery Room Air Room Air Room Air 12/27/16 13:00 Pulse 71 Capillary Refill : Less Than 3 Seconds Clinical Quality Measures DVT/VTE Risk/Contraindication: Risk Factor Score Per Nursin RFS Level Per Nursing on Admit: 4+=Very High OLIVER MCKEON MD Dec 27, 2016 3:58 pm
[2016-12-28] VITALS (12 sets, daily range): BP systolic 111–127; BP diastolic 79–97
[2016-12-28] MEDS: NS IV 1000 ML 1,000 ML IV SCH ×2 (02:33→14:51)
[2016-12-28 04:12] LABS: BASOPHILS % (AUTO) 0 % (0-10); EOSINOPHILS # (AUTO) 0.1 10^3/uL (0.0-0.3); EOSINOPHILS % (AUTO) 1 % (0-10); LYMPHOCYTES # (AUTO) 3.1 X 10^3 (1.0-4.0); LYMPHOCYTES % (AUTO) 27 % (12-44); MEAN CORPUSCULAR HEMOGLOBIN 32 PG (25-34); MEAN CORPUSCULAR HGB CONC 33 G/DL (32-36); MEAN CORPUSCULAR VOLUME 97 FL (80-99); MEAN PLATELET VOLUME 10.2 FL (7.4-10.4); MONOCYTES # (AUTO) 0.7 X 10^3 (0.0-1.0); MONOCYTES % (AUTO) 6 % (0-12); NEUTROPHILS # (AUTO) 7.4 X 10^3 (1.8-7.8); NEUTROPHILS % (AUTO) 66 % (42-75); PLATELET COUNT 223 10^3/uL (130-400); RED BLOOD COUNT 3.99 10^6/uL (4.35-5.85); RED CELL DISTRIBUTION WIDTH 14.2 % (10.0-14.5); WHITE BLOOD COUNT 11.3 10^3/uL (4.3-11.0)
[2016-12-28 04:26] LABS: ANION GAP 8 MMOL/L (5-14); BLOOD UREA NITROGEN 9 MG/DL (7-18); BUN/CREATININE RATIO 13; CALCIUM 7.8 MG/DL (8.5-10.1); CARBON DIOXIDE 19 MMOL/L (21-32); CHLORIDE 114 MMOL/L (98-107); CREATININE SERUM 0.68 MG/DL (0.60-1.30); GFR ESTIMATED > 60; GLUCOSE 85 MG/DL (70-105); MAGNESIUM 2.2 MG/DL (1.8-2.4); PHOSPHORUS 2.2 MG/DL (2.3-4.7); SODIUM 141 MMOL/L (135-145)
[2016-12-28] MEDS: CATHETER FLUSH 10 ML SYR IV SCH ×2 (06:06→14:52)
--- NOTE | 2016-12-28 08:04 | Diagnostic Imaging Report ---
Portable upright radiograph of the chest. INDICATION: Drug overdose. COMPARISON: 12/27/16. FINDINGS: The lungs are clear. Heart size is normal. No effusion or pneumothorax. The mediastinum and mumtaz appear unremarkable. IMPRESSION: Unremarkable exam. Dictated by: Dictated on workstation # [id number]
== END 2016-12-28 16:08 ==
LOC: EDUNIT# 00:35 → ER 00:38 → UNDOADMOB 01:23 → ICU 01:23
PROVIDERS: ADMIT Pediatrics; ATTEND Pediatrics
DX: T43.211A Poisoning by selective serotonin and norepinephrine reuptake inhibitors, accidental (unintentional), initial encounter (principal); F10.129 Alcohol abuse with intoxication, unspecified; F12.90 Cannabis use, unspecified, uncomplicated; F17.210 Nicotine dependence, cigarettes, uncomplicated; Y90.6 Blood alcohol level of 120-199 mg/100 ml
CPT/HCPCS: 36415; 71010; 80048; 80053; 80306; 80320; 80329; 81000; 83735; 84100; 84703; 85025; 87081; 93005; 93041; 96360; G0378

== ENCOUNTER 2017-09-12 20:02 | Emergency (ER) | payer MEDICAID ==
[~2017-09-12] VITALS: Ht 165.1 cm; Wt 78.9 kg
[~2017-09-12 20:02] MED LIST changes: +FLUO20CA25 PO; +FLUO40CA PO; -HYDR-3812 PO; +PRD10T PO; +TRAZ-28 PO
[2017-09-12 20:14] VITALS: BP 180/93
[2017-09-12] MEDS ORDERED: CEPH-507 PO (23:12)
== END 2017-09-12 21:24 | disposition left against medical advice (07) ==
LOC: EDUNIT# 20:02 → ER 20:04
DX: S61.225A Laceration with foreign body of left ring finger without damage to nail, initial encounter (principal); W45.8XXA Other foreign body or object entering through skin, initial encounter
CPT/HCPCS: 99281

== ENCOUNTER 2017-09-12 21:43 | Emergency (ER) | payer MEDICAID ==
[~2017-09-12] VITALS: Ht 165.1 cm; Wt 78.9 kg
--- OUTSIDE RECORDS SUMMARY | 2017-09-12 21:49 | XMS REPORT ---
Author Author STEPHANIE SANCHEZ [facility] Address [address] [place] [address] Care Team Providers Care Wood Crafter Name Role Phone STEPHANIE SANCHEZ Unavailable PROBLEMS Type Condition ICD9-CM Code [id number] Code Onset Dates Condition Status SNOMED Code Problem Obesity (BMI 30.0-34.9) E66.9 Active 382019701800216 Problem Borderline personality disorder F60.3 Active 34989451 Problem Mixed hyperlipidemia E78.2 Active 543577168 Problem Moderate episode of recurrent major depressive disorder F33.1 Active 095635181 Problem Social anxiety disorder F40.10 Active 17231971 ALLERGIES Substance Reaction Event Type Date Status Penicillin V Potassium Unknown Drug Allergy Nov, Active Bactrim Unknown Drug Allergy Nov, Active Amoxicillin Unknown Drug Allergy Nov, Active ENCOUNTERS Encounter Location Date Diagnosis [facility] [id number] [place] [address] 42822- 0379 Aug, [facility] [id number] [place] [address] 13907- 7666 May, Social anxiety disorder F40.10 [facility] [id number] [place] [address] 23664- 9330 Apr, Social anxiety disorder F40.10 [facility] [id number] [place] [address] 77653- 9384 Feb, Social anxiety disorder F40.10 and External hemorrhoids K64.4 [facility] [id number] [place] [address] 86607 -7576 Jan, Sore throat J02.9 and Strep pharyngitis J02.0 [facility] [id number] [place] [address] 73311- 7980 Jan, Social anxiety disorder F40.10 and Borderline personality disorder F60.3 [facility] [id number] [place] [address] 46790- 8111 Jan, Encounter to establish care Z76.89 ; Moderate episode of recurrent major depressive disorder F33.1 and Obesity (BMI 30.0-34.9) E66.9 [place] [id number] [place] [address] 93065- 3034 Jan, Encounter to establish care Z76.89 ; Borderline personality disorder F60.3 ; Moderate episode of recurrent major depressive disorder F33.1 and Obesity (BMI 30.0-34.9) E66.9 [facility] [id number] [place] [address] 59111 -9179 Dec, External hemorrhoids K64.4 [place] [id number] [place] [address] 76280- 6262 Dec, Social anxiety disorder F40.10 and Borderline personality disorder F60.3 [place] [id number] [place] [address] 29811- 0812 Dec, Social anxiety disorder F40.10 and Borderline personality disorder F60.3 [place] [id number] [place] [address] 36983- 6978 Dec, Social anxiety disorder F40.10 [facility] [address] [facility] [id number] [place] [id number] Dec, Social anxiety disorder F40.10 [place] [id number] [place] [address] 16993- 0181 Nov, Cervical pain (neck) M54.2 and Cervical muscle strain, initial encounter S16.1XXA [place] [id number] [place] [address] 27806- 0786 Nov, Social anxiety disorder F40.10 ; Borderline personality disorder F60.3 and Moderate episode of recurrent major depressive disorder F33.1 [place] [id number] [place] [address] 47207- 5932 Sep, Social anxiety disorder F40.10 ; Borderline personality disorder F60.3 and Moderate episode of recurrent major depressive disorder F33.1 [place] [id number] [place] [address] 90957- 0778 Aug, Social anxiety disorder F40.10 ; Borderline personality disorder F60.3 and Moderate episode of recurrent major depressive disorder F33.1 [place] [address] [place] [address] 22044- 5908 Jun, Social anxiety disorder F40.10 ; Borderline personality disorder F60.3 and Moderate episode of recurrent major depressive disorder F33.1 [place] [id number] [place] [address] 97696- 1546 Apr, Social anxiety disorder F40.10 ; Borderline personality disorder F60.3 and Moderate episode of recurrent major depressive disorder F33.1 [place] [address] [place] [address] 91577- 0735 Mar, Social anxiety disorder F40.10 ; Borderline personality disorder F60.3 and Moderate episode of recurrent major depressive disorder F33.1 [place] [id number] [place] [address] 19492- 5767 07 Feb, 2016 Routine follow-up Z39.2 ; control counseling Z30.9 and depression F53 [place] [id number] [place] [address] 75666- 4153 18 Dec, 2015 care, subsequent in third trimester Z34.83 and 38 weeks gestation of Z3A.38 [place] [address] [place] [address] 32638- 4996 11 Dec, 2015 care, subsequent in third trimester Z34.83 and 37 weeks gestation of Z3A.37 [place] [address] [place] [address] 28465- 5612 06 Dec, 2015 care, subsequent in third trimester Z34.83 and 36 weeks gestation of Z3A.36 [place] [id number] [place] [address] 85406- 4618 27 Nov, 2015 care, subsequent in third trimester Z34.83 and 35 weeks gestation of Z3A.35 [place] [id number] [place] [address] 39776- 5354 Nov, care, subsequent in third trimester Z34.83 ; 33 weeks gestation of Z3A.33 and Encounter for immunization Z23 [place] [address] 32671- 1006 October, 28 weeks gestation of Z3A.28 ; care, subsequent in third trimester Z34.83 and History of section complicating O34.21 [facility] [address] [place] [address] 56919 -3829 October, Other seasonal allergic rhinitis J30.2 and Otalgia of left ear H92.02 [facility] [address] [id number] Sep, Dental examination Z01.20 and Caries K02.[address] 32764- 9936 Sep, care, subsequent in second trimester Z34.82 and 23 weeks gestation of Z3A.23 [facility] [address] [id number] Aug, Dental examination Z01.20 [place] [address] 46096- 5226 Aug, care, subsequent in second trimester Z34.82 ; Need for MMR vaccine Z23 and 19 weeks gestation of Z3A.19 [place] [address] 49579- 5362 05 Jul, 2015 [place] [address] 52870- 3923 04 Jul, 2015 care, subsequent in second trimester Z34.82 ; 14 weeks gestation of Z3A.14 ; Headache R51 ; UTI (urinary tract infection) in in second trimester O23.42 and Routine screening for STI (sexually transmitted infection) Z11.3 [place] [address] [place] [address] 07101- 4842 Jun, [place] [id number] [place] [address] 84268- 2442 Jun, Normal in multigravida Z34.80 ; BMI 31.0-31.9, adult Z68.31 ; Nausea and vomiting during O21.9 ; with 9 completed weeks gestation Z3A.09 ; Influenza vaccination administered at current visit Z23 ; History of section complicating O34.21 ; Bipolar disorder, unspecified F31.9 ; Agoraphobia F40.00 ; Social anxiety disorder F40.10 ; care, subsequent in first trimester Z34.81 and Tobacco use affecting in first trimester, antepartum O99.331 [place] [id number] [place] [address] 49485- 3902 17 Feb, 2015 Irritable bowel syndrome 564.1 [place] [id number] [place] [address] 09555- 2861 16 Feb, 2015 Irritable bowel syndrome 564.1 [place] [address] [place] [address] 34358- 8569 14 Sep, 2014 [place] [address] [place] [address] 58433- 4602 Sep, [place] [address] [place] [address] 40331- 4615 Jun, [place] [id number] [place] [address] 50992- 6312 Jun, [facility] [address] [place] [address] [id number]- 1318 Jun, [place] [address] [place] [address] 35963- 4406 May, [facility] [place] [facility] [address] [id number] [place] [address]- 1191 May, [facility] [place] [facility] [address] [id number] [place] [address]- 6778 May, [facility] [place] [facility] [address] [id number] [place] [address]- 7803 May, [facility] [place] [facility] [address] [id number] [place] [address]- 6623 May, [facility] [place] [facility] [address] [id number] [place] [address]- 8674 May, [facility] [place] [facility] [address] [id number] [place] [address]- 3912 May, [facility] [place] [facility] [address] [id number] [place] [address]- 3319 May, [facility] [place] [facility] [address] [id number] [place] [address]- 9217 May, [facility] [place] [facility] [address] [id number] [place] [address]- 2495 May, [facility] [place] [facility] [address] [id number] [place] [address]- 1080 Apr, [facility] [place] [facility] [address] [id number] [place] [address]- 3608 Apr, [facility] [place] [facility] [address] [id number] [place] [address]- 6930 Apr, [facility] [place] [facility] [address] [id number] [place] [address]- 2850 15 Apr, 2014 [facility] [place] [facility] [address] [id number] [place] [address]- 0372 13 Apr, 2014 [facility] [place] [facility] [address] [id number] [place] [address]- 3427 12 Apr, 2014 [facility] [place] [facility] [address] [id number] [place] [address]- 1896 Apr, [facility] [place] [facility] [address] [id number] [place] [address]- 0583 14 Mar, 2014 [facility] [place] [facility] [address] [id number] [place] [address]- 4651 Mar, [facility] [place] [facility] [address] [id number] [place] [address]- 6529 Mar, [facility] [place] [facility] [address] [id number] [place] [address]- 8033 Nov, [facility] [place] [facility] [address] [id number] [place] [address]- 8965 Nov, [facility] [place] [facility] [address] [id number] [place] [address]- 2752 Nov, [facility] [place] [facility] [address] [id number] [place] [address]- 1429 Sep, [facility] [place] [facility] [address] [id number] [place] [address]- 2022 Sep, [facility] [place] [facility] [address] [id number] [place] [address]- 0309 Sep, [facility] [place] [facility] [address] [id number] [place] [address]- 6780 Sep, [facility] [place] [facility] [address] [id number] [place] [address]- 7091 Aug, [facility] [place] [facility] [address] [id number] [place] [address]- 2251 31 Aug, 2013 [facility] [place] [facility] [address] [id number] [place] [address]- 6533 28 Aug, 2013 [facility] [place] [facility] [address] [id number] [place] [address]- 2637 Aug, [facility] [place] [facility] [address] [id number] [place] [address]- 8749 Aug, [facility] [place] [facility] [address] [id number] [place] [address]- 6674 24 Aug, 2013 [facility] [address] [id number] [place] [address]- 1325 24 Aug, 2013 [facility] [place] [facility] [address] [id number] [place] [address]- 5505 21 Aug, 2013 [facility] [address] [id number] [place] [address]- 6711 21 Aug, 2013 [facility] [address] [id number] [place] [address]- 9241 19 Aug, 2013 [facility] [address] [id number] [place] [address]- 9104 19 Aug, 2013 [facility] [address] [id number] [place] [address]- 9518 18 Aug, 2013 [facility] [address] [id number] [place] [address]- 2112 18 Aug, 2013 [facility] [address] [id number] [place] [address]- 8526 17 Aug, 2013 [facility] [address] [id number] [place] [address]- 4624 17 Aug, 2013 [facility] [address] [id number] [place] [address]- 5420 15 Aug, 2013 [facility] [place] [facility] [address] [id number] [place] [address]- 7282 15 Aug, 2013 [facility] [address] [id number] [place] [address]- 8605 Jun, [facility] [place] [facility] [address] [id number] [place] [address]- 6194 Jun, [facility] [place] [facility] [address] [id number] [place] [address]- 4646 Nov, [facility] [place] [facility] [address] [id number] [place] [address]- 8913 October, [facility] [address] [id number] [place] [address]- 8752 October, [facility] [address] [id number] [place] [address]- 9656 Sep, [facility] [address] [id number] [place] [address]- 3039 Sep, [facility] [address] [id number] [place] [address]- 5927 Sep, [facility] [address] [id number] [place] [address]- 0766 Sep, [facility] [address] [id number] [place] [address]- 5781 Sep, [facility] [address] [id number] [place] [address]- 6053 Sep, [facility] [address] [id number] [place] [address]- 8038 Aug, [facility] [address] [id number] [place] [address]- 4623 Aug, [facility] [address] [id number] [place] [address]- 4270 Jul, [facility] [address] [id number] [place] [address]- 2307 Jul, [facility] [place] [facility] [address] [id number] [place] [address]- 8463 Jul, [facility] [place] [facility] [address] [id number] [place] [address]- 8164 Jun, [facility] [place] [facility] [address] [id number] [place] [address]- 2087 Jun, [facility] [place] [facility] [address] [id number] [place] [address]- 0402 May, [facility] [place] [facility] [address] [id number] [place] [address]- 7689 21 May, 2012 [facility] [place] [facility] [address] [id number] [place] [address]- 6166 18 May, 2012 [facility] [place] [facility] [address] [id number] [place] [address]- 2546 18 May, 2012 [facility] [place] [facility] [address] [id number] [place] [address]- 0536 13 May, 2012 [facility] [place] [facility] [address] [id number] [place] [address]- 4866 13 May, 2012 [facility] [place] [facility] [address] [id number] [place] [address]- 2323 12 May, 2012 [facility] [place] [facility] [address] [id number] [place] [address]- 2638 12 May, 2012 [facility] [address] [id number] [place] [address]- 9596 11 May, 2012 [facility] [place] [facility] [address] [id number] [place] [address]- 2516 11 May, 2012 [facility] [place] [facility] [address] [id number] [place] [address]- 1671 10 May, 2012 [facility] [place] [facility] [address] [id number] [place] [address]- 6330 05 May, 2012 [facility] [place] [facility] [address] [id number] [place] [address]- 3298 05 May, 2012 [facility] [place] [facility] [address] [id number] [place] [address]- 4455 Apr, [facility] [place] [facility] [address] [id number] [place] [address]- 9134 Apr, [facility] [place] [facility] [address] [id number] [place] [address]- 0666 Apr, [facility] [place] [facility] [address] [id number] [place] [address]- 0925 07 Apr, 2012 [facility] [place] [facility] [address] [id number] [place] [address]- 6851 Apr, [facility] [place] [facility] [address] [id number] [place] [address]- 9751 Mar, [facility] [place] [facility] [address] [id number] [place] [address]- 8773 Mar, [facility] [place] [facility] [address] [id number] [place] [address]- 6476 16 Mar, 2012 [facility] [place] [facility] [address] [id number] [place] [address]- 3201 15 Mar, 2012 [facility] [place] [facility] [address] [id number] [place] [address]- 2231 Mar, [facility] [place] [facility] [address] [id number] [place] [address]- 0925 Mar, [facility] [place] [facility] [address] [id number] [place] [address]- 6653 Mar, [facility] [place] [facility] [address] [id number] [place] [address]- 0978 Feb, [facility] [place] [facility] [address] [id number] [place] [address]- 5324 Jan, [facility] [place] [facility] [address] [id number] [place] [address]- 1100 Jan, [facility] [place] [facility] [address] [id number] [place] [address]- 3515 14 Jan, 2012 [facility] [place] [facility] [address] [id number] [place] [address]- 1897 29 Aug, 2011 [facility] [place] [facility] [address] [id number] [place] [address]- 4638 13 Aug, 2011 [facility] [place] [facility] [address] [id number] [place] [address]- 9219 13 Aug, 2011 [facility] [place] [facility] [address] [id number] [place] [address]- 2306 Apr, [facility] [address] [facility] [id number] [place] [address] 2546 Apr, [facility] [address] [facility] [id number] [place] [address]- 2546 Dec, [facility] [address] [facility] [id number] [place] [address] 2546 October, [facility] [address] [facility] [id number] [place] [address]- 2546 Jul, [facility] [address] [facility] [id number] [place] [address]- 2136 Mar, [facility] [address] [facility] [id number] [place] [address] 2546 Mar, IMMUNIZATIONS No Known Immunizations SOCIAL HISTORY Never Assessed REASON FOR VISIT Injured neck, States her neck was cramping up so she tried to pop it and hurt it. Pain that radiates down -BELLE Marino PLAN OF CARE Activity Details Follow Up 4 Weeks Reason:est care VITAL SIGNS Height 66.5 in 2016-12-14 Weight 176 lbs 2016-12-14 Temperature 98.9 degrees Fahrenheit 2016-12-14 Heart Rate 90 bpm 2016-12-14 Respiratory Rate 18 2016-12-14 BMI 27.98 kg/m2 2016-12-14 Blood pressure systolic 110 mmHg 2016-12-14 Blood pressure diastolic 70 mmHg 2016-12-14 MEDICATIONS Medication Instructions Dosage Frequency Start Date End Date Duration Status PredniSONE 10 mg Orally Once a day 4 tabs x 4 days, 3 tabs x 4 days, 2 tabs x 4 days, then 1 tab x 4 days. 24h 30 Nov, 2016 Dec, 16 days Active Fluoxetine HCl 40 MG Orally Once a day 1 capsule in the morning 24h Sep Active Ortho Micronor 0.35 MG Orally Once a day 1 tablet 24h 07 Feb, 2016 Active Baclofen 20 mg Orally every 8 hrs 1 tablet with food or milk 8h 30 Nov, 2016 Dec, 10 days Active RESULTS Name Result Date Reference Range Xray : Spine, Cervical (IN HOUSE) 2016-12-14 PROCEDURES Procedure Date Ordered Result Body Site X-RAY EXAM OF NECK SPINE December 14, 2016 INSTRUCTIONS MEDICATIONS ADMINISTERED No Known Medications MEDICAL (GENERAL) HISTORY Type Description Date Medical History Bipolar with severe depression Medical History Social anxiety disorder Medical History Agoraphobia Medical History OCD Medical History IBS Surgical History appendectomy Surgical History section x3 Surgical History tonsillectomy Hospitalization History past surgery Hospitalization History UTI Hospitalization History [facility] Following suicide attempt 12/2016
--- OUTSIDE RECORDS SUMMARY | 2017-09-12 21:49 | XMS REPORT ---
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 Role Phone HERB STEPHENS Unavailable PROBLEMS Type Condition ICD9-CM Code [id number] Code Onset Dates Condition Status SNOMED Code Problem Obesity (BMI 30.0-34.9) E66.9 Active 529701230527055 Problem Borderline personality disorder F60.3 Active 11252723 Problem Mixed hyperlipidemia E78.2 Active 524960284 Problem Moderate episode of recurrent major depressive disorder F33.1 Active 724880424 Problem Social anxiety disorder F40.10 Active 58108562 ALLERGIES Substance Reaction Event Type Date Status Penicillin V Potassium Unknown Drug Allergy Jun, Active Bactrim Unknown Drug Allergy Jun, Active Amoxicillin Unknown Drug Allergy Jun, Active SOCIAL HISTORY No smoking Hx information available PLAN OF CARE Activity Details Follow Up 2 Months Reason: VITAL SIGNS Height 65 in 2016-06-26 Weight 179.7 lbs 2016-06-26 Heart Rate 76 bpm 2016-06-26 Respiratory Rate 18 2016-06-26 BMI 29.90 kg/m2 2016-06-26 Blood pressure systolic 131 mmHg 2016-06-26 Blood pressure diastolic 88 mmHg 2016-06-26 MEDICATIONS Medication Instructions Dosage Frequency Start Date End Date Duration Status 28-0.8 MG Orally daily 1 24h Jun, Active Prozac 10 mg Orally Once a day 1 capsule in the morning 24h Active Prozac 10 MG 1 CAPSULE IN THE MORNING ONCE A DAY ORALLY Active Ortho Micronor 0.35 MG Orally Once a day 1 tablet 24h Feb, Active Prozac 20 mg 1 CAPSULE IN THE MORNING ONCE A DAY ORALLY Active Prozac 20 mg Orally Once a day 1 capsule in the morning 24h Active RESULTS No Results PROCEDURES Procedure Date Ordered Related Diagnosis Body Site MH Office Visit, Est Pt., Level 2 Jun 26, 2016 IMMUNIZATIONS No Known Immunizations
--- OUTSIDE RECORDS SUMMARY | 2017-09-12 21:50 | XMS REPORT ---
Author Author ANGELOBILLREJI [facility] Address [address] [place] [address] Care Team Providers Care Pocketed Spring Assembler Name Role Phone HERB STEPHENS Unavailable PROBLEMS Type Condition ICD9-CM Code [id number] Code Onset Dates Condition Status SNOMED Code Problem Obesity (BMI 30.0-34.9) E66.9 Active 763197884793225 Problem Borderline personality disorder F60.3 Active 05681901 Problem Mixed hyperlipidemia E78.2 Active 565011285 Problem Moderate episode of recurrent major depressive disorder F33.1 Active 343965406 Problem Social anxiety disorder F40.10 Active 46952585 ALLERGIES No Information ENCOUNTERS Encounter Location Date Diagnosis [facility] [address] [address] Aug, [facility] [address] [address] May, Social anxiety disorder F40.10 [facility] [address] [address]- [address] Apr, Social anxiety disorder F40.10 [facility] [address] [address]- [address] Feb, Social anxiety disorder F40.10 and External hemorrhoids K64.4 [facility] [id number] [place] [address] Jan, Sore throat J02.9 and Strep pharyngitis J02.0 [facility] [id number] [place] [address] 50508- 6684 Jan, Social anxiety disorder F40.10 and Borderline personality disorder F60.3 [facility] [address] [address]- [address] Jan, Encounter to establish care Z76.89 ; Moderate episode of recurrent major depressive disorder F33.1 and Obesity (BMI 30.0-34.9) E66.9 [facility] [address] [place] [address] 13985- 3739 Jan, Encounter to establish care Z76.89 ; Borderline personality disorder F60.3 ; Moderate episode of recurrent major depressive disorder F33.1 and Obesity (BMI 30.0-34.9) E66.9 [facility] [id number] [place] [address] Dec, External hemorrhoids K64.4 [facility] [id number] [place] [address] 42555- 8095 Dec, Social anxiety disorder F40.10 and Borderline personality disorder F60.3 [facility] [id number] [place] [address] 95946- 4087 Dec, Social anxiety disorder F40.10 and Borderline personality disorder F60.3 [facility] [id number] [place] [address] 76908- 5668 Dec, Social anxiety disorder F40.10 [facility] [address] [id number] [id number] Dec, Social anxiety disorder F40.10 [facility] [address] [place] [address] 17090- 2958 Nov, Cervical pain (neck) M54.2 and Cervical muscle strain, initial encounter S16.1XXA [facility] [address] [place] [address] 22019- 8191 Nov, Social anxiety disorder F40.10 ; Borderline personality disorder F60.3 and Moderate episode of recurrent major depressive disorder F33.1 [facility] [address] [place] [address] 19626- 7804 Sep, Social anxiety disorder F40.10 ; Borderline personality disorder F60.3 and Moderate episode of recurrent major depressive disorder F33.1 [place] [address], [place] [address] 15 Aug, 2016 Social anxiety disorder F40.10 ; Borderline personality disorder F60.3 and Moderate episode of recurrent major depressive disorder F33.1 [place] [address] [address] 1476 Jun, Social anxiety disorder F40.10 ; Borderline personality disorder F60.3 and Moderate episode of recurrent major depressive disorder F33.1 [place] [address] [place] [address] 98371- 1028 Apr, Social anxiety disorder F40.10 ; Borderline personality disorder F60.3 and Moderate episode of recurrent major depressive disorder F33.1 [place] [address] [place] [address] 47503- 3049 07 Mar, 2016 Social anxiety disorder F40.10 ; Borderline personality disorder F60.3 and Moderate episode of recurrent major depressive disorder F33.1 [place] [address] [place] [address] 01015- 1822 07 Feb, 2016 Routine follow-up Z39.2 ; control counseling Z30.9 and depression F53 [place] [id number] [place] [address] 72922- 8881 18 Dec, 2015 care, subsequent in third trimester Z34.83 and 38 weeks gestation of Z3A.38 [place] [id number] [place] [address] 38257- 8927 Dec, care, subsequent in third trimester Z34.83 and 37 weeks gestation of Z3A.37 [facility] [id number] [place] [address] 97762- 0444 Dec, care, subsequent in third trimester Z34.83 and 36 weeks gestation of Z3A.36 [place] [address] [place] [address] 09361- 7078 Nov, care, subsequent in third trimester Z34.83 and 35 weeks gestation of Z3A.35 [facility] [id number] [place] [address] 73148- 9699 13 Nov, 2015 care, subsequent in third trimester Z34.83 ; 33 weeks gestation of Z3A.33 and Encounter for immunization Z23 [address] [address]- [address] October, 28 weeks gestation of Z3A.28 ; care, subsequent in third trimester Z34.83 and History of section complicating O34.21 [facility] [address] [address] October, Other seasonal allergic rhinitis J30.2 and Otalgia of left ear H92.02 [facility] [address] [id number] Sep, Dental examination Z01.20 and Caries K02.[address] [address]- [address]71 Sep, care, subsequent in second trimester Z34.82 and 23 weeks gestation of Z3A.23 [facility] [address] [id number] 24 Aug, 2015 Dental examination Z01.20 [facility] [address] [address]39- 2854 07 Aug, 2015 care, subsequent in second trimester Z34.82 ; Need for MMR vaccine Z23 and 19 weeks gestation of Z3A.19 [place] [facility] [id number] [place] [address] 24619- 4367 Jul, [address] [address]- 9792 04 Jul, 2015 care, subsequent in second trimester Z34.82 ; 14 weeks gestation of Z3A.14 ; Headache R51 ; UTI (urinary tract infection) in in second trimester O23.42 and Routine screening for STI (sexually transmitted infection) Z11.3 [facility] [address] [address] Jun, [facility] [id number] [place] [address] 05864- 8937 Jun, Normal in multigravida Z34.80 ; BMI [...] use affecting in first trimester, antepartum O99.331 [facility] [id number] [place] [address] 63438- 2039 17 Feb, 2015 Irritable bowel syndrome 564.1 [facility] [id number] [place] [address] 79926- 7818 16 Feb, 2015 Irritable bowel syndrome 564.1 [facility] [id number] [place] [address] 49279- 6779 14 Sep, 2014 [facility] [id number] [place] [address] 02082- 3693 Sep, [facility] [address] [address]- 1480 Jun, [facility] [address] [place] [address] 33952- 7585 Jun, [facility] [id number] [place] [address] 54424- 1833 Jun, [facility] [id number] [place] [address] 56216- 7473 May, [facility] [address], [place] [address]- 9668 May, [facility] [place] [facility] [address] [id number] [place] [address]- 7721 May, [facility] [place] [facility] [address] [id number] [place] [address]- 8372 May, [facility] [place] [facility] [address] [id number] [place] [address]- 1069 May, [facility] [place] [facility] [address] [id number] [place] [address]- 5007 May, [facility] [place] [facility] [address] [id number] [place] [address]- 3386 May, [facility] [place] [facility] [address] [id number] [place] [address]- 7154 May, [facility] [place] [facility] [address] [id number] [place] [address]- 1475 May, [facility] [place] [facility] [address] [id number] [place] [address]- 1142 May, [facility] [place] [facility] [address] [id number] [place] [address]- 8699 Apr, [facility] [place] [facility] [address] [id number] [place] [address]- 5008 Apr, [facility] [place] [facility] [address] [id number] [place] [address]- 8273 Apr, [facility] [place] [facility] [address] [id number] [place] [address]- 3828 15 Apr, 2014 [facility] [place] [facility] [address] [id number] [place] [address]- 3088 13 Apr, 2014 [facility] [place] [facility] [address] [id number] [place] [address]- 2855 12 Apr, 2014 [facility] [place] [facility] [address] [id number] [place] [address]- 2889 12 Apr, 2014 [facility] [place] [facility] [address] [id number] [place] [address]- 8474 14 Mar, 2014 [facility] [place] [facility] [address] [id number] [place] [address]- 5546 Mar, [facility] [place] [facility] [address] [id number] [place] [address]- 1191 Mar, [facility] [place] [facility] [address] [id number] [place] [address]- 2015 Nov, [facility] [place] [facility] [address] [id number] [place] [address]- 6814 Nov, [facility] [place] [facility] [address] [id number] [place] [address]- 7623 Nov, [facility] [place] [facility] [address] [id number] [place] [address]- 8654 Sep, [facility] [place] [facility] [address] [id number] [place] [address]- 3555 Sep, [facility] [place] [facility] [address] [id number] [place] [address]- 0301 Sep, [facility] [place] [facility] [address] [id number] [place] [address]- 6855 Sep, [facility] [place] [facility] [address] [id number] [place] [address]- 6935 Aug, [facility] [place] [facility] [address] [id number], [place] [address]- 8154 31 Aug, 2013 [facility] [place] [facility] [address] [id number], [place] [address]- 9372 28 Aug, 2013 [facility] [place] [facility] [address] [id number] [place] [address]- 6576 27 Aug, 2013 [facility] [place] [facility] [address] [id number] [place] [address]- 6088 27 Aug, 2013 [facility] [place] [facility] [address] [id number] [place] [address]- 0732 24 Aug, 2013 [facility] [place] [facility] [address] [id number] [place] [address]- 7999 24 Aug, 2013 [facility] [place] [facility] [address] [id number] [place] [address]- 0151 21 Aug, 2013 [facility] [place] [facility] [address] [id number] [place] [address]- 4726 21 Aug, 2013 [facility] [place] [facility] [address] [id number] [place] [address]- 7731 19 Aug, 2013 [facility] [place] [facility] [address] [id number] [place] [address]- 8704 19 Aug, 2013 [facility] [place] [facility] [address] [id number] [place] [address]- 8052 18 Aug, 2013 [facility] [place] [facility] [address] [id number] [place] [address]- 1754 18 Aug, 2013 [facility] [place] [facility] [address] [id number] [place] [address]- 9188 17 Aug, 2013 [facility] [place] [facility] [address] [id number] [place] [address]- 8857 17 Aug, 2013 [facility] [place] [facility] [address] [id number] [place] [address]- 8384 15 Aug, 2013 [facility] [place] [facility] [address] [id number] [place] [address]- 1544 15 Aug, 2013 [facility] [place] [facility] [address] [id number] [place] [address]- 9348 Jun, [facility] [place] [facility] [address] [id number] [place] [address]- 4729 Jun, [facility] [place] [facility] [address] [id number] [place] [address]- 8181 Nov, [facility] [place] [facility] [address] [id number] [place] [address]- 4376 October, [facility] [place] [facility] [address] [id number] [place] [address]- 8482 October, [facility] [place] [facility] [address] [id number] [place] [address]- 1292 Sep, [facility] [address] [id number] [place] [address]- 5706 Sep, [facility] [address] [id number] [place] [address]- 7256 Sep, [facility] [address] [id number] [place] [address]- 8328 Sep, [facility] [address] [id number] [place] [address]- 9377 Sep, [facility] [address] [id number] [place] [address]- 8004 Sep, [facility] [address] [id number] [place] [address]- 9712 Aug, [facility] [address] [id number] [place] [address]- [address] Aug, [facility] [address] [id number] [place] [address]- [address] Jul, [facility] [address] [id number] [place] [address]- [address] Jul, [facility] [address] [id number] [place] [address]- 1441 Jul, [facility] [address] [id number] [place] [address]- [address] Jun, [facility] [address] [id number] [place] [address]- 2104 Jun, [facility] [address] [id number] [place] [address]- 7776 May, [facility] [place] [facility] [address] [id number] [place] [address]- 2369 May, [facility] [address] [id number], [place] [address]- 0747 18 May, 2012 [facility] [place] [facility] [address] [id number] [place] [address]- 3225 18 May, 2012 [facility] [place] [facility] [address] [id number] [place] [address]- 4856 13 May, 2012 [facility] [place] [facility] [address] [facility] [id number] [place] [address]- 7636 13 May, 2012 [facility] [place] [facility] [address] [id number] [place] [address]- 1481 12 May, 2012 [facility] [place] [facility] [address] [id number] [place] [address]- 0673 12 May, 2012 [facility] [place] [facility] [address] [id number] [place] [address]- 2618 11 May, 2012 [facility] [id number] [address]- 2710 11 May, 2012 [facility] [place] [facility] [address] [id number] [place] [address]- 6281 10 May, 2012 [facility] [place] [facility] [address] [id number] [place] [address]- 7846 05 May, 2012 [facility] [place] [facility] [address] [facility] [id number] [place] [address]- 3544 05 May, 2012 [facility] [place] [facility] [address] [id number] [place] [address]- 8780 Apr, [facility] [place] [facility] [address] [id number], [place] [address]- 0397 Apr, [facility] [place] [facility] [address] [id number] [place] [address]- 5442 Apr, [facility] [place] [facility] [address] [facility] [id number] [place] [address]- 4412 07 Apr, 2012 [facility] [place] [facility] [address] [id number] [address]- 7578 07 Apr, 2012 [facility] [place] [facility] [address] [id number] [place] [address]- 6437 Mar, [facility] [place] [facility] [address] [id number] [place] [address]- 1465 22 Mar, 2012 [facility] [place] [facility] [address] [id number] [place] [address]- 3166 16 Mar, 2012 [facility] [place] [facility] [address] [id number] [place] [address]- 9916 15 Mar, 2012 [facility] [place] [facility] [address] [id number] [place] [address]- 2541 12 Mar, 2012 [facility] [place] [facility] [address] [id number] [place] [address]- 4283 10 Mar, 2012 [facility] [place] [facility] [address] [id number] [place] [address]- 2040 10 Mar, 2012 [facility] [place] [facility] [address] [id number] [place] [address]- 3849 26 Feb, 2012 [facility] [place] [facility] [address] [id number] [place] [address]- 9914 Jan, [facility] [place] [facility] [address] [id number] [place] [address]- 1942 Jan, [facility] [place] [facility] [address] [id number] [place] [address]- 4397 14 Jan, 2012 [facility] [place] [facility] [address] [id number] [place] [address]- 7519 29 Aug, 2011 [facility] [place] [facility] [address] [id number] [place] [address]- 7348 13 Aug, 2011 [facility] [place] [facility] [address] [id number] [place] [address]- 3226 13 Aug, 2011 [facility] [place] [facility] [address] [id number] [place] [address]- 6762 10 Apr, 2011 [facility] [place] [facility] [address] [id number] [place] [address]- 9363 Apr, [facility] [address] [facility] [id number], [place] [address]- 2546 Dec, [facility] [address] [facility] [id number], [place] [address]- 2546 October, [facility] [address] [facility] [id number], [place] [address]- 2546 Jul, [facility] [address], [place] [address]- 2546 Mar, [facility] [address] [facility] [id number], [place] [address]- 2546 Mar, IMMUNIZATIONS No Known Immunizations SOCIAL HISTORY Never Assessed REASON FOR VISIT Prozac note PLAN OF CARE VITAL SIGNS MEDICATIONS Medication Instructions Dosage Frequency Start Date End Date Duration Status Prozac 20 mg Orally Once a day 1 capsule in the morning 24h Dec, 30 day(s) Active Fluoxetine HCl 40 mg Orally Once a day 1 tablet in the morning 24h Sep, 30 days Active RESULTS No Results PROCEDURES No Known procedures INSTRUCTIONS MEDICATIONS ADMINISTERED No Known Medications MEDICAL [...]
--- OUTSIDE RECORDS SUMMARY | 2017-09-12 21:51 | XMS REPORT ---
Author Author HERB STEPHENS [facility] Address [address] [place] [address] Care Team Providers Care Trucksmith Name Role Phone HERB STEPHENS Unavailable PROBLEMS Type Condition ICD9-CM Code SLV14-AM Code Onset Dates Condition Status SNOMED Code Problem Obesity (BMI 30.0-34.9) E66.9 Active 352773117811086 Problem Borderline personality disorder F60.3 Active 07244961 Problem Mixed hyperlipidemia E78.2 Active 553284035 Problem Moderate episode of recurrent major depressive disorder F33.1 Active 774431324 Problem Social anxiety disorder F40.10 Active 44855789 ALLERGIES Substance Reaction Event Type Date Status Penicillin V Potassium Unknown Drug Allergy Nov, Active Bactrim Unknown Drug Allergy Nov, Active Amoxicillin Unknown Drug Allergy Nov, Active ENCOUNTERS Encounter Location Date Diagnosis [facility] [address] [address] Aug, [facility] [address] [address] May, Social anxiety disorder F40.10 [facility] [id number] [place] [address]7650- 8390 Apr, Social anxiety disorder F40.10 [facility] [id number] [place] [address] 50044- 8410 Feb, Social anxiety disorder F40.10 and External hemorrhoids K64.4 [facility] [id number] [place] [address] -[address]147 Jan, Sore throat J02.9 and Strep pharyngitis J02.0 [facility] [id number] [place] [address] 62087- 5139 Jan, Social anxiety disorder F40.10 and Borderline personality disorder F60.3 [facility] [address] [place] [address] 25808- 1366 Jan, Encounter to establish care Z76.89 ; Moderate episode of recurrent major depressive disorder F33.1 and Obesity (BMI 30.0-34.9) E66.9 [place] [address] [place] [address] 74076- 4161 Jan, Encounter to establish care Z76.89 ; Borderline personality disorder F60.3 ; Moderate episode of recurrent major depressive disorder F33.1 and Obesity (BMI 30.0-34.9) E66.9 [facility] [id number] [place] [address]80 -1650 Dec, External hemorrhoids K64.4 [place] [id number] [place] [address] 42218- 4880 Dec, Social anxiety disorder F40.10 and Borderline personality disorder F60.3 [place] [id number] [place] [address] 21708- 3392 Dec, Social anxiety disorder F40.10 and Borderline personality disorder F60.3 [place] [address] [place] [address] 50504- 5056 Dec, Social anxiety disorder F40.10 [facility] [address] [facility] [id number] [place] [id number] Dec, Social anxiety disorder F40.10 [place] [address] [place] [address] 00282- 8500 Nov, Cervical pain (neck) M54.2 and Cervical muscle strain, initial encounter S16.1XXA [place] [id number] [place] [address] 67472- 8408 Nov, Social anxiety disorder F40.10 ; Borderline personality disorder F60.3 and Moderate episode of recurrent major depressive disorder F33.1 [place] [id number] [place] [address] 13153- 1050 Sep, Social anxiety disorder F40.10 ; Borderline personality disorder F60.3 and Moderate episode of recurrent major depressive disorder F33.1 [place] [address] [place] [address] 95513- 2462 Aug, Social anxiety disorder F40.10 ; Borderline personality disorder F60.3 and Moderate episode of recurrent major depressive disorder F33.1 [place] [address] [place] [address] 02729- 2602 Jun, Social anxiety disorder F40.10 ; Borderline personality disorder F60.3 and Moderate episode of recurrent major depressive disorder F33.1 [place] [id number] [place] [address] 42329- 1918 Apr, Social anxiety disorder F40.10 ; Borderline personality disorder F60.3 and Moderate episode of recurrent major depressive disorder F33.1 [place] [address] [place] [address] 58485- 8103 Mar, Social anxiety disorder F40.10 ; Borderline personality disorder F60.3 and Moderate episode of recurrent major depressive disorder F33.1 [place] [address] [place] [address] 92566- 0584 07 Feb, 2016 Routine follow-up Z39.2 ; control counseling Z30.9 and depression F53 [place] [address] [place] [address] 12697- 2905 18 Dec, 2015 care, subsequent in third trimester Z34.83 and 38 weeks gestation of Z3A.38 [place] [address] [place] [address] 67876- 3735 11 Dec, 2015 care, subsequent in third trimester Z34.83 and 37 weeks gestation of Z3A.37 [place] [address] [place] [address] 01403- 6578 06 Dec, 2015 care, subsequent in third trimester Z34.83 and 36 weeks gestation of Z3A.36 [place] [id number] [place] [address] 86520- 5213 27 Nov, 2015 care, subsequent in third trimester Z34.83 and 35 weeks gestation of Z3A.35 [place] [id number] [place] [address] 24257- 3607 Nov, care, subsequent in third trimester Z34.83 ; 33 weeks gestation of Z3A.33 and Encounter for immunization Z23 [place] [address] [address]- [address] October, 28 weeks gestation of Z3A.28 ; care, subsequent in third trimester Z34.83 and History of section complicating O34.21 [facility] [address] [place] [address]885 [address]89 October, Other seasonal allergic rhinitis J30.2 and Otalgia of left ear H92.02 [facility] [address] [id number] Sep, Dental examination Z01.20 and Caries K02.[address] [address]- [address] Sep, care, subsequent in second trimester Z34.82 and 23 weeks gestation of Z3A.23 [facility] [address] [id number] Aug, Dental examination Z01.20 [place] [address] [address]- 4105 Aug, care, subsequent in second trimester Z34.82 ; Need for MMR vaccine Z23 and 19 weeks gestation of Z3A.19 [place] [address] [address]43- 1281 05 Jul, 2015 [place] [address] 55228- 0700 04 Jul, 2015 care, subsequent in second trimester Z34.82 ; 14 weeks gestation of Z3A.14 ; Headache R51 ; UTI (urinary tract infection) in in second trimester O23.42 and Routine screening for STI (sexually transmitted infection) Z11.3 [place] [address] [place] [address] 12942- 6455 Jun, [place] [id number] [place] [address] 42717- 1234 Jun, Normal in multigravida Z34.80 ; BMI [...] use affecting in first trimester, antepartum O99.331 [place] [id number] [place] [address] 80535- 7792 17 Feb, 2015 Irritable bowel syndrome 564.1 [place] [id number] [place] [address] 88122- 4348 16 Feb, 2015 Irritable bowel syndrome 564.1 [place] [address] [place] [address] 02682- 4936 14 Sep, 2014 [place] [address] [place] [address] 69036- 6450 Sep, [place] [address] [place] [address] 54932- 1547 Jun, [place] [id number] [place] [address] 49570- 1568 Jun, [facility] [address] [place] [address] 35230469- 4004 Jun, [place] [address] [place] [address] 48958- 1731 May, [facility] [place] [facility] [address] [id number] [place] [address]- 6817 May, [facility] [place] [facility] [address] [id number] [place] [address]- 4534 May, [facility] [place] [facility] [address] [id number] [place] [address]- 5467 May, [facility] [place] [facility] [address] [id number] [place] [address]- 3013 May, [facility] [place] [facility] [address] [id number] [place] [address]- 0653 May, [facility] [place] [facility] [address] [id number] [place] [address]- 8223 May, [facility] [place] [facility] [address] [id number] [place] [address]- 7691 May, [facility] [place] [facility] [address] [id number] [place] [address]- 4294 May, [facility] [place] [facility] [address] [id number] [place] [address]- 6651 May, [facility] [place] [facility] [address] [id number] [place] [address]- 4441 Apr, [facility] [place] [facility] [address] [id number] [place] [address]- 6922 Apr, [facility] [place] [facility] [address] [id number] [place] [address]- 1758 Apr, [facility] [place] [facility] [address] [id number] [place] [address]- 1868 15 Apr, 2014 [facility] [place] [facility] [address] [id number] [place] [address]- 0596 13 Apr, 2014 [facility] [place] [facility] [address] [id number] [place] [address]- 8092 12 Apr, 2014 [facility] [place] [facility] [address] [id number] [place] [address]- 1692 Apr, [facility] [place] [facility] [address] [id number] [place] [address]- 8694 14 Mar, 2014 [facility] [place] [facility] [address] [id number] [place] [address]- 6205 Mar, [facility] [place] [facility] [address] [id number] [place] [address]- 2820 Mar, [facility] [place] [facility] [address] [id number] [place] [address]- 0599 Nov, [facility] [place] [facility] [address] [id number] [place] [address]- 8921 Nov, [facility] [place] [facility] [address] [id number] [place] [address]- 2886 Nov, [facility] [place] [facility] [address] [id number] [place] [address]- 2678 Sep, [facility] [place] [facility] [address] [id number] [place] [address]- 7353 Sep, [facility] [place] [facility] [address] [id number] [place] [address]- 2790 Sep, [facility] [place] [facility] [address] [id number] [place] [address]- 0706 Sep, [facility] [place] [facility] [address] [id number] [place] [address]- 3649 Aug, [facility] [place] [facility] [address] [id number] [place] [address]- 9505 31 Aug, 2013 [facility] [place] [facility] [address] [id number] [place] [address]- 4660 28 Aug, 2013 [facility] [place] [facility] [address] [id number] [place] [address]- 1592 Aug, [facility] [place] [facility] [address] [id number] [place] [address]- 2564 Aug, [facility] [place] [facility] [address] [id number] [place] [address]- 1889 24 Aug, 2013 [facility] [address] [id number] [place] [address]- 6796 24 Aug, 2013 [facility] [place] [facility] [address] [id number] [place] [address]- 0623 21 Aug, 2013 [facility] [address] [id number] [place] [address]- 5246 21 Aug, 2013 [facility] [address] [id number] [place] [address]- 8724 19 Aug, 2013 [facility] [address] [id number] [place] [address]- 6168 19 Aug, 2013 [facility] [address] [id number] [place] [address]- 5927 18 Aug, 2013 [facility] [address] [id number] [place] [address]- 0207 18 Aug, 2013 [facility] [address] [id number] [place] [address]- 9836 17 Aug, 2013 [facility] [address] [id number] [place] [address]- 9716 17 Aug, 2013 [facility] [address] [id number] [place] [address]- 8451 15 Aug, 2013 [facility] [place] [facility] [address] [id number] [place] [address]- 2985 15 Aug, 2013 [facility] [address] [id number] [place] [address]- 2035 Jun, [facility] [place] [facility] [address] [id number] [place] [address]- 4560 Jun, [facility] [place] [facility] [address] [id number] [place] [address]- 6266 Nov, [facility] [place] [facility] [address] [id number] [place] [address]- 6587 October, [facility] [address] [id number] [place] [address]- 3524 October, [facility] [address] [id number] [place] [address]- 8791 Sep, [facility] [address] [id number] [place] [address]- 9308 Sep, [facility] [address] [id number] [place] [address]- 7466 Sep, [facility] [address] [id number] [place] [address]- 8654 Sep, [facility] [address] [id number] [place] [address]- 0927 Sep, [facility] [address] [id number] [place] [address]- 7929 Sep, [facility] [address] [id number] [place] [address]- 9262 Aug, [facility] [address] [id number] [place] [address]- 9296 Aug, [facility] [address] [id number] [place] [address]- 9017 Jul, [facility] [address] [id number] [place] [address]- 6617 Jul, [facility] [place] [facility] [address] [id number] [place] [address]- 7280 Jul, [facility] [place] [facility] [address] [id number] [place] [address]- 0096 Jun, [facility] [place] [facility] [address] [id number] [place] [address]- 5644 Jun, [facility] [place] [facility] [address] [id number] [place] [address]- 1977 May, [facility] [place] [facility] [address] [id number] [place] [address]- 9260 21 May, 2012 [facility] [place] [facility] [address] [id number] [place] [address]- 9776 18 May, 2012 [facility] [place] [facility] [address] [id number] [place] [address]- 1416 18 May, 2012 [facility] [place] [facility] [address] [id number] [place] [address]- 5376 13 May, 2012 [facility] [place] [facility] [address] [id number] [place] [address]- 0826 13 May, 2012 [facility] [place] [facility] [address] [id number] [place] [address]- 9917 12 May, 2012 [facility] [place] [facility] [address] [id number] [place] [address]- 0135 12 May, 2012 [facility] [address] [id number] [place] [address]- 9490 11 May, 2012 [facility] [place] [facility] [address] [id number] [place] [address]- 2457 11 May, 2012 [facility] [place] [facility] [address] [id number] [place] [address]- 2583 10 May, 2012 [facility] [place] [facility] [address] [id number] [place] [address]- 6610 05 May, 2012 [facility] [place] [facility] [address] [id number] [place] [address]- 1778 05 May, 2012 [facility] [place] [facility] [address] [id number] [place] [address]- 6083 Apr, [facility] [place] [facility] [address] [id number] [place] [address]- 0688 Apr, [facility] [place] [facility] [address] [id number] [place] [address]- 7366 Apr, [facility] [place] [facility] [address] [id number] [place] [address]- 6832 07 Apr, 2012 [facility] [place] [facility] [address] [id number] [place] [address]- 4674 Apr, [facility] [place] [facility] [address] [id number] [place] [address]- 6357 Mar, [facility] [place] [facility] [address] [id number] [place] [address]- 7163 Mar, [facility] [place] [facility] [address] [id number] [place] [address]- 6910 16 Mar, 2012 [facility] [place] [facility] [address] [id number] [place] [address]- 4925 15 Mar, 2012 [facility] [place] [facility] [address] [id number] [place] [address]- 4037 Mar, [facility] [place] [facility] [address] [id number] [place] [address]- 5218 Mar, [facility] [place] [facility] [address] [id number] [place] [address]- 7182 Mar, [facility] [place] [facility] [address] [id number] [place] [address]- 2154 Feb, [facility] [place] [facility] [address] [id number] [place] [address]- 0486 Jan, [facility] [place] [facility] [address] [id number] [place] [address]- 7827 Jan, [facility] [place] [facility] [address] [id number] [place] [address]- 0765 14 Jan, 2012 [facility] [place] [facility] [address] [id number] [place] [address]- 4898 29 Aug, 2011 [facility] [place] [facility] [address] [id number] [place] [address]- 9312 13 Aug, 2011 [facility] [place] [facility] [address] [id number] [place] [address]- 7019 13 Aug, 2011 [facility] [place] [facility] [address] [id number] [place] [address]- 8746 Apr, [facility] [address] [facility] [id number] [place] [address] 2546 Apr, [facility] [address] [facility] [id number] [place] [address] 2546 Dec, [facility] [address] [facility] [id number] [place] [address] 2546 October, [facility] [address] [facility] [id number] [place] [address] 2546 Jul, [facility] [address] [facility] [id number] [place] [address]- 7486 Mar, [facility] [address] [facility] [id number] [place] [address]- 4236 Mar, IMMUNIZATIONS No Known Immunizations SOCIAL HISTORY Never Assessed REASON FOR VISIT f/ethel Ott MA PLAN OF CARE Activity Details Follow Up 6 Weeks Reason: VITAL SIGNS Height 66.5 in 2016-12-05 Weight 178.1 lbs 2016-12-05 Heart Rate 80 bpm 2016-12-05 Respiratory Rate 18 2016-12-05 BMI 28.31 kg/m2 2016-12-05 Blood pressure systolic 120 mmHg 2016-12-05 Blood pressure diastolic 81 mmHg 2016-12-05 MEDICATIONS Medication Instructions Dosage Frequency Start Date End Date Duration Status Prozac 40 mg Orally Once a day 1 capsule in the morning 24h 15 days Active Trazodone HCl 50 mg Orally Once a day 1 tablet at bedtime as needed 24h 30 day(s) Active RESULTS No Results PROCEDURES No Known [...]
[2017-09-12] MEDS ORDERED: LIDOCAINE 1% INJ 50 ML (XYLOCAINE) VIAL ONE (23:00)
[2017-09-12] MEDS ORDERED: RX-CEPHALEXIN (KEFLEX) 250 MG CAP PPK#4 PO STA (23:02)
[2017-09-12] MEDS ORDERED: CEPH-507 PO (23:12)
--- NOTE | 2017-09-12 23:12 | ED Upper Extremity ---
General Chief Complaint: Foreign Body Stated Complaint: WOOD UNDER NAIL Nursing Triage Note: PT REPORTS SHE WAS CLEANING HER SONS ROOM ET GOT A SPLINTER CAUGHT UNDER THE FINGERNAIL OF 4TH DIGIT LT HAND ONSET 3HRS SHOE ASSOCIATE Source: patient Exam Limitations: no limitations History of Present Illness Date Seen by Provider: Sep 12, 2017 Time Seen by Provider: 23:09 Initial Comments ER with a splinter beneath the left fourth fingernail from cleaning at home. Onset: just prior to arrival Severity: moderate Pain/Injury Location: left 4th finger Allergies and Home Medications Allergies Coded Allergies: Penicillins (Verified Allergy, Intermediate, HIVES, 02/10/12) sulfamethoxazole (Verified Allergy, Mild, RASH, 02/10/12) trimethoprim (Verified Allergy, Mild, RASH, 02/10/12) Home Medications Cephalexin 500 Mg Capsule, 500 MG PO TID Prescribed by: ASTER RICHARD on 09/12/17 5272 Patient Home Medication List Home Medication List Reviewed: Yes Constitutional: see HPI EENTM: see HPI Respiratory: no symptoms reported Cardiovascular: no symptoms reported Genitourinary: no symptoms reported Musculoskeletal: see HPI Skin: no symptoms reported Psychiatric/Neurological: No Symptoms Reported Past Tqgsgao-Pohnlc-Wjlkwc Hx Patient Social History Alcohol Use: Denies Use Number of Drinks Today: FF Alcohol Beverage of Choice: Vodka Recreational Drug Use: No (DENIES 09/12/17) Drug of Choice: THC Smoking Status: Current Everyday Smoker Type Used: Cigarettes 2nd Hand Smoke Exposure: Yes Recent Foreign Travel: No Contact w/Someone Who Travel: No Recent Hopitalizations: No Immunizations Up To Date Tetanus Booster (TDap): Less than 5yrs Date of Influenza Vaccine: Mar 17, 2012 Seasonal Allergies Seasonal Allergies: No Surgeries History of Surgeries: Yes (C/S X2) Respiratory History of Respiratory Disorde: Yes (ASTHMA- ONLY A CHILD) Cardiovascular History of Cardiac Disorders: No Neurological History of Neurological Disord: No Reproductive System Hx Reproductive Disorders: No Sexually Transmitted Disease: No HIV/AIDS: No Female Reproductive Disorders: Ovarian Cyst Genitourinary History of Genitourinary Disor: Yes Genitourinary Disorders: Bladder Infection Gastrointestinal History of Gastrointestinal Di: Yes (IBS) Gastrointestinal Disorders: Gastroesophageal Reflux, Irritable Bowel Musculoskeletal History of Musculoskeletal Dis: No Endocrine History of Endocrine Disorders: No HEENT History of HEENT Disorders: No Cancer History of Cancer: No Psychosocial History of Psychiatric Problem: Yes (OCD, Suicide attempt age 17-18) Behavioral Health Disorders: Anxiety, Suicide Attempts, Bipolar, Depression Integumentary History of Skin or Integumenta: No Blood Transfusions History of Blood Disorders: No Adverse Reaction to a Blood Tr: No Family Medical History Family Medial History: Abdominal aortic aneurysm 19 MOTHER (BRAIN ANEURYSM) Cardiovascular disease GRANDPARENTS Colon cancer GRANDPARENTS (BONE CA) Hypertension 19 MOTHER GRANDPARENTS Myocardial infarction GRANDPARENTS Psychosocial problem 19 MOTHER Physical Exam Vital Signs Vital Signs - First Documented 09/12/17 22:58 Temp 96.5 Pulse 89 Resp 20 B/P (MAP) 126/88 (101) Pulse Ox 99 O2 Delivery Room Air Capillary Refill : General Appearance: WD/WN, no apparent distress HEENT: PERRL/EOMI, normal ENT inspection Neck: non-tender, full range of motion Shoulder: normal inspection, non-tender Elbow/Forearm: normal inspection, non-tender, Left Hand: Left, soft tissue tenderness (there is a wooden foreign body beneath the nail on the left finger. This was removed after anesthetizing the finger with 3 mL of 2% lidocaine without epinephrine via digital block. Splinter was then grasped with hemostats and pulled out being removed in its entirety) Neurologic/Psychiatric: alert, normal mood/affect, oriented x 3 Skin: normal color, warm/dry Progress/Results/Core Measures Results/Orders My Orders Orders - ASTER RICHARD APRN Hydrocodone/Apap 5/325 Tablet (Lortab 5 (09/12/17 23:15) Lidocaine 2% Injection 20 Ml (Xylocaine (09/12/17 23:15) Rx-Cephalexin Capsule (Rx-Keflex Capsule (09/12/17 23:02) Lidocaine 1% (Xylocaine 1%) (09/12/17 23:00) Vital Signs/I&O Vital Sign - Last 12Hours 09/12/17 22:58 Temp 96.5 Pulse 89 Resp 20 B/P (MAP) 126/88 (101) Pulse Ox 99 O2 Delivery Room Air Departure Impression Impression: Primary Impression: Superficial foreign body of finger Disposition: 01 HOME, SELF-CARE Condition: Stable Departure-Patient Inst. Decision time for Depature: 23:11 Referrals: STEPHANIE SANCHEZ APRN (PCP) Primary Care Physician [facility] (Family) Primary Care Physician Add. Discharge Instructions: 1. Return to ER for any redness or swelling of the fingertip may indicate infection. Take antibiotics as directed. All discharge instructions reviewed with patient and/or family. Voiced understanding. Scripts Cephalexin (Keflex) 500 Mg Capsule 500 MG PO TID, #9 CAP Prov: ASTER RICHARD APRN 09/12/17 ASTER RICHARD APRN Sep 12, 2017 23:12
[2017-09-12] MEDS ORDERED: HYDROcodone/APAP 5 MG/325 MG (LORTAB) TAB PO ONE (23:15)
[2017-09-12] MEDS ORDERED: LIDOCAINE 2% 20 ML (XYLOCAINE) VIAL INJ ONE (23:15)
[2017-09-12 23:16] VITALS: BP 0/0
[2017-09-13] MEDS ORDERED: LIDOCAINE 1% INJ 50 ML (XYLOCAINE) VIAL IJ ONE (03:00)
== END 2017-09-12 23:16 | disposition home or self-care (01) ==
LOC: EDUNIT# 21:43 → ER 21:45
DX: S60.455A Superficial foreign body of left ring finger, initial encounter (principal); J45.909 Unspecified asthma, uncomplicated; F41.9 Anxiety disorder, unspecified; F31.9 Bipolar disorder, unspecified; K21.9 Gastro-esophageal reflux disease without esophagitis; F12.10 Cannabis abuse, uncomplicated; F17.210 Nicotine dependence, cigarettes, uncomplicated; Z88.0 Allergy status to penicillin; Z82.49 Family history of ischemic heart disease and other diseases of the circulatory system; Z80.0 Family history of malignant neoplasm of digestive organs; Z87.19 Personal history of other diseases of the digestive system; Z91.5 Personal history of self-harm; Z88.2 Allergy status to sulfonamides; Z88.3 Allergy status to other anti-infective agents; Z87.448 Personal history of other diseases of urinary system; W26.9XXA Contact with unspecified sharp object(s), initial encounter
CPT/HCPCS: 64450

== ENCOUNTER → 2017-10-24 | Outpatient (CLI) | payer MEDICAID ==
[~2017-10-24] MED LIST changes: +CEPH-507 PO
--- NOTE | 2017-10-24 09:07 | Diagnostic Imaging Report ---
PROCEDURE: US Abdomen, limited. TECHNIQUE: Multiple realtime grayscale images were obtained over the abdomen in various projections. INDICATION: Abdominal wall strain Survey of the abdominal wall does not show evidence of hernia. There is no pathologic mass or fluid collection. Impression: Negative ultrasound survey of the anterior abdominal wall. Dictated by: Dictated on workstation # [id number]
== END ==
LOC: RAD 06:38
PROVIDERS: ATTEND Nurse Practitioner
DX: S39.011A Strain of muscle, fascia and tendon of abdomen, initial encounter (principal)
CPT/HCPCS: 76705

== ENCOUNTER → 2018-01-28 | Outpatient (CLI) | payer MEDICAID ==
[~2018-01-28] MED LIST changes: +TRAZ-189 PO; -TRAZ-28 PO
--- NOTE | 2018-01-28 16:50 | Diagnostic Imaging Report ---
Indication: Subchorionic bleed. The study is performed for followup. Comparison is made with prior study from 12/09/2017. There is a single live fetus in a variable presentation. heart rate was recorded at 140 beats per minute. Placenta is posterior. Gestational sac shape appears within normal limits. Previously noted subchronic bleed is no longer appreciated. Ovaries were not visualized. Impression: Resolution of previously noted subchorionic bleed. Dictated by: Dictated on workstation # [id number]
== END ==
LOC: RAD 13:32
PROVIDERS: ATTEND Family Medicine
DX: Z34.82 Encounter for supervision of other normal pregnancy, second trimester (principal); Z3A.18 18 weeks gestation of pregnancy
CPT/HCPCS: 76815